=== PATIENT | male | born 1980 | race Caucasian/White ===

== ENCOUNTER 2022-10-29 22:48 | Emergency (ER) | payer MEDICARE, MEDICAID, SELFPAY ==
--- NOTE | ~2022-10-29 | NM_ITS ---
Nuclear Medicine Procedure: Perfusion/Ventilation Lung Scan History: Pulmonary embolus. Interpretation: Ventilation portion exam was not performed due to Covid 19 precautions. 5.5 mCi. of Technetium-labeled microspheres were injected intravenously and multiple images obtained in 8 projections revealed normal perfusion to the lungs without any segmental or subsegmental defects . Impression: Normal perfusion lung scan. This excludes clinically significant pulmonary emboli. ............................................................... The following are reference parameters for VQ scan interpretation: 1. Normal or Near-Normal Lung Scan: This excludes clinically significant pulmonary embolism. Angiography is not necessary. 2. High Probability for Pulmonary Embolism: There is over 90% probability for acute pulmonary embolism. Angiography is not necessary for confirmation. 3. A. Intermediate (low end): Whereas unlikely to be PE based on V/Q scan alone, there is a 10-25% probability for pulmonary embolism (PE) based upon the level of clinical suspicion. B. Intermediate (high end): Depending upon the level of clinical suspicion, there is a 30-60% probability for pulmonary embolism. Reviewed, dictated and finalized at location . INERY RIGGER Impression: Normal perfusion lung scan. This excludes clinically significant pu lmonary emboli. ............................................................... The following are reference parameters for VQ scan interpretation: 1. Normal or Near-Normal Lung Scan: This excludes clinically significant pulmonary embolism. Angiography is not necessary. 2. High Probability for Pulmonary Embolism: There is over 90% probability for acute pulmonary embolism. Angiography is not necessary for confirmation. 3. A. Intermediate (low end): Whereas unlikely to be PE based on V/Q scan alone, there is a 10-25% probability for pulmonary embolism (PE) based upon the level of clinical suspicion. B. Intermediate (high end): Depending upon the level of clinical suspicion, there is a 30-60% probability for pulmonary embolism.
--- NOTE | ~2022-10-29 | XR_ITS ---
Clinical Indication: Chest pain PA and lateral views of the chest: Comparison: 06/12/2016 Findings: Questionable minimal bibasilar groundglass opacity. No pleural effusion or pneumothorax. Ca rdiomediastinal silhouette is within normal limits. Bones and soft tissues are unremarkable. Impression: Questionable minimal bibasilar ground glass opacity. Correlate for mild pulmonary edema or atypical i nfection. Reviewed, dictated and finalized at location M. ENTER MAINTENANCE Impression: Questionable minimal bibasilar ground glass opacity. Correlate for mild pulmona ry edema or atypical infection.
--- NOTE | 2022-10-29 22:49 | ECG_ITS ---
Measurements Intervals [place] Rate: 116 P: 41 MD: 165 QRS: 17 QRSD: 81 T: 97 QT: 341 QTc: 475 Interpretive Statements SINUS TACHYCARDIA LEFT ATRIAL ENLARGEMENT INCOMPLETE RIGHT BUNDLE BRANCH BLOCK BORDERLINE ST-T WAVE ABNORMALITY- DIFFUSE LEADS BASELINE ARTIFACT- I, II, III, AVR, AVL ABNORMAL ECG NO PREVIOUS ECG AVAILABLE FOR COMPARISON Electronically Signed On 10-30-2022 8:02:53 DISTRIBUTOR OPERATOR by Saurabh Torres D.O.
[2022-10-29 23:03] VITALS: BP 175/110; PULSE 119; RESP 28; TEMP 36.6; O2SAT 100
[2022-10-29 23:37] LABS: Basophils Absolute Auto 0.1 K/mm3 (0.0-0.1); Basophils Percent Auto 0.8 % (0.2-1.2); Eosinophils Absolute Auto 0.4 K/mm3 (0-0.3); Eosinophils Percent Auto 2.3 % (0-4.4); Hematocrit 41.6 % (42.0-52.0); Hemoglobin 13.8 g/dL (14.0-18.0); Immature Granulocyte Absolute 0.29 K/mm3 (0.00-0.031); Immature Granulocyte Percent A 1.6 % (0-0.5); Lymphocytes Absolute Auto 2.58 K/mm3 (0.9-3.2); Lymphocytes Percent Auto 14.5 % (18.3-44.2); Mean Corpuscular HGB Conc 33.2 g/dl (32-36); Mean Corpuscular Hemoglobin 29.1 pg (26-34); Mean Corpuscular Volume 87.8 fl (80-100); Mean Platelet Volume 11.2 fl (7.4-10.4); Monocytes Percent Auto 5.8 % (2.6-8.5); Neutrophils Absolute Auto 13.3 K/mm3 (1.3-6.7); Platelet Count Result 432 k/mm3 (150-375); Red Blood Count 4.74 M/mm3 (4.6-6.20); Red Cell Distribution Width 14.4 % (11.5-14.5); White Blood Count 17.8 K/mm3 (4.5-10.0)
[2022-10-29 23:47] LABS: INR 1.1; Prothrombin Time 13.5 Seconds (11.1-14.7)
[2022-10-29 23:48] LABS: Partial Thromboplastin Time 34.7 SECONDS (22.3-36.8)
--- NOTE | 2022-10-29 23:56 | PC.NURSE ---
patient outside to smoke at this time
[2022-10-30 00:06] LABS: Alanine Aminotransferase 40 U/L (6-50); Albumin Level 4.4 g/dL (3.5-5.1); Alkaline Phosphatase 122 U/L (38-126); Anion Gap 7 mmol/L (8-16); Aspartate Amino Transferase 24 U/L (17-59); Bilirubin,Total 0.3 mg/dL (0.2-1.3); Blood Urea Nitrogen 16 mg/dL (9-20); Calcium 9.6 mg/dL (8.4-10.2); Carbon Dioxide 27 mmol/L (22-30); Chloride 102 mmol/L (98-107); Estimated CRCL calculation 82 ml/min; Estimated Glomerular Filt Rate > 60; Glucose 116 mg/dL (65-110); Lipase 429 U/L (23-300); Potassium 4.1 mmol/L (3.4-5.0); Sodium 136 mmol/L (137-145)
[2022-10-30 00:15] LABS: Troponin I 0.018 ng/mL (0.000-0.034)
--- NOTE | 2022-10-30 01:33 | PC.NURSE ---
noted yoselin has walked out to parking lot several times to smoke no sob noted no discomfort noted
[2022-10-30 03:11] VITALS: PULSE 110
[2022-10-30 03:22] LABS: Troponin I 0.021 ng/mL (0.000-0.034)
--- NOTE | 2022-10-30 03:27 | ED.CHESTPAIN ---
HPI - Chest Pain General Chief Complaint: Chest Pain Stated Complaint: chest pain for one week [facility] Time Seen by Provider: 10/30/22 02:44 History of Present Illness HPI narrative: This is a 42-year-old gentleman with reported past medical history of CHF and multiple PEs on Xarelto, who presents to the emergency department complaining of chest pain for the past week. He describes the pain as sharp, in the left chest without radiation, aggravated by cough and physical exertion. He denies nausea/vomiting or diaphoresis. He he also complains of cough productive of thick yellow without blood. He has no other complaints today. Related Data Allergies Allergy/AdvReac Type Severity Reaction Status Date / Time iodine Allergy Unknown Verified 07/06/16 14:14 Contrast Media Allergy Unknown Uncoded 03/31/16 21:54 Review of Systems Review of Systems: CONSTITUTIONAL: Denies fever, chills, or sweats. CARDIOVASCULAR: Left-sided chest pain and palpitation denies edema. RESPIRATORY: Cough productive of yellow sputum without blood denies dyspnea. GASTROINTESTINAL: Denies abdominal pain, nausea, vomiting, or diarrhea. GENITOURINARY: Denies dysuria or hematuria. SKIN: Denies rash or itching. MUSCULOSKELETAL: Denies back pain, joint pain, or myalgia. NEUROLOGIC: Denies headache, numbness, dizziness, or weakness. PSYCHIATRIC: Denies anxiety or depression. PMFSH Past Medical History Medical History (Updated 10/30/22 @ 07:26 by Thai Ward MD) Benign essential hypertension Bipolar 1 disorder, depressed COPD with asthma Personal history of pulmonary embolism PTSD (post-traumatic stress disorder) Family History Family History Other Hypertension Social History Social History (Updated 10/30/22 @ 03:30 by Thai Ward MD) Smoking status: Former smoker Alcohol intake: never Substance use: never Exam Narrative: GENERAL: Well-developed, well-nourished, appears anxious. Mildly diaphoretic HEAD: Normocephalic, atraumatic. EYES: PERRLA and EOMI. ENT: Nares clear, no rhinorrhea or epistaxis. Mucous membranes moist. Oropharynx without tonsillar hypertrophy exudate or other lesions. NECK: Supple. No adenopathy or masses. No carotid bruits or JVD CHEST: Clear to auscultation. No respiratory distress. No wheezes rales or rhonchi HEART: Tachycardic with regular rhythm. No murmur heard. Normal peripheral pulses. ABDOMEN: Soft, nontender, nondistended, normal active bowel sounds. EXTREMITIES: Normal range of motion. No edema. SKIN: Warm, dry, no rash. NEURO: No focal deficits. Alert and oriented x3. PSYCH: Normal mood and affect. Course Course Emergency Course: 03:46 - On my review of chest x-ray, there are changes consistent with pulmonary edema versus patchy infiltration. BNP elevated to 1480 will treat with IV Lasix and a dose of azithromycin. 04:05 - Received notification from tree and shrub technician, the patient has a noted history of allergic reaction to contrast dye. After speaking with the patient, he states he suffered cardiac arrest after receiving contrast will order D-dimer and potential VQ scan. Requested copy of radiology results from the outside hospital. 04:49 - Repeat troponin equivocal and overall negative. VQ scan will not be completed until 06:00. 06:30 -patient underwent chest x-ray at outside hospital with changes concerning for pulmonary edema. It does not appear the patient underwent imaging for PE. 07:00 - Patient signed out to oncoming ED physician, Dr. Fairchild, pending V/Q results. I anticipate admission for new onset CHF. Vital Signs Vital signs: Vital Signs Temperature 97.8 F 10/29/22 23:03 Pulse Rate 119 H 10/29/22 23:03 Respiratory Rate 28 H 10/29/22 23:03 Blood Pressure 175/110 H 10/29/22 23:03 Pulse Oximetry 100 10/29/22 23:03 Oxygen Delivery Room Air 10/29/22 23:03 Temperature 97.8 F 10/29/22 23:03 Pulse
[2022-10-30 03:35] LABS: D Dimer 0.56 ug/mL (<0.48)
[2022-10-30 03:44] LABS: NT Pro B Type Natriuretic Pept 1480 pg/mL (5-100)
[2022-10-30] MEDS: ASPIRIN 81 MG CHEWABLE TABLET 324 MG PO (03:54)
[2022-10-30] MEDS: FUROSEMIDE INJ 40 MG/4 ML VIAL IV PUSH (04:02)
[2022-10-30 04:21] LABS: Influenza A QL RT-PCR Negative (Negative); Influenza B QL RT-PCR Negative (Negative); SARS-CoV-2 RNA PCR Negative
[2022-10-30] MEDS: AZITHROMYCIN 250 MG TABLET 500 MG PO (05:07)
[2022-10-30 07:00] VITALS: BP 163/96; PULSE 106; RESP 24; O2SAT 98
[2022-10-30 07:21] LABS: Influenza A QL RT-PCR Negative (Negative); Influenza B QL RT-PCR Negative (Negative); SARS-CoV-2 RNA PCR Negative
--- NOTE | 2022-10-30 08:18 | ED.CHESTPAIN ---
HPI - Chest Pain General Chief Complaint: Chest Pain Stated Complaint: chest pain for one week [facility] Time Seen by Provider: 10/30/22 02:44 Related Data Allergies Allergy/AdvReac Type Severity Reaction Status Date / Time iodine Allergy Unknown Verified 07/06/16 14:14 Contrast Media Allergy Unknown Uncoded 03/31/16 21:54 [facility] Past Medical History Medical History (Updated 10/30/22 @ 07:26 by Thai Ward MD) Benign essential hypertension Bipolar 1 disorder, depressed COPD with asthma Personal history of pulmonary embolism PTSD (post-traumatic stress disorder) Family History Family History Other Hypertension Social History Social History (Updated 10/30/22 @ 03:30 by Thai Ward MD) Smoking status: Former smoker Alcohol intake: never Substance use: never Course Reevaluation(s) Reevaluation #1: Patient feeling much better, and declined to be hospitalized. I declare that I have personally explained to the patient the risks and consequences involved in leaving this facility at this time. the benefits of continued treatment and/or hospitalization. And the alternatives. If any. to continued treatment and/or hospitalization. if applicable.I have not identified any psychosis, drugs, mental illness, or medical illness that alters decision-making capacity (reasoning abilities ). Date: 10/30/22 Time: 09:14 Consultations Consultation #1: DR TURPIN Date: 10/30/22 Time: 09:12 Vital Signs Vital signs: Vital Signs Temperature 36.6 C 10/29/22 23:03 Pulse Rate 119 H 10/29/22 23:03 Respiratory Rate 28 H 10/29/22 23:03 Blood Pressure 175/110 H 10/29/22 23:03 Pulse Oximetry 100 10/29/22 23:03 Oxygen Delivery Room Air 10/29/22 23:03 Temperature 36.6 C 10/29/22 23:03 Pulse Rate 110 H 10/30/22 03:11 Respiratory Rate 28 H 10/29/22 23:03 Blood Pressure 175/110 H 10/29/22 23:03 Pulse Oximetry 100 10/29/22 23:03 Oxygen Delivery Room Air 10/29/22 23:03 MDM - Chest Pain Lab Data 10/29/22 23:25 10/29/22 23:26 Labs: Lab Results 10/29/22 10/29/22 10/29/22 Range/Units 23:25 23:25 23:25 WBC 17.8 H (4.5-10.0) K/mm3 RBC 4.74 (4.6-6.20) M/mm3 Hgb 13.8 L (14.0-18.0) g/dL Hct 41.6 L (42.0-52.0) % MCV 87.8 (80-100) fl MCH 29.1 (26-34) pg MCHC 33.2 (32-36) g/dl RDW 14.4 (11.5-14.5) % Plt Count 432 H (150-375) k/mm3 MPV 11.2 H (7.4-10.4) fl Immature Gran % (Auto) 1.6 H (0-0.5) % Neut % (Auto) 75.0 H (45.5-73.1) % Lymph % (Auto) 14.5 L (18.3-44.2) % [place] % (Auto) 5.8 (2.6-8.5) % Eos % (Auto) 2.3 (0-4.4) % Baso % (Auto) 0.8 (0.2-1.2) % Lymph # (Auto) 2.58 (0.9-3.2) K/mm3 [place] # (Auto) 1.0 H (0.1-0.6) K/mm3 Eos # (Auto) 0.4 H (0-0.3) K/mm3 Baso # (Auto) 0.1 (0.0-0.1) K/mm3 Abs Immat Gran (auto) 0.29 H (0.00-0.031) K/mm3 Absolute Neuts (auto) 13.3 H (1.3-6.7) K/mm3 Absolute Nucleated RBC 0.0 (0.0-0.012) K/mm3 Nucleated RBC % 0.0 (0.0-0.2) % PT (11.1-14.7) Seconds INR APTT (22.3-36.8) SECONDS D-Dimer 0.56 H (<0.48) ug/mL Sodium (137-145) mmol/L Potassium (3.4-5.0) mmol/L Chloride (98-107) mmol/L Carbon Dioxide (22-30) mmol/L Anion Gap (8-16) mmol/L BUN (9-20) mg/dL Creatinine (0.7-1.3) mg/dL Estim Creat Clear Calc ml/min Estimated GFR (59 - ) Glucose (65-110) mg/dL Calcium (8.4-10.2) mg/dL Total Bilirubin (0.2-1.3) mg/dL AST (17-59) U/L ALT (6-50) U/L Alkaline Phosphatase (38-126) U/L Troponin I (0.000-0.034) ng/mL NT-Pro-B Natriuret Pep 1480 H (5-100) pg/mL Total Protein (6.3-8.2) g/dL Albumin (3.5-5.1) g/dL Lipase (23-300) U/L Influenza A (RT-PCR) (Negative) Influenza B (RT-PCR) (Negative) SARS-CoV-2 RNA (RT-PCR)
--- NOTE | 2022-10-30 08:36 | PC.NURSE ---
heart healthy breakfast tray ordered
== END 2022-10-30 09:25 | disposition left against medical advice (07) ==
PROVIDERS: Preventive Medicine Aerospace Medicine; Emergency Provider Emergency Medicine; PCP Internal Medicine
DX: R07.9 Chest pain, unspecified (principal); R00.0 Tachycardia, unspecified; I50.1 Left ventricular failure, unspecified; Z20.822 Contact with and (suspected) exposure to COVID-19; J44.9 Chronic obstructive pulmonary disease, unspecified; I50.9 Heart failure, unspecified; Z86.711 Personal history of pulmonary embolism; Z79.01 Long term (current) use of anticoagulants; I45.10 Unspecified right bundle-branch block; R94.31 Abnormal electrocardiogram [ECG] [EKG]
CPT/HCPCS: 36415; 71046; 78580; 80053; 83690; 83880; 84484; 85025; 85380; 85610; 85730; 87636; 93005; 96374; 96375; 99284; A9270; A9540; J0131; J1940

== ENCOUNTER 2022-12-05 21:12 | Inpatient (IN) | payer MEDICARE, MEDICAID, SELFPAY ==
--- NOTE | ~2022-12-05 | CT_ITS ---
EXAMINATION: CTA chest PE protocol DATE: 12/07/2022 08:23 INDICATION: Shortness of breath. Chest pain. TECHNIQUE: Computed tomography angiography (CTA) of the chest was performed with 100 mL Omnipaque-350 intravenous contrast timed to evaluate the pulmonary arteries. Coronal maximum intensity projection 3D-reconstructions were created by the technologist. Automated exposure control and iterative reconst ruction technique were employed. The dose-length product was 923.74 mGy-cm. COMPARISON: Chest CT 06/12/2016 FINDINGS: There is mild emphysema. Again seen is a 5 mm nodule in right middle lobe, likely benign. T here is a 3 mm nodule at minor fissure, likely benign. There is mild atelectasis bilaterally. No pleu ral effusion. The heart size is normal. There is no pulmonary embolus. There is mild thoracic spondyl osis. IMPRESSION: 1. No pulmonary embolus. 2. Mild emphysema. Reviewed, dictated and finalized at location A. OFILM EQUIPMENT INSPECTOR
--- NOTE | ~2022-12-05 | XR_ITS ---
XR chest 1V portable DATE: 12/05/2022 22:37 INDICATION: Dyspnea. Asthma. TECHNIQUE: Portable AP chest on December 05, 2022 at 2236 hours COMPARISON: 10/30/2022 pulmonary perfusion scan 10/29/2022 2 view chest FINDINGS: Normal heart size. No hilar or mediastinal enlargement. No pulmonary infiltrate or consolid ation, pleural effusion or pulmonary vascular congestion or pneumothorax. IMPRESSION: No active cardiopulmonary disease Reviewed, dictated and finalized at location A. ATRIC PATHOLOGIST
--- NOTE | ~2022-12-05 | US_ITS ---
EXAMINATION: US venous doppler [facility] DATE: 12/06/2022 13:29 INDICATION: edema . TECHNIQUE: Grayscale images without and with compression and Doppler images of the bilateral lower ex tremity veins were obtained. COMPARISON: None FINDINGS: The right common femoral vein, profunda (deep) femoral vein, femoral vein, popliteal vein, peroneal v ein, posterior tibial veins, gastrocnemius vein, and greater saphenous vein are patent. The left common femoral vein, profunda femoral vein, femoral vein, popliteal vein, peroneal vein, pos terior tibial veins, gastrocnemius vein, and greater saphenous vein are patent. IMPRESSION: 1. Patent bilateral lower extremity veins. No evidence of deep venous thrombosis. Reviewed, dictated and finalized at location K. ATOLOGY TEACHER IMPRESSION: 1. Patent bilateral lower extremity veins. No evidence of deep venous thrombos is.
[2022-12-05 21:12] VITALS: BP 163/114; PULSE 119; RESP 28; TEMP 37.1; O2SAT 98
--- NOTE | 2022-12-05 21:21 | ECG_ITS ---
Measurements Intervals [place] Rate: 115 P: 29 CT: 140 QRS: 56 QRSD: 83 T: 59 QT: 379 QTc: 525 Interpretive Statements SINUS TACHYCARDIA POSSIBLE LEFT ATRIAL ENLARGEMENT [-0.1mV P WAVE IN V1/V2] POSSIBLE RIGHT VENTRICULAR CONDUCTION DELAY [RSR (QR) IN V1/V2] NONSPECIFIC ST & T-WAVE ABNORMALITY ABNORMAL RHYTHM ECG COMPARED TO ECG 10/29/2022 22:56:22 NO SIGNIFICANT CHANGE Electronically Signed On 12-06-2022 8:27:37 DRAGLINE ENGINEER by Yashira Davison M.D.
--- NOTE | 2022-12-05 21:27 | ED.CHESTPAIN ---
HPI - Chest Pain General Chief Complaint: Chest Pain <Tash Olivia PA-C - Last Filed: 12/06/22 00:59> Stated Complaint: chest pain <Tash Olivia PA-C - Last Filed: 12/06/22 00:59> Time Seen by Provider: 12/05/22 21:17 <Tash Olivia PA-C - Last Filed: 12/06/22 00:59> History of Present Illness HPI narrative: 42-year-old male with a history of hypertension, hyperlipidemia, congestive heart failure, COPD, KIM reports for chest pain for 13 hours. Patient states at onset of chest pain he was sitting watching TV reports he took 2 aspirin 12 hours ago. Throughout the day the chest pain is increased with associated shortness of breath. Denies arm pain, jaw pain, shoulder pain, back pain, diaphoresis. Patient does report increased sputum production and cough the past couple days. Denies fever, body aches, chills. States he was diagnosed with CHF about 1 year ago at [place] and has since been back multiple times but leaves AMA because he doesn't want to believe he has CHF. Denies lower extremity edema, abdominal swelling. He reports he is anticoagulated with Xarelto because due to a history of 2 PEs. He is not on home oxygen and is supposed to wear CPAP at night, however has not been because he states that CPAP has been recalled. Patient states he drinks alcohol occasionally. <Tash Olivia PA-C - Last Filed: 12/06/22 00:59> Related Data Home Medications: Home Medications Medication Instructions Recorded Confirmed amlodipine 10 mg tablet 10 mg PO DAILY 12/06/22 12/06/22 atorvastatin 40 mg tablet 40 mg PO DAILY 12/06/22 12/06/22 doxycycline hyclate 100 mg tablet 100 mg PO DAILY 12/06/22 12/06/22 fluticasone furoate 200 1 inh inhalation Q4-5H PRN 12/06/22 12/06/22 mcg-vilanterol 25 mcg/dose Shortness Of Breath inhalation powder (Breo Ellipta) fluticasone propionate 50 1 spray intranasal QAM 12/06/22 12/06/22 mcg/actuation nasal spray,suspension lisinopril 10 mg tablet 10 mg PO DAILY 12/06/22 12/06/22 metformin 1,000 mg tablet 1,000 mg PO DAILY 12/06/22 12/06/22 rivaroxaban 20 mg tablet (Xarelto) 20 mg PO DAILY 12/06/22 12/06/22 <Tash Olivia PA-C - Last Filed: 12/06/22 00:59> Allergies/Adverse Reactions: Allergies Allergy/AdvReac Type Severity Reaction Status Date / Time iodine Allergy Unknown Verified 07/06/16 14:14 Contrast Media Allergy Unknown Uncoded 03/31/16 21:54 <Tash Olivia PA-C - Last Filed: 12/06/22 00:59> Review of Systems Review of Systems: CONSTITUTIONAL: Denies fever, chills EYES: Denies visual changes, redness, or discharge. ENT: Denies rhinorrhea, congestion, sore throat, or otalgia. CARDIOVASCULAR: see HPI RESPIRATORY: See HPI GASTROINTESTINAL: Denies abdominal pain, nausea, vomiting, or diarrhea. GENITOURINARY: Denies dysuria or hematuria. SKIN: Denies rash or itching. MUSCULOSKELETAL: Denies back pain, joint pain, or myalgia. NEUROLOGIC: Denies headache, numbness, dizziness, or weakness. PSYCHIATRIC: Denies anxiety or depression. <Tash Olivia PA-C - Last Filed: 12/06/22 00:59> PMF Past Medical History Medical History: Medical History Benign essential hypertension Bipolar 1 disorder, depressed COPD with asthma Personal history of pulmonary embolism PTSD (post-traumatic stress disorder) <Tash Olivia PA-C - Last Filed: 12/06/22 00:59> Family History Family History: Family History Other Hypertension <Tash Olivia PA-C - Last Filed: 12/06/22 00:59> Social History Social History: Social History Smoking packs per day: 0.10 Smoking cigarettes per day: 2.0 Years smoked: 31 Smoking pack-years: 3.10 Smoking status: Current every day smoker Alcohol intake: current Drinks per week: 1 Substance use:
[2022-12-05 21:32] LABS: Basophils Absolute Auto 0.1 K/mm3 (0.0-0.1); Basophils Percent Auto 0.8 % (0.2-1.2); Eosinophils Absolute Auto 0.5 K/mm3 (0-0.3); Eosinophils Percent Auto 2.9 % (0-4.4); Hematocrit 41.1 % (42.0-52.0); Hemoglobin 13.8 g/dL (14.0-18.0); Immature Granulocyte Absolute 0.15 K/mm3 (0.00-0.031); Lymphocytes Absolute Auto 2.33 K/mm3 (0.9-3.2); Lymphocytes Percent Auto 15.1 % (18.3-44.2); Mean Corpuscular HGB Conc 33.6 g/dl (32-36); Mean Corpuscular Hemoglobin 29.1 pg (26-34); Mean Corpuscular Volume 86.7 fl (80-100); Mean Platelet Volume 11.1 fl (7.4-10.4); Monocytes Percent Auto 6.3 % (2.6-8.5); Neutrophils Absolute Auto 11.4 K/mm3 (1.3-6.7); Neutrophils Percent Auto 73.9 % (45.5-73.1); Platelet Count Result 331 k/mm3 (150-375); Red Blood Count 4.74 M/mm3 (4.6-6.20); Red Cell Distribution Width 14.6 % (11.5-14.5); White Blood Count 15.4 K/mm3 (4.5-10.0)
[2022-12-05 21:38] LABS: Alanine Aminotransferase 42 U/L (6-50); Albumin Level 4.9 g/dL (3.5-5.1); Alkaline Phosphatase 80 U/L (38-126); Anion Gap 10 mmol/L (8-16); Aspartate Amino Transferase 21 U/L (17-59); Bilirubin,Total 0.5 mg/dL (0.2-1.3); Blood Urea Nitrogen 24 mg/dL (9-20); Calcium 9.9 mg/dL (8.4-10.2); Carbon Dioxide 24 mmol/L (22-30); Chloride 105 mmol/L (98-107); Estimated CRCL calculation 93 ml/min; Estimated Glomerular Filt Rate > 60; Glucose 122 mg/dL (65-110); Lipase 891 U/L (23-300); Potassium 3.8 mmol/L (3.4-5.0); Sodium 139 mmol/L (137-145)
[2022-12-05 21:49] LABS: NT Pro B Type Natriuretic Pept 745 pg/mL (19.9-100)
[2022-12-05 21:50] LABS: Troponin I < 0.012 ng/mL (0.000-0.034)
[2022-12-05 22:01] VITALS: BP 163/111; PULSE 111; RESP 23; O2SAT 100
[2022-12-05 22:03] LABS: Prothrombin Time 12.7 Seconds (11.1-14.7)
[2022-12-05 22:04] LABS: Partial Thromboplastin Time 29.9 SECONDS (22.3-36.8)
[2022-12-05] MEDS: SODIUM CHLORIDE 0.9% IV 1,000 ML 999 ML IV CONT (22:15)
[2022-12-05] MEDS: methylPREDNISolone SOD SUCC 125 MG VIAL IV PUSH (22:20)
[2022-12-05] MEDS: MAGNESIUM SULF 2 GM/WATER 50ML 2 GM/50 ML BAG IVPB (22:23)
[2022-12-05] MEDS: IPRATROPIUM BR 0.02% INH SOLN 0.5 MG/2.5 ML VIAL INHALATION (22:32)
[2022-12-05] MEDS: ALBUTEROL SULFATE NEB 2.5 MG/3 ML INH INHALATION (22:33)
[2022-12-05 23:19] VITALS: BP 167/101; PULSE 112; RESP 23; O2SAT 100
[2022-12-06] VITALS (18 sets, daily range): BP systolic 145–173; BP diastolic 70–98; PULSE 95–126; RESP 16–23; TEMP 36.4–37.1; O2SAT 96–99; BMI 43.9
--- NOTE | 2022-12-06 00:11 | PM.IMHP ---
H&P: HPI History of Present Illness Date/Time: 12/06/22 00:11 Chief Complaint: SHORTNESS OF BREATH Narrative: This is a 42-year-old male with past medical history significant for tobacco dependence, COPD/emphysema, obesity, hypertension, posttraumatic stress disorder. Patient presents to the emergency room due to shortness of breath, wheezing, cough, sputum production green to yellow copious thick secretions, denies fevers rigors or chills, no nausea, no vomiting no diarrhea no abdominal pain. Patient has been trying to quit has gone down from 2 packs a day of cigarettes to 1-2 cigarettes. Patient has been admitted for further evaluation management and treatment. Review of Systems Review of Systems: Shortness of breath, wheezing, cough, production of sputum Constitutional: Constitutional: Denies chills, Reports fatigue, Denies fever(s), Reports lethargy, Denies malaise, Denies night sweats, Denies poor appetite and Denies weakness Eyes: Eyes: Denies change in vision ENT: Denies dysphagia, Denies vertigo, Denies dizziness and Denies odynophagia Cardiovascular: Cardiovascular: Denies chest pain, Denies leg edema, Denies lightheadedness, Denies radiating jaw, neck or arm pain and Denies palpitations Respiratory: Respiratory: Reports change in phlegm color, Reports chest congestion, Reports cough, Reports excessive phlegm production, Reports dyspnea, Reports dyspnea on exertion and Reports wheezing Gastrointestinal: Gastrointestinal: Denies abdominal pain, Denies dyspepsia, Denies heartburn, Denies diarrhea, Denies nausea and Denies vomiting Genitourinary: Genitourinary: Denies dysuria Musculoskeletal: Musculoskeletal: Denies back pain, Denies joint swelling and Denies muscle weakness Integumentary/Breasts: Skin/Breast: Denies rash Neurologic: Denies vertigo, Denies dizziness, Denies focal weakness and Denies Sensory deficit (Neuro) Psychiatric: Psychiatric: Reports no additional psychiatric complaints and Reports as per HPI Endocrine: Endocrine: Denies cold intolerance, Denies flushing, Denies heat intolerance, Denies polyphagia, Denies polydipsia and Denies palpitations Hematologic/Lymphatic: Hematologic/Lymphatic: Reports no additional hematologic/lymphatic complaints and Reports as per HPI Allergic/Immunologic: Allergic/Immunologic: Reports no additional allergic/immunologic complaints and Reports as per HPI PMFSH Past Medical History Medical History Benign essential hypertension Bipolar 1 disorder, depressed COPD with asthma Personal history of pulmonary embolism PTSD (post-traumatic stress disorder) Family History Family History Other Hypertension Social History Social History Smoking packs per day: 0.10 Smoking cigarettes per day: 2.0 Years smoked: 31 Smoking pack-years: 3.10 Smoking status: Current every day smoker Alcohol intake: current Drinks per week: 1 Substance use: never Lack of Transportation: No Lack of Food: Never True Current Housing: I Have Housing Concerned About Future Housing: No Difficulty Paying Gas/Electric Bills: No Difficulty Paying for Meds: No Currently Unemployed: No Education: Grade School Difficulty w/ Childcare or Family Care: No Spiritual care concerns: No Meds Home Medications and Allergies Allergies Allergy/AdvReac Type Severity Reaction Status Date / Time iodine Allergy Unknown Verified 07/06/16 14:14 Contrast Media Allergy Unknown Uncoded 03/31/16 21:54 Vital Signs Vital Signs - 24 hr 12/05/22 21:12 12/05/22 22:01 12/05/22 23:19 Temperature 98.7 F Pulse Rate 119 H 111 H 112 H Respiratory Rate 28 H 23 H 23 H Blood Pressure 163/114 H 163/111 H 167/101 H Pulse Oximetry 98 100 100 Oxygen Delivery Room Air 12/06/22 00:06 Temperature Pulse R
[2022-12-06 00:52] LABS: Influenza A QL RT-PCR Negative (Negative); Influenza B QL RT-PCR Negative (Negative); SARS-CoV-2 RNA PCR Negative
[2022-12-06 01:25] LABS: Troponin I < 0.012 ng/mL (0.000-0.034)
[2022-12-06 05:43] LABS: Troponin I < 0.012 ng/mL (0.000-0.034)
[2022-12-06 07:51] LABS: Basophils Percent Auto 0.2 % (0.2-1.2); Eosinophils Percent Auto 0.1 % (0-4.4); Hematocrit 40.2 % (42.0-52.0); Hemoglobin 13.3 g/dL (14.0-18.0); Immature Granulocyte Absolute 0.11 K/mm3 (0.00-0.031); Immature Granulocyte Percent A 0.9 % (0-0.5); Lymphocytes Percent Auto 4.2 % (18.3-44.2); Mean Corpuscular HGB Conc 33.1 g/dl (32-36); Mean Corpuscular Hemoglobin 29.4 pg (26-34); Mean Corpuscular Volume 88.9 fl (80-100); Mean Platelet Volume 11.6 fl (7.4-10.4); Monocytes Absolute Auto 0.1 K/mm3 (0.1-0.6); Monocytes Percent Auto 0.5 % (2.6-8.5); Neutrophils Absolute Auto 11.2 K/mm3 (1.3-6.7); Neutrophils Percent Auto 94.1 % (45.5-73.1); Platelet Count Result 296 k/mm3 (150-375); Red Blood Count 4.52 M/mm3 (4.6-6.20); Red Cell Distribution Width 14.8 % (11.5-14.5); White Blood Count 11.9 K/mm3 (4.5-10.0)
[2022-12-06 08:10] LABS: Glucose Point of Care 199 mg/dl (65-105)
[2022-12-06 08:10] LABS: Hemoglobin A1C 5.5 % (<5.7)
[2022-12-06 08:35] LABS: Alanine Aminotransferase 52 U/L (6-50); Albumin Level 4.7 g/dL (3.5-5.1); Alkaline Phosphatase 85 U/L (38-126); Anion Gap 12 mmol/L (8-16); Aspartate Amino Transferase 33 U/L (17-59); Bilirubin,Total 0.4 mg/dL (0.2-1.3); Blood Urea Nitrogen 22 mg/dL (9-20); Calcium 9.5 mg/dL (8.4-10.2); Carbon Dioxide 20 mmol/L (22-30); Chloride 104 mmol/L (98-107); Estimated CRCL calculation 98 ml/min; Estimated Glomerular Filt Rate > 60; Glucose 265 mg/dL (65-110); Potassium 3.9 mmol/L (3.4-5.0); Sodium 136 mmol/L (137-145)
[2022-12-06] MEDS: amLODIPine BESYLATE 5 MG TABLET 10 MG PO (09:02)
[2022-12-06] MEDS: RIVAROXABAN 20 MG TABLET PO (09:02)
[2022-12-06] MEDS: ATORVASTATIN 40 MG TABLET PO (09:02)
[2022-12-06] MEDS: metFORMIN HCL 500 MG TABLET 1000 MG PO (09:02)
[2022-12-06] MEDS: FLUTICASONE PROPIONATE 0.05% NA SPR 16 GM BTL (*BKC) 1 SPRAY NASAL (09:03)
[2022-12-06] MEDS: lisinopriL 10 MG TABLET PO (09:03)
[2022-12-06] MEDS: methylPREDNISolone SOD SUCC 40 MG VIAL IV PUSH ×3 (09:03→19:53)
[2022-12-06 09:25] LABS: Appearance Urine Clear (Clear); Bilirubin Urine Negative (Negative); Blood Urine Trace-lysed (Negative); Color Urine Yellow (Yellow); Glucose Urine UA 2+ mg/dL (Negative); Ketones Urine Negative (Negative); Leukocyte Esterase Ur Negative LEU/UL (Negative); Nitrate Urine Negative (Negative); Protein Urine 2+ mg/dL (Negative); Specific Grav Ur >= 1.030 (1.001-1.035); Urobilinogen Urine 0.2 mg/dL (<2.0); pH Urine 5.5 (5.0-9.0)
[2022-12-06 09:28] LABS: Mucus Urine Rare /lpf; RBC Urine 0-2 /hpf (0-2); Squamous Epithelial Cell Urine Rare /hpf (Few); WBC Urine 0-3 /hpf
[2022-12-06 09:29] LABS: Add Urine Microscopic? YES
--- NOTE | 2022-12-06 11:45 | PM.IMPN ---
Progress Note: A&P Assessment and Plan (1) Acute exacerbation of chronic obstructive pulmonary disease: Code(s): J44.1 - Chronic obstructive pulmonary disease with (acute) exacerbation Status: Acute Assessment and Plan: Reports shortness of breath, increased cough with sputum changes, and increased wheezes Admits to smoking 2ppd Neb treatments Continue azithromycin and Rocephin Solumedrol 40mg IV Q6H (2) Community acquired pneumonia: Qualifiers: Laterality: unspecified laterality Qualified Code(s): J18.9 - Pneumonia, unspecified organism Code(s): J18.9 - Pneumonia, unspecified organism Status: Acute Assessment and Plan: Chest xray appears to have an opacity/infiltrate Rocephin and Zithromax WBC 15.4 Solumedrol 40mg Q6H Trend labs Sputum culture (3) Tobacco dependence: Code(s): F17.200 - Nicotine dependence, unspecified, uncomplicated Status: Acute Assessment and Plan: 2 packs a day to 1-2 cigarettes a day Nicotine patch and gum as needed Education given (4) Hypertension: Code(s): I10 - Essential (primary) hypertension Status: Acute Assessment and Plan: BP is 157/73 Continue to monitor Continue home amlodipine, lisinopril adjust therapy as indicated (5) Pancreatitis: Code(s): K85.90 - Acute pancreatitis without necrosis or infection, unspecified Status: Acute Assessment and Plan: Lipase is 891 start NS Continue to trend lipase adjust therapy as indicated (6) Diabetes: Code(s): E11.9 - Type 2 diabetes mellitus without complications Status: Acute Assessment and Plan: Glucose is 122 Continue home metformin trend glucose Accu Cheks AC/HS A1c hypoglycemia protocol (7) Tachycardia with hypertension: Code(s): R00.0 - Tachycardia, unspecified; I10 - Essential (primary) hypertension Status: Acute Assessment and Plan: HR 126, BP 157/73 Continue tele monitor Switch albuterol to Xopenex Continue to trend Will check a D Dimer Wonder if this is a PE as the patient does appear to have a history Could also be related to CHF BNP ordered Venous doppler ordered Echo ordered for the am (8) Congestive heart failure: Code(s): I50.9 - Heart failure, unspecified Status: Acute Assessment and Plan: Patient stated that he was recently diagnosed with heart failur BNP is 745 Echo ordered for in the am Most likely chronic diastolic heart failure not in acute exacerbation Trend urine output Trend daily weights Consider one dose of IV lasix Add 25mg PO metoprolol Time Spent With Patient Time: 52 minutes Time with patient: Greater than 35 minutes Subjective Date/time seen: 12/06/22 1145 Interval history: 12/06/22 1145 Patient is doing well in bed. Patient did state that he was having issues with walking to the bathroom stated he got very short of breath. He denied any nausea, vomiting, diarrhea constipation. He is stating that he has a little bit of left chest pain however heart rate is high along with his blood pressure. BNP was 745 lipase is little high at 891. It does appear that the patient does have a history of PEs. Will get D-dimer and consider a CTA of the chest. Blood pressure and heart rate are also high. 12/06/22? 00:11 This is a 42-year-old male with past medical history significant for tobacco dependence, COPD/emphysema, obesity, hypertension, posttraumatic stress disorder.? Patient presents to the emergency room due to shortness of breath, wheezing, cough, sputum production green to yellow copious thick secretions, denies fevers rigors or chills, no nausea, no vomiting no diarrhea no abdominal pain.? Patient has been trying to quit has gone down from 2 packs a day of c
--- NOTE | 2022-12-06 11:45 | P.PNIM_ITS ---
Progress Note: A&P Assessment and Plan (1) Acute exacerbation of chronic obstructive pulmonary disease: Code(s): J44.1 - Chronic obstructive pulmonary disease with (acute) exacerbation Status: Acute Assessment and Plan: * Reports shortness of breath, increased cough with sputum changes, and increased wheezes * Admits to smoking 2ppd * Neb treatments * Continue azithromycin and Rocephin * Solumedrol 40mg IV Q6H (2) Community acquired pneumonia: Qualifiers: Laterality: unspecified laterality Qualified Code(s): J18.9 - Pneumonia, unspecified organism Code(s): J18.9 - Pneumonia, unspecified organism Status: Acute Assessment and Plan: * Chest xray appears to have an opacity/infiltrate * Rocephin and Zithromax * WBC 15.4 * Solumedrol 40mg Q6H * Trend labs * Sputum culture (3) Tobacco dependence: Code(s): F17.200 - Nicotine dependence, unspecified, uncomplicated Status: Acute Assessment and Plan: * 2 packs a day to 1-2 cigarettes a day * Nicotine patch and gum as needed * Education given (4) Hypertension: Code(s): I10 - Essential (primary) hypertension Status: Acute Assessment and Plan: * BP is 157/73 * Continue to monitor * Continue home amlodipine, lisinopril * adjust therapy as indicated (5) Pancreatitis: Code(s): K85.90 - Acute pancreatitis without necrosis or infection, unspecified Status: Acute Assessment and Plan: * Lipase is 891 * start NS * Continue to trend lipase * adjust therapy as indicated (6) Diabetes: Code(s): E11.9 - Type 2 diabetes mellitus without complications Status: Acute Assessment and Plan: * Glucose is 122 * Continue home metformin * trend glucose * Accu Cheks AC/HS * A1c * hypoglycemia protocol (7) Tachycardia with hypertension: Code(s): R00.0 - Tachycardia, unspecified; I10 - Essential (primary) hypertension Status: Acute Assessment and Plan: * HR 126, BP 157/73 * Continue tele monitor * Switch albuterol to Xopenex * Continue to trend * Will check a D Dimer * Wonder if this is a PE as the patient does appear to have a history * Could also be related to CHF * BNP ordered * Venous doppler ordered * Echo ordered for the am (8) Congestive heart failure: Code(s): I50.9 - Heart failure, unspecified Status: Acute Assessment and Plan: * Patient stated that he was recently diagnosed with heart failur * BNP is 745 * Echo ordered for in the am * Most likely chronic diastolic heart failure not in acute exacerbation * Trend urine output * Trend daily weights * Consider one dose of IV lasix * Add 25mg PO metoprolol Time Spent With Patient Time: 52 minutes Time with patient: Greater than 35 minutes Subjective Date/time seen: 12/06/22 1145 Interval history: 12/06/22 1145 Patient is doing well in bed. Patient did state that he was having issues with walking to the bathroom stated he got very short of breath. He denied any nausea, vomiting, diarrhea constipation. He is stating that he has a little bit of left chest pain however heart rate i
[2022-12-06 11:52] LABS: Glucose Point of Care 151 mg/dl (65-105)
[2022-12-06 13:11] LABS: NT Pro B Type Natriuretic Pept 678 pg/mL (19.9-100)
[2022-12-06 13:20] LABS: D Dimer 0.62 ug/mL (<0.48)
[2022-12-06] MEDS: FUROSEMIDE INJ 40 MG/4 ML VIAL IV PUSH (13:39)
[2022-12-06] MEDS: METOPROLOL TARTRATE INJ 5 MG/5 ML VIAL 2.5 MG IV PUSH (13:41)
[2022-12-06] MEDS: METOPROLOL TARTRATE 25 MG TABLET PO ×2 (14:12→19:53)
[2022-12-06 17:27] LABS: Glucose Point of Care 177 mg/dl (65-105)
[2022-12-06 21:11] LABS: Glucose Point of Care 289 mg/dl (65-105)
[2022-12-06] MEDS: ALBUTEROL SULFATE NEB 2.5 MG/3 ML INH INHALATION (23:54)
[2022-12-06] MEDS: IPRATROPIUM BR 0.02% INH SOLN 0.5 MG/2.5 ML VIAL INHALATION (23:54)
[2022-12-07] VITALS (15 sets, daily range): BP systolic 132–146; BP diastolic 76–90; PULSE 79–98; RESP 14–24; TEMP 36.8; O2SAT 94–98
--- NOTE | 2022-12-07 | ECHO_ITS ---
Patient Info Name: Enrike Dhaliwal Age: 42 years : 1980 Gender: Male Ht: 64 in Wt: 255 lbs BSA: 2.35 m2 HR: 90 bpm BP: 132 / 86 mmHg Technical Quality: Poor Exam Date: 12/07/2022 3:53 PM Exam Location: [facility] Pulmonary Exam Room: 245 Patient Status: Inpatient Admit Date: 12/06/2022 Staff Ordering Physician: Enrike Tripp Science And Operations Officer: Marian Winston RDCS Attending Provider: Edyta Mosley MD Referring Physician: Qasim SCHMIDT; Exam Type: CA echo dop bubble study w con Study Info Indications - sob Complete two-dimentional, color flow and Doppler transthoracic echocardiogram is performed with agitated saline and with contrast to opacify the left ventricle and to improve the delineation of the left ventricle endocardial borders. Contrast/Agitated Saline Contrast/Ag. Saline: Definity Amount: 2.00 ml Administered By: Marian Winston [facility] Existing IV Access: Yes IV Access Condition: patent with no signs of infiltration Reason for Poor Study: patient body habitus Summary 1. Left ventricular chamber dimension is normal. 2. Definity contrast administered improved wall motion interpretation. 3. Left ventricular systolic function is normal, estimated at 60-65%. 4. There is mildly increased left ventricular wall thickness. 5. The left ventricular diastolic function is grade I diastolic dysfunction. 6. E/e' 14 is mildly elevated. 7. There is trace mitral valve regurgitation. 8. No pulmonary hypertension, estimated pulmonary arterial systolic pressure is 34 mmHg. Left Ventricle E/e' 14 is mildly elevated. Definity contrast administered improved wall motion interpretation. Left ventricular chamber dimension is normal. Left ventricular systolic function is normal, estimated at 60-65%. There is mildly increased left ventricular wall thickness. The left ventricular diastolic function is grade I diastolic dysfunction. Right Ventricle Right ventricular chamber dimension is normal. Right ventricular systolic function is normal. Left Atria Left atrial chamber dimension is normal. Right Atria Right atrial chamber dimension is normal. Atrial Septum Agitated saline injection with and without valsalva maneuver opacified right side cardiac chambers without obvious shunt to left side cardiac chambers. Intact interatrial septum visualized by 2D and agitated saline imaging. Aortic Valve The aortic valve is not well visualized. Cannot determine number of aortic valve leaflets. There is no aortic valve stenosis. There is no aortic valve regurgitation. Pulmonic Valve There is no pulmonic regurgitation. Mitral Valve There is no mitral valve stenosis. There is trace mitral valve regurgitation. Tricuspid Valve There is no tricuspid valve regurgitation. No pulmonary hypertension, estimated pulmonary arterial systolic pressure is 34 mmHg. Pericardium/Pleural There is no pericardial effusion. Inferior Vena Cava Normal inferior vena cava with >50% collapse upon inspiration consistent with normal right atrial pressure, 5 mmHg. Aorta The aortic root size at the sinus of Valsalva is normal. Left Ventricular Outflow Tract Name Value Normal LVOT 2D
[2022-12-07] MEDS: methylPREDNISolone SOD SUCC 40 MG VIAL IV PUSH ×3 (03:47→15:45)
[2022-12-07] MEDS: IPRATROPIUM BR 0.02% INH SOLN 0.5 MG/2.5 ML VIAL INHALATION ×3 (04:27→10:59)
[2022-12-07] MEDS: ALBUTEROL SULFATE NEB 2.5 MG/3 ML INH INHALATION ×3 (04:27→10:59)
[2022-12-07 05:02] LABS: Basophils Percent Auto 0.1 % (0.2-1.2); Hematocrit 39.2 % (42.0-52.0); Immature Granulocyte Absolute 0.22 K/mm3 (0.00-0.031); Lymphocytes Absolute Auto 1.29 K/mm3 (0.9-3.2); Lymphocytes Percent Auto 5.8 % (18.3-44.2); Mean Corpuscular HGB Conc 33.2 g/dl (32-36); Mean Corpuscular Hemoglobin 29.7 pg (26-34); Mean Corpuscular Volume 89.5 fl (80-100); Mean Platelet Volume 11.3 fl (7.4-10.4); Monocytes Absolute Auto 0.6 K/mm3 (0.1-0.6); Monocytes Percent Auto 2.7 % (2.6-8.5); Neutrophils Absolute Auto 20.3 K/mm3 (1.3-6.7); Neutrophils Percent Auto 90.4 % (45.5-73.1); Platelet Count Result 318 k/mm3 (150-375); Red Blood Count 4.38 M/mm3 (4.6-6.20); White Blood Count 22.4 K/mm3 (4.5-10.0)
[2022-12-07 05:25] LABS: Alanine Aminotransferase 41 U/L (6-50); Albumin Level 4.7 g/dL (3.5-5.1); Alkaline Phosphatase 69 U/L (38-126); Anion Gap 12 mmol/L (8-16); Aspartate Amino Transferase 29 U/L (17-59); Bilirubin,Total 0.6 mg/dL (0.2-1.3); Blood Urea Nitrogen 25 mg/dL (9-20); Carbon Dioxide 22 mmol/L (22-30); Chloride 103 mmol/L (98-107); Estimated CRCL calculation 108 ml/min; Estimated Glomerular Filt Rate > 60; Glucose 140 mg/dL (65-110); Potassium 4.6 mmol/L (3.4-5.0); Sodium 137 mmol/L (137-145)
[2022-12-07] MEDS: WATER FOR IRRIGATION, STERILE 1,000 ML BOTTLE 1000 ML (05:56)
[2022-12-07] MEDS: diphenhydrAMINE HCl CAP 25 MG CAPSULE 50 MG PO (07:17)
[2022-12-07 08:06] LABS: Glucose Point of Care 174 mg/dl (65-105)
[2022-12-07] MEDS: ATORVASTATIN 40 MG TABLET PO (08:56)
[2022-12-07] MEDS: RIVAROXABAN 20 MG TABLET PO (08:56)
[2022-12-07] MEDS: FLUTICASONE PROPIONATE 0.05% NA SPR 16 GM BTL (*BKC) 1 SPRAY NASAL (08:56)
[2022-12-07] MEDS: METOPROLOL TARTRATE 25 MG TABLET PO (08:57)
[2022-12-07] MEDS: lisinopriL 10 MG TABLET PO (08:57)
[2022-12-07] MEDS: amLODIPine BESYLATE 5 MG TABLET 10 MG PO (08:59)
[2022-12-07 09:46] LABS: CRP 0.7 mg/dL (<1.0)
[2022-12-07 10:00] LABS: Procalcitonin 0.1 ng/mL
--- NOTE | 2022-12-07 11:01 | P.DS_ITS ---
DS: Admitting Diagnosis Discharge Date 12/07/22 Admitting Diagnosis COPD exacerbation DS: Discharge Diagnosis Discharge Diagnosis (1) Acute exacerbation of chronic obstructive pulmonary disease: Code(s): J44.1 - Chronic obstructive pulmonary disease with (acute) exacerbation Status: Acute Assessment and Plan: Patient presented to the ED on 12/05/2022 with reports shortness of breath, increased cough with sputum changes, and increased wheezes * Admits to smoking 2ppd * Neb treatments * Patient started on azithromycin and Rocephin and eventually transition to p.o. azithromycin for a total of 7 days. * Solumedrol 40mg IV Q6H transition to oral prednisone for a total of 5 days. * Patient feeling much better and has requested to be discharged very adamant about. * Discussed smoking cessation with the patient. (2) Community acquired pneumonia: Qualifiers: Laterality: unspecified laterality Qualified Code(s): J18.9 - Pneumonia, unspecified organism Code(s): J18.9 - Pneumonia, unspecified organism Status: Acute Assessment and Plan: * Chest xray appears to have an opacity/infiltrate * Rocephin and Zithromax. CTA did not reveal any evidence of pneumonia. Patient continued on azithromycin for a total of 7 days. * WBC decreased after treatment and then increased. Increased likely due to steroids on board. Patient no longer having symptoms. * Solumedrol 40mg Q6H On admission and than transitioned to oral prednisone for total of 5 days * Sputum culture pending. (3) Tobacco dependence: Code(s): F17.200 - Nicotine dependence, unspecified, uncomplicated Status: Acute Assessment and Plan: * 2 packs a day to 1-2 cigarettes a day * Nicotine patch and gum as needed * Education given (4) Hypertension: Code(s): I10 - Essential (primary) hypertension Status: Acute Assessment and Plan: * Continue home amlodipine, lisinopril * adjust therapy as indicated (5) Pancreatitis: Code(s): K85.90 - Acute pancreatitis without necrosis or infection, unspecified Status: Acute Assessment and Plan: * Lipase is 891 * Patient given normal saline. * Patient not having any symptoms of pancreatitis. (6) Diabetes: Code(s): E11.9 - Type 2 diabetes mellitus without complications Status: Acute Assessment and Plan: * Continue home metformin * Accu Cheks AC/HS * A1c 5.5 * hypoglycemia protocol (7) Tachycardia with hypertension: Code(s): R00.0 - Tachycardia, unspecified; I10 - Essential (primary) hypertension Status: Acute Assessment and Plan: * tele monitor * Switch albuterol to Xopenex * D-dimer slightly elevated at 0.62 * Could also be related to CHF. Patient started on metoprolol 25 mg b.i.d.. * BNP 678. * Venous doppler Negative for DVT. * Echo ordered for the am * CTA negative for PE. (8) Congestive heart failure: Code(s): I50.9 - Heart failure, unspecified Status: Acute Assessment and Plan: * Patient stated that he was recently diagnosed with heart failure * BNP is 678 * Echo ordered for in the am * Most likely chronic diastolic heart failure not in acute exacerbation * Trend urine output * Trend d
--- NOTE | 2022-12-07 11:01 | PM.DS ---
DS: Admitting Diagnosis Discharge Date 12/07/22 Admitting Diagnosis COPD exacerbation DS: Discharge Diagnosis Discharge Diagnosis (1) Acute exacerbation of chronic obstructive pulmonary disease: Code(s): J44.1 - Chronic obstructive pulmonary disease with (acute) exacerbation Status: Acute Assessment and Plan: Patient presented to the ED on 12/05/2022 with reports shortness of breath, increased cough with sputum changes, and increased wheezes Admits to smoking 2ppd Neb treatments Patient started on azithromycin and Rocephin and eventually transition to p.o. azithromycin for a total of 7 days. Solumedrol 40mg IV Q6H transition to oral prednisone for a total of 5 days. Patient feeling much better and has requested to be discharged very adamant about. Discussed smoking cessation with the patient. (2) Community acquired pneumonia: Qualifiers: Laterality: unspecified laterality Qualified Code(s): J18.9 - Pneumonia, unspecified organism Code(s): J18.9 - Pneumonia, unspecified organism Status: Acute Assessment and Plan: Chest xray appears to have an opacity/infiltrate Rocephin and Zithromax. CTA did not reveal any evidence of pneumonia. Patient continued on azithromycin for a total of 7 days. WBC decreased after treatment and then increased. Increased likely due to steroids on board. Patient no longer having symptoms. Solumedrol 40mg Q6H On admission and than transitioned to oral prednisone for total of 5 days Sputum culture pending. (3) Tobacco dependence: Code(s): F17.200 - Nicotine dependence, unspecified, uncomplicated Status: Acute Assessment and Plan: 2 packs a day to 1-2 cigarettes a day Nicotine patch and gum as needed Education given (4) Hypertension: Code(s): I10 - Essential (primary) hypertension Status: Acute Assessment and Plan: Continue home amlodipine, lisinopril adjust therapy as indicated (5) Pancreatitis: Code(s): K85.90 - Acute pancreatitis without necrosis or infection, unspecified Status: Acute Assessment and Plan: Lipase is 891 Patient given normal saline. Patient not having any symptoms of pancreatitis. (6) Diabetes: Code(s): E11.9 - Type 2 diabetes mellitus without complications Status: Acute Assessment and Plan: Continue home metformin Accu Cheks AC/HS A1c 5.5 hypoglycemia protocol (7) Tachycardia with hypertension: Code(s): R00.0 - Tachycardia, unspecified; I10 - Essential (primary) hypertension Status: Acute Assessment and Plan: tele monitor Switch albuterol to Xopenex D-dimer slightly elevated at 0.62 Could also be related to CHF. Patient started on metoprolol 25 mg b.i.d.. BNP 678. Venous doppler Negative for DVT. Echo ordered for the am CTA negative for PE. (8) Congestive heart failure: Code(s): I50.9 - Heart failure, unspecified Status: Acute Assessment and Plan: Patient stated that he was recently diagnosed with heart failure BNP is 678 Echo ordered for in the am Most likely chronic diastolic heart failure not in acute exacerbation Trend urine output Trend daily weights Add 25mg PO metoprolol DS: Summary Hospital Course Reason for hospitalization: COPD exacerbation Hospital Course: This is a 42-year-old male the presented to the ED on 12/05/2022 with complaints of chest pain and shortness of breath. Patient has a history of 2 PEs, hypertension, hyperlipidemia, congestive heart failure, COPD, KIM and tobacco dependence. Patient takes Xarelto at home due to history of pulmonary embolisms. Patient wear CPAP at night that was continued in the hospital. On presentation to the hospital patient denied fevers, nausea, vomiting, diarrhea and abdominal pain. P
[2022-12-07 12:14] LABS: Glucose Point of Care 180 mg/dl (65-105)
--- NOTE | 2022-12-07 15:39 | P.PNIM_ITS ---
Progress Note: A&P Assessment and Plan (1) Acute exacerbation of chronic obstructive pulmonary disease: Code(s): J44.1 - Chronic obstructive pulmonary disease with (acute) exacerbation Status: Acute Assessment and Plan: Patient presented to the ED on 12/05/2022 with reports shortness of breath, increased cough with sputum changes, and increased wheezes * Admits to smoking 2ppd * Neb treatments * Patient started on azithromycin and Rocephin and eventually transition to p.o. azithromycin for a total of 7 days. * Solumedrol 40mg IV Q6H transition to oral prednisone for a total of 5 days. * Patient feeling much better and has requested to be discharged very adamant about. * Discussed smoking cessation with the patient. (2) Community acquired pneumonia: Qualifiers: Laterality: unspecified laterality Qualified Code(s): J18.9 - Pneumonia, unspecified organism Code(s): J18.9 - Pneumonia, unspecified organism Status: Acute Assessment and Plan: * Chest xray appears to have an opacity/infiltrate * Rocephin and Zithromax. CTA did not reveal any evidence of pneumonia. Patient continued on azithromycin for a total of 7 days. * WBC decreased after treatment and then increased. Increased likely due to steroids on board. Patient no longer having symptoms. * Solumedrol 40mg Q6H On admission and than transitioned to oral prednisone for total of 5 days * Sputum culture pending. (3) Tobacco dependence: Code(s): F17.200 - Nicotine dependence, unspecified, uncomplicated Status: Acute Assessment and Plan: * 2 packs a day to 1-2 cigarettes a day * Nicotine patch and gum as needed * Education given (4) Hypertension: Code(s): I10 - Essential (primary) hypertension Status: Acute Assessment and Plan: * Continue home amlodipine, lisinopril * adjust therapy as indicated (5) Pancreatitis: Code(s): K85.90 - Acute pancreatitis without necrosis or infection, unspecified Status: Acute Assessment and Plan: * Lipase is 891 * Patient given normal saline. * Patient not having any symptoms of pancreatitis. (6) Diabetes: Code(s): E11.9 - Type 2 diabetes mellitus without complications Status: Acute Assessment and Plan: * Continue home metformin * Accu Cheks AC/HS * A1c 5.5 * hypoglycemia protocol (7) Tachycardia with hypertension: Code(s): R00.0 - Tachycardia, unspecified; I10 - Essential (primary) hypertension Status: Acute Assessment and Plan: * tele monitor * Switch albuterol to Xopenex * D-dimer slightly elevated at 0.62 * Could also be related to CHF. Patient started on metoprolol 25 mg b.i.d.. * BNP 678. * Venous doppler Negative for DVT. * Echo ordered * CTA negative for PE. (8) Congestive heart failure: Code(s): I50.9 - Heart failure, unspecified Status: Acute Assessment and Plan: * Patient stated that he was recently diagnosed with heart failure * BNP is 678 * Echo ordered * Most likely chronic diastolic heart failure not in acute exacerbation * Trend urine output * Trend daily weights * Add 25mg PO metoprolol Time Spent With Patient Time with patient: 25 - 35 mi
--- NOTE | 2022-12-07 15:39 | PM.IMPN ---
Progress Note: A&P Assessment and Plan (1) Acute exacerbation of chronic obstructive pulmonary disease: Code(s): J44.1 - Chronic obstructive pulmonary disease with (acute) exacerbation Status: Acute Assessment and Plan: Patient presented to the ED on 12/05/2022 with reports shortness of breath, increased cough with sputum changes, and increased wheezes Admits to smoking 2ppd Neb treatments Patient started on azithromycin and Rocephin and eventually transition to p.o. azithromycin for a total of 7 days. Solumedrol 40mg IV Q6H transition to oral prednisone for a total of 5 days. Patient feeling much better and has requested to be discharged very adamant about. Discussed smoking cessation with the patient. (2) Community acquired pneumonia: Qualifiers: Laterality: unspecified laterality Qualified Code(s): J18.9 - Pneumonia, unspecified organism Code(s): J18.9 - Pneumonia, unspecified organism Status: Acute Assessment and Plan: Chest xray appears to have an opacity/infiltrate Rocephin and Zithromax. CTA did not reveal any evidence of pneumonia. Patient continued on azithromycin for a total of 7 days. WBC decreased after treatment and then increased. Increased likely due to steroids on board. Patient no longer having symptoms. Solumedrol 40mg Q6H On admission and than transitioned to oral prednisone for total of 5 days Sputum culture pending. (3) Tobacco dependence: Code(s): F17.200 - Nicotine dependence, unspecified, uncomplicated Status: Acute Assessment and Plan: 2 packs a day to 1-2 cigarettes a day Nicotine patch and gum as needed Education given (4) Hypertension: Code(s): I10 - Essential (primary) hypertension Status: Acute Assessment and Plan: Continue home amlodipine, lisinopril adjust therapy as indicated (5) Pancreatitis: Code(s): K85.90 - Acute pancreatitis without necrosis or infection, unspecified Status: Acute Assessment and Plan: Lipase is 891 Patient given normal saline. Patient not having any symptoms of pancreatitis. (6) Diabetes: Code(s): E11.9 - Type 2 diabetes mellitus without complications Status: Acute Assessment and Plan: Continue home metformin Accu Cheks AC/HS A1c 5.5 hypoglycemia protocol (7) Tachycardia with hypertension: Code(s): R00.0 - Tachycardia, unspecified; I10 - Essential (primary) hypertension Status: Acute Assessment and Plan: tele monitor Switch albuterol to Xopenex D-dimer slightly elevated at 0.62 Could also be related to CHF. Patient started on metoprolol 25 mg b.i.d.. BNP 678. Venous doppler Negative for DVT. Echo ordered CTA negative for PE. (8) Congestive heart failure: Code(s): I50.9 - Heart failure, unspecified Status: Acute Assessment and Plan: Patient stated that he was recently diagnosed with heart failure BNP is 678 Echo ordered Most likely chronic diastolic heart failure not in acute exacerbation Trend urine output Trend daily weights Add 25mg PO metoprolol Time Spent With Patient Time with patient: 25 - 35 minutes Subjective Date/time seen: 12/07/22 15:39 Interval history: patient doing well today with no complaints. Patient denies shortness of breath, difficulty breathing, chest pain, fever, nausea, vomiting and lower extremity swelling. Patient very urine adamant that he would like to be discharged. Awaiting echo patient may be discharged. Review of Systems Review of Systems: All systems reviewed & are unremarkable except as noted in HPI and below Exam Narrative: GENERAL: Comfortable, no acute distress HENMT: moist mucous membranes EYES: EOM intact b/l NECK: no lymphadenopathy RESPIRATORY: Distant breath sounds. N
[2022-12-07] MEDS: PERFLUTREN LIPID MICROSPHERES 1.5 ML VIAL DILUTED TO 10 ML TOTAL VOLUME IV PUSH (16:20)
[2022-12-07] MEDS: PERFLUTREN LIPID MICROSPHERES 1.5 ML VIAL DILUTED TO 10 ML TOTAL VOLUME (16:20)
== END 2022-12-07 17:00 | disposition home or self-care (01) | DRG 190 ==
LOC: ANHED 12-06 00:58 → ANH2MED 12-06 01:48
PROVIDERS: Emergency Medicine; Nurse Practitioner; Admitting Provider Internal Medicine; Emergency Provider Physician Assistant; PCP Internal Medicine; Visit Provider Internal Medicine Critical Care Medicine
DX: J43.9 Emphysema, unspecified (principal); J18.9 Pneumonia, unspecified organism; I50.32 Chronic diastolic (congestive) heart failure; Z68.41 Body mass index [BMI] 40.0-44.9, adult; E11.9 Type 2 diabetes mellitus without complications; I11.0 Hypertensive heart disease with heart failure; E78.5 Hyperlipidemia, unspecified; G47.33 Obstructive sleep apnea (adult) (pediatric); E66.9 Obesity, unspecified; Z20.822 Contact with and (suspected) exposure to COVID-19; Z91.041 Radiographic dye allergy status; F43.10 Post-traumatic stress disorder, unspecified; F17.210 Nicotine dependence, cigarettes, uncomplicated; Z79.84 Long term (current) use of oral hypoglycemic drugs; Z79.899 Other long term (current) drug therapy
CPT/HCPCS: 36415; 71045; 71275; 80053; 81001; 82948; 83036; 83690; 83735; 83880; 84145; 84484; 85025; 85380; 85610; 85730; 86140; 87070; 87205; 87636; 93005; 93970; 94640; 96361; 96365; 96367; 96375; 99285; A9270; C8929; G0378; J0456; J0696; J1940; J2920; J2930; J3475; J7030; Q9957; Q9967

== ENCOUNTER 2022-12-23 23:59 | Observation (INO) | payer MEDICARE, MEDICAID, SELFPAY ==
--- NOTE | ~2022-12-23 | XR_ITS ---
Portable chest x-ray Comparison: 12/05/2022 Clinical History: Chest pain Findings: Lungs are clear, without focal consolidation or pleural effusion. Cardiomediastinal silho uette is stable. Bones and soft tissues are unremarkable. Impression: Normal chest. Reviewed, dictated and finalized at [facility]. KISS SETTER Impression: Normal chest.
[2022-12-24] VITALS (62 sets, daily range): BP systolic 143–189; BP diastolic 92–126; PULSE 88–117; RESP 15–247; TEMP 36.6–36.7; O2SAT 96–100
--- NOTE | 2022-12-24 00:07 | ECG_ITS ---
Measurements Intervals [place] Rate: 106 P: -10 NE: 177 QRS: 15 QRSD: 84 T: 179 QT: 328 QTc: 436 Interpretive Statements SINUS TACHYCARDIA BORDERLINE ST-T WAVE ABNORMALITY- DIFFUSE LEADS BASELINE ARTIFACT- I, II, III, AVR, AVF ABNORMAL ECG COMPARED TO ECG 12/05/2022 21:26:45 ST-T WAVE ABNORMALITY CHANGES Electronically Signed On 12-24-2022 6:35:43 MANAGEMENT PROFESSIONAL by Saurabh Torres D.O.
--- NOTE | 2022-12-24 00:16 | ED.CHESTPAIN ---
HPI - Chest Pain General Chief Complaint: Chest Pain Stated Complaint: chest pain Time Seen by Provider: 12/24/22 00:13 Source: RN notes reviewed History of Present Illness HPI narrative: Patient presents emergency department from home via EMS for chest pain. Patient states that pain began approximately 7 PM this evening while he was watching TV the pain is located left side the chest and does not radiate. Described as sharp and stabbing in nature. Associate with mild shortness of breath. Patient states he does have a history of CHF but no history of coronary artery disease. States he did take all of his medications today and did take his blood thinner this evening. He states that he does smoke cigarettes but denies any other drug use. Patient states that he was given nitro by EMS with improvement of his chest pain patient was given nitroglycerin spray as well as aspirin 325 mg by EMS Related Data Home Medications Medication Instructions Recorded Confirmed amlodipine 10 mg tablet 10 mg PO DAILY 12/06/22 12/06/22 atorvastatin 40 mg tablet 40 mg PO DAILY 12/06/22 12/06/22 fluticasone furoate 200 1 inh inhalation Q4-5H PRN 12/06/22 12/06/22 mcg-vilanterol 25 mcg/dose Shortness Of Breath inhalation powder (Breo Ellipta) fluticasone propionate 50 1 spray intranasal QAM 12/06/22 12/06/22 mcg/actuation nasal spray,suspension lisinopril 10 mg tablet 10 mg PO DAILY 12/06/22 12/06/22 metformin 1,000 mg tablet 1,000 mg PO DAILY 12/06/22 12/06/22 rivaroxaban 20 mg tablet (Xarelto) 20 mg PO DAILY 12/06/22 12/06/22 Allergies Allergy/AdvReac Type Severity Reaction Status Date / Time iodine Allergy Unknown Verified 07/06/16 14:14 Contrast Media Allergy Unknown Uncoded 03/31/16 21:54 Review of Systems Review of Systems: Gen.: Denies fevers or chills ENT: Denies congestion Respiratory: Reports shortness of breath CV: Reports chest pain GI: Denies abdominal pain nausea, emesis or diarrhea Musculoskeletal: Denies back pain or muscle pain Neuro: Denies numbness, tingling, weakness or focal weakness Skin: Denies rash Except as documented, all other systems reviewed and negative [facility] Past Medical History Medical History (Updated 12/24/22 @ 02:35 by Romero King DO) Benign essential hypertension Bipolar 1 disorder, depressed COPD with asthma Personal history of pulmonary embolism PTSD (post-traumatic stress disorder) Family History Family History Other Hypertension Social History Social History Smoking packs per day: 0.10 Smoking cigarettes per day: 2.0 Years smoked: 31 Smoking pack-years: 3.10 Smoking status: Current every day smoker Alcohol intake: current Drinks per week: 1 Substance use: never Lack of Transportation: No Lack of Food: Never True Current Housing: I Have Housing Concerned About Future Housing: No Difficulty Paying Gas/Electric Bills: No Difficulty Paying for Meds: No Currently Unemployed: No Education: Grade School Difficulty w/ Childcare or Family Care: No Spiritual care concerns: No Exam Narrative: APPEARANCE: No acute distress, nontoxic, resting in bed EYES: EOMI HEENT: Normocephalic, atraumatic, OMM RESPIRATORY: No respiratory distress Clear to auscultation bilaterally with no rhonchi wheezing or rales. CARDIOVASCULAR: Tachycardic and regular without murmurs rubs or gallops. ABDOMINAL: Soft, nontender, nondistended, no rebound or guarding MUSCULOSKELETAl: Moves all extremities. No clubbing, cyanosis or edema. NEURO: Awake and alert. Following commands, speech normal, no focal deficits SKIN:: Warm, dry. No rashes lesions or abrasions PSYCHIATRIC: Normal affect/mood, Course Course Emergency Course: I reviewed the patient's previous records. The patient had just been here and discharged on metoprolol 25 mg twice a day. I disc
[2022-12-24 00:30] LABS: INR 1.6
[2022-12-24 00:31] LABS: Partial Thromboplastin Time 46.6 SECONDS (22.3-36.8)
[2022-12-24 00:32] LABS: Alanine Aminotransferase 38 U/L (6-50); Albumin Level 4.6 g/dL (3.5-5.1); Alkaline Phosphatase 82 U/L (38-126); Anion Gap 10 mmol/L (8-16); Aspartate Amino Transferase 20 U/L (17-59); Bilirubin,Total 0.5 mg/dL (0.2-1.3); Blood Urea Nitrogen 15 mg/dL (9-20); Calcium 9.5 mg/dL (8.4-10.2); Carbon Dioxide 26 mmol/L (22-30); Chloride 101 mmol/L (98-107); Estimated CRCL calculation 102 ml/min; Estimated Glomerular Filt Rate > 60; Glucose 119 mg/dL (65-110); Lipase 552 U/L (23-300); Potassium 3.2 mmol/L (3.4-5.0); Sodium 137 mmol/L (137-145)
[2022-12-24 00:32] LABS: Basophils Absolute Auto 0.1 K/mm3 (0.0-0.1); Basophils Percent Auto 0.7 % (0.2-1.2); Eosinophils Absolute Auto 0.3 K/mm3 (0-0.3); Hematocrit 40.5 % (42.0-52.0); Hemoglobin 13.5 g/dL (14.0-18.0); Immature Granulocyte Absolute 0.13 K/mm3 (0.00-0.031); Immature Granulocyte Percent A 0.9 % (0-0.5); Lymphocytes Absolute Auto 2.73 K/mm3 (0.9-3.2); Lymphocytes Percent Auto 19.8 % (18.3-44.2); Mean Corpuscular HGB Conc 33.3 g/dl (32-36); Mean Corpuscular Hemoglobin 29.5 pg (26-34); Mean Corpuscular Volume 88.4 fl (80-100); Mean Platelet Volume 10.5 fl (7.4-10.4); Neutrophils Absolute Auto 9.6 K/mm3 (1.3-6.7); Neutrophils Percent Auto 69.6 % (45.5-73.1); Platelet Count Result 276 k/mm3 (150-375); Red Blood Count 4.58 M/mm3 (4.6-6.20); Red Cell Distribution Width 15.4 % (11.5-14.5); White Blood Count 13.8 K/mm3 (4.5-10.0)
[2022-12-24 00:44] LABS: Troponin I < 0.012 ng/mL (0.000-0.034)
[2022-12-24 00:46] LABS: NT Pro B Type Natriuretic Pept 1670 pg/mL (19.9-100)
[2022-12-24] MEDS: METOPROLOL TARTRATE 25 MG TABLET PO ×2 (00:52→09:25)
--- NOTE | 2022-12-24 01:26 | PM.IMHP ---
H&P: HPI History of Present Illness Date/Time: 12/24/22 01:26 Chief Complaint: 42 years old male with past medical history of CHF COPD pulmonary embolism hyperlipidemia hypertension was recently discharged from the hospital words treated for acute pancreatitis community-acquired pneumonia COPD exacerbation CHF exacerbation today patient developed episode of chest pain on the left side sharp no radiation no aggravating or relieving factor associated with mild shortness of breath at the ER patient was found blood pressure BNP was significantly elevated cardiology was consulted patient will be admitted to the hospital for evaluation and treatment of chest pain CHF exacerbation Review of Systems Review of Systems: 12 system review was done was negative [facility] Past Medical History Medical History (Updated 12/24/22 @ 02:35 by Romero King DO) Benign essential hypertension Bipolar 1 disorder, depressed COPD with asthma Personal history of pulmonary embolism PTSD (post-traumatic stress disorder) Family History Family History Other Hypertension Social History Social History Smoking packs per day: 0.10 Smoking cigarettes per day: 2.0 Years smoked: 31 Smoking pack-years: 3.10 Smoking status: Current every day smoker Alcohol intake: current Drinks per week: 1 Substance use: never Lack of Transportation: No Lack of Food: Never True Current Housing: I Have Housing Concerned About Future Housing: No Difficulty Paying Gas/Electric Bills: No Difficulty Paying for Meds: No Currently Unemployed: No Education: Grade School Difficulty w/ Childcare or Family Care: No Spiritual care concerns: No Meds Home Medications and Allergies Home Medications Medication Instructions Recorded Confirmed Type amlodipine 10 mg tablet 10 mg PO DAILY 12/06/22 12/06/22 History atorvastatin 40 mg tablet 40 mg PO DAILY 12/06/22 12/06/22 History fluticasone furoate 200 1 inh inhalation Q4-5H PRN 12/06/22 12/06/22 History mcg-vilanterol 25 mcg/dose Shortness Of Breath inhalation powder (Breo Ellipta) fluticasone propionate 50 1 spray intranasal QAM 12/06/22 12/06/22 History mcg/actuation nasal spray,suspension lisinopril 10 mg tablet 10 mg PO DAILY 12/06/22 12/06/22 History metformin 1,000 mg tablet 1,000 mg PO DAILY 12/06/22 12/06/22 History rivaroxaban 20 mg tablet (Xarelto) 20 mg PO DAILY 12/06/22 12/06/22 History azithromycin 250 mg tablet 250 mg PO DAILY 6 days #6 tabs 12/07/22 Rx metoprolol tartrate 25 mg tablet 25 mg PO Q12HR #3 tabs 12/07/22 Rx prednisone 20 mg tablet 40 mg PO DAILY #8 tabs 12/07/22 Rx Allergies Allergy/AdvReac Type Severity Reaction Status Date / Time iodine Allergy Unknown Verified 07/06/16 14:14 Contrast Media Allergy Unknown Uncoded 03/31/16 21:54 Vital Signs Vital Signs - 24 hr 12/24/22 00:00 12/24/22 00:52 12/24/22 00:06 Temperature 98.1 F Pulse Rate 115 H 109 H 115 H Respiratory Rate 21 H 21 H Blood Pressure 178/121 H Pulse Oximetry 99 Oxygen Delivery Room Air 12/24/22 00:10 12/24/22 00:15 12/24/22 00:16 Temperature Pulse Rate 112 H 117 H 111 H Respiratory Rate 20 17 20 Blood Pressure 178/121 H 188/126 H Pulse Oximetry 99 99 99 Oxygen Delivery 12/24/22 00:30 12/24/22 00:32 12/24/22 00:45 Temperature Pulse Rate 106 H 106 H 104 H Respiratory Rate 19 15 18 Blood Pressure 183/121 H Pulse Oximetry 99 98 98 Oxygen Delivery 12/24/22 00:47 Temperature Pulse Rate 114 H Respiratory Rate 20 Blood Pressure 189/111 H Pulse Oximetry 99 Oxygen Delivery Exam Narrative: GENERAL: Well appearing, well-nourished, non-toxic, in no acute distress. HEAD: Normocephalic, atraumatic. NECK: Supple. No adenopathy, no masses. RESPIRATORY Decreased air entry bilateral bilateral crackles. CARDIOVASCUL
[2022-12-24] MEDS: POTASSIUM CHLORIDE 20 MEQ TABLET PO (01:59)
[2022-12-24 02:37] LABS: Amphetamine Screen Urine Negative (Negative); Barbiturate Screen Urine Negative (Negative); Benzodiazepines Screen Urine Negative (Negative); Cannabinoid Screen Urine Negative (Negative); Cocaine Screen Urine Negative (Negative); Methadone Screen Urine Negative (Negative); Opiate Screen Urine Negative (Negative); Phencyclidine Screen Urine Negative (Negative)
[2022-12-24 04:24] LABS: Troponin I < 0.012 ng/mL (0.000-0.034)
[2022-12-24] MEDS: hydrALAZINE HCL 20 MG/ML VIAL 10 MG IV PUSH ×2 (04:55→06:17)
[2022-12-24] MEDS: ASPIRIN 325 MG ENTERIC TABLET PO (05:13)
[2022-12-24] MEDS: NITROGLYCERIN SL 0.4 MG TABLET SUBLINGUAL (06:17)
[2022-12-24 06:51] LABS: Troponin I 0.014 ng/mL (0.000-0.034)
[2022-12-24 06:53] LABS: Influenza A QL RT-PCR Negative (Negative); Influenza B QL RT-PCR Negative (Negative); SARS-CoV-2 RNA PCR Negative
[2022-12-24 07:24] LABS: Basophils Absolute Auto 0.1 K/mm3 (0.0-0.1); Basophils Percent Auto 0.8 % (0.2-1.2); Eosinophils Absolute Auto 0.3 K/mm3 (0-0.3); Hematocrit 42.1 % (42.0-52.0); Hemoglobin 13.8 g/dL (14.0-18.0); Immature Granulocyte Absolute 0.11 K/mm3 (0.00-0.031); Immature Granulocyte Percent A 0.8 % (0-0.5); Lymphocytes Absolute Auto 2.66 K/mm3 (0.9-3.2); Lymphocytes Percent Auto 18.3 % (18.3-44.2); Mean Corpuscular HGB Conc 32.8 g/dl (32-36); Mean Corpuscular Hemoglobin 29.4 pg (26-34); Mean Corpuscular Volume 89.8 fl (80-100); Mean Platelet Volume 10.9 fl (7.4-10.4); Monocytes Absolute Auto 0.9 K/mm3 (0.1-0.6); Monocytes Percent Auto 5.8 % (2.6-8.5); Neutrophils Absolute Auto 10.5 K/mm3 (1.3-6.7); Neutrophils Percent Auto 72.3 % (45.5-73.1); Platelet Count Result 292 k/mm3 (150-375); Red Blood Count 4.69 M/mm3 (4.6-6.20); Red Cell Distribution Width 15.5 % (11.5-14.5); White Blood Count 14.5 K/mm3 (4.5-10.0)
--- NOTE | 2022-12-24 07:27 | PM.IMPN ---
Progress Note: A&P Assessment and Plan (1) Congestive heart failure: Code(s): I50.9 - Heart failure, unspecified Status: Acute Assessment and Plan: most likely acute and of chronic diastolic CHF exacerbation IV diuresis review CBC CMP chest x-ray patient recently had CT scan of the chest negative for PE or pneumonia (2) Tachycardia with hypertension: Code(s): R00.0 - Tachycardia, unspecified; I10 - Essential (primary) hypertension Status: Acute Assessment and Plan: beta-deanne probably related to CHF exacerbation check urine drug screen unlikely a patient has PE patient on oral anticoagulation Uncontrolled hypertension, resume amlodipine 10 mg daily p.o., start hydralazine IV p.r.n. with parameters (3) Diabetes: Code(s): E11.9 - Type 2 diabetes mellitus without complications Status: Acute Assessment and Plan: insulin sliding scale pending home medication reconciliation (4) COPD with asthma: Code(s): J44.9 - Chronic obstructive pulmonary disease, unspecified Status: Acute Assessment and Plan: COPD exacerbation due to acute bacterial bronchitis patient has been having productive cough and worsening dyspnea and possible days patient has leukocytosis, patient has tobacco dependence start Levaquin IV, nebulizer schedule p.r.n., methylprednisolone IV (5) Acute chest pain: Code(s): R07.9 - Chest pain, unspecified Status: Acute Assessment and Plan: patient has chest pain worse with cough, possible pleural chest pain rule out ACS serial cardiac marker ECG probably pleurisy unlikely PE patient is on oral anticoagulation pain control cardiology consult Subjective Date/time seen: 12/24/22 07:27 patient has been having a productive cough with yellow-greenish sputum in past 3 days, and also has short of breath. Patient states his chest pain is worse with a cough and deep breath Exam Narrative: GENERAL: Well appearing, well-nourished, non-toxic, in no acute distress. HEAD: Normocephalic, atraumatic. NECK: Supple. No adenopathy, no masses. RESPIRATORY Decreased air entry bilateral , coarse breath sound bilaterally, scattered wheezing CARDIOVASCULAR: Regular rate and rhythm without murmurs, rubs, or gallops. Peripheral pulses 2+ and equal bilaterally. ABDOMINAL: Soft, nontender, nondistended, no hepatosplenomegaly. Normoactive BS. MUSCULOSKELETAL: bilateral lower extremity edema. SKIN: Warm, dry, normal color. No rashes. NEURO: A&O X3. Speech clear. Cranial nerves II-XII grossly intact. Steady gait. No ataxic movements. PSYCHIATRIC: Appropriate mood and affect. Normal interaction. Objective Data Vital Signs Vital Signs: Vital Signs - 24 hr 12/24/22 00:00 12/24/22 00:52 12/24/22 00:06 Temperature 98.1 F Pulse Rate 115 H 109 H 115 H Respiratory Rate 21 H 21 H Blood Pressure 178/121 H Pulse Oximetry 99 Oxygen Delivery Room Air 12/24/22 00:10 12/24/22 00:15 12/24/22 00:16 Temperature Pulse Rate 112 H 117 H 111 H Respiratory Rate 20 17 20 Blood Pressure 178/121 H 188/126 H Pulse Oximetry 99 99 99 Oxygen Delivery 12/24/22 00:30 12/24/22 00:32 12/24/22 00:45 Temperature Pulse Rate 106 H 106 H 104 H Respiratory Rate 19 15 18 Blood Pressure 183/121 H Pulse Oximetry 99 98 98 Oxygen Delivery 12/24/22 00:47 12/24/22 00:48 12/24/22 01:00 Temperature Pulse Rate 114 H 112 H 106 H Respiratory Rate 20 30 H 24 H Blood Pressure 189/111 H Pulse Oximetry 99 99 99 Oxygen Delivery 12/24/22 01:02 12/24/22 01:15 12/24/22 01:16 Temperature Pulse Rate 106 H 104 H 104 H Respiratory Rate 26 H 37 H 26 H Blood Pressure 170/114 H 177/107 H Pulse Oximetry 100 Oxygen Delivery 12/24/22 01:30 12/24/22 01:31 12/24/22 01:45 Temperature Pulse Rate 107 H 102 H 102 H Respiratory Rate 30 H 27 H 19 Blood Pressure 178/92 H Pulse Oximetry 100 98 97 Oxygen Delivery
[2022-12-24 07:31] LABS: Alanine Aminotransferase 39 U/L (6-50); Albumin Level 4.6 g/dL (3.5-5.1); Alkaline Phosphatase 90 U/L (38-126); Anion Gap 8 mmol/L (8-16); Aspartate Amino Transferase 21 U/L (17-59); Bilirubin,Total 0.7 mg/dL (0.2-1.3); Blood Urea Nitrogen 15 mg/dL (9-20); Calcium 9.2 mg/dL (8.4-10.2); Carbon Dioxide 28 mmol/L (22-30); Chloride 102 mmol/L (98-107); Estimated CRCL calculation 102 ml/min; Estimated Glomerular Filt Rate > 60; Glucose 103 mg/dL (65-110); Potassium 3.6 mmol/L (3.4-5.0); Sodium 138 mmol/L (137-145)
[2022-12-24 07:42] LABS: Troponin I 0.013 ng/mL (0.000-0.034)
--- NOTE | 2022-12-24 09:23 | PM.DS ---
DS: Admitting Diagnosis Discharge Date 12/24/22 Admitting Diagnosis COPD exacerbation, chest pain, acute but her bronchitis, DS: Discharge Diagnosis Discharge Diagnosis (1) Acute chest pain: Code(s): R07.9 - Chest pain, unspecified Status: Acute (2) COPD with asthma: Code(s): J44.9 - Chronic obstructive pulmonary disease, unspecified Status: Acute (3) Acute exacerbation of chronic obstructive pulmonary disease: Code(s): J44.1 - Chronic obstructive pulmonary disease with (acute) exacerbation Status: Acute DS: Summary Hospital Course Reason for hospitalization: Chest pain, shortness of breath Hospital Course: 42 years old male with past medical history of CHF COPD pulmonary embolism hyperlipidemia hypertension was recently discharged from the hospital words treated for acute pancreatitis community-acquired pneumonia COPD exacerbation CHF exacerbation today patient developed episode of chest pain on the left side sharp no radiation no aggravating or relieving factor associated with mild shortness of breath at the ER patient was found blood pressure BNP was significantly elevated cardiology was consulted patient will be admitted to the hospital for evaluation and treatment of chest pain. During hospitalization, patient was treated for COPD exacerbation and acute bacterial bronchitis. Patient most likely had pleuritic chest pain, possible CHF, patient received furosemide IV. Per nurse report, patient wished to go home AMA. When I arrived , patient left. I provided oral abx. Status at Discharge Cognitive/behavioral status at discharge: stable Time Spent with Patient Time attestation: Total time spent providing and/or coordinating discharge services: DS: Data Data Completed and Pending Labs on day of discharge: Labs from last 24 hours 12/24/22 12/24/22 12/24/22 07:14 07:14 06:16 WBC 14.5 H RBC 4.69 Hgb 13.8 L Hct 42.1 MCV 89.8 MCH 29.4 MCHC 32.8 RDW 15.5 H Plt Count 292 MPV 10.9 H Immature Gran % (Auto) 0.8 H Neut % (Auto) 72.3 Lymph % (Auto) 18.3 [place] % (Auto) 5.8 Eos % (Auto) 2.0 Baso % (Auto) 0.8 Lymph # (Auto) 2.66 [place] # (Auto) 0.9 H Eos # (Auto) 0.3 Baso # (Auto) 0.1 Abs Immat Gran (auto) 0.11 H Absolute Neuts (auto) 10.5 H Absolute Nucleated RBC 0.0 Nucleated RBC % 0.0 PT INR APTT Sodium 138 Potassium 3.6 Chloride 102 Carbon Dioxide 28 Anion Gap 8 BUN 15 Creatinine 0.90 Estim Creat Clear Calc 102 Estimated GFR > 60 Glucose 103 Calcium 9.2 Total Bilirubin 0.7 AST 21 ALT 39 Alkaline Phosphatase 90 Troponin I 0.013 0.014 NT-Pro-B Natriuret Pep Total Protein 7.0 Albumin 4.6 Lipase Urine Opiates Screen Urine Methadone Screen Ur Barbiturates Screen Ur Phencyclidine Scrn Ur Amphetamine Screen U Benzodiazepines Scrn Urine Cocaine Screen U Cannabinoids Screen Influenza A (RT-PCR) Influenza B (RT-PCR) SARS-CoV-2 RNA (RT-PCR) 12/24/22 12/24/22 12/24/22 03:50 02:04 02:03 WBC RBC Hgb Hct MCV MCH MCHC RDW Plt Count MPV Immature Gran % (Auto) Neut % (Auto) Lymph % (Auto) [place] % (Auto) Eos % (Auto) Baso % (Auto) Lymph # (Auto) [place] # (Auto) Eos # (Auto) Baso # (Auto) Abs Immat Gran (auto) Absolute Neuts (auto) Absolute Nucleated RBC Nucleated RBC % PT INR APTT Sodium Potassium Chloride Carbon Dioxide Anion Gap BUN Creatinine Estim Creat Clear Calc Estimated GFR Glucose Calcium Total Bilirubin AST ALT Alkaline Phosphatase Troponin I < 0.012 NT-Pro-B Natriuret Pep Total Protein Albumin Lipase Urine Opiates Screen Negative Urine Methadone Screen Negative Ur Barbiturates Screen Negative Ur Phencyclidine Sc
[2022-12-24] MEDS: PANTOPRAZOLE SODIUM IV 40 MG VIAL IV PUSH (09:24)
[2022-12-24] MEDS: FUROSEMIDE INJ 40 MG/4 ML VIAL IV PUSH (09:24)
[2022-12-24] MEDS: DOXYCYCLINE HYCLATE 100 MG TABLET PO (09:25)
[2022-12-24] MEDS: ATORVASTATIN 40 MG TABLET PO (09:25)
[2022-12-24] MEDS: lisinopriL 10 MG TABLET PO (09:25)
[2022-12-24] MEDS: amLODIPine BESYLATE 5 MG TABLET 10 MG PO (09:25)
[2022-12-24] MEDS: methylPREDNISolone SOD SUCC 125 MG VIAL 60 MG IV PUSH (09:33)
== END 2022-12-24 10:19 | disposition left against medical advice (07) ==
LOC: ANHED 12-24 02:35 → ANHIMU 12-24 08:46
PROVIDERS: Admitting Provider Internal Medicine; Emergency Provider Emergency Medicine; PCP Internal Medicine; Visit Provider Hospitalist
DX: R07.9 Chest pain, unspecified (principal); J44.1 Chronic obstructive pulmonary disease with (acute) exacerbation; I11.9 Hypertensive heart disease without heart failure; R00.0 Tachycardia, unspecified; E11.9 Type 2 diabetes mellitus without complications; J40 Bronchitis, not specified as acute or chronic; F31.9 Bipolar disorder, unspecified; F43.10 Post-traumatic stress disorder, unspecified; E78.5 Hyperlipidemia, unspecified; Z20.822 Contact with and (suspected) exposure to COVID-19; Z86.711 Personal history of pulmonary embolism; R94.31 Abnormal electrocardiogram [ECG] [EKG]; F17.210 Nicotine dependence, cigarettes, uncomplicated; Z79.51 Long term (current) use of inhaled steroids; Z79.84 Long term (current) use of oral hypoglycemic drugs; Z79.01 Long term (current) use of anticoagulants; Z79.52 Long term (current) use of systemic steroids; Z79.899 Other long term (current) drug therapy; Z82.49 Family history of ischemic heart disease and other diseases of the circulatory system
CPT/HCPCS: 36415; 71045; 80053; 80307; 83690; 83880; 84484; 85025; 85610; 85730; 87636; 93005; 96365; 96375; 96376; 99285; A9270; C9113; G0378; G0379; J0360; J1940; J1956; J2930

== ENCOUNTER 2023-01-25 19:56 | Observation (INO) | payer MEDICARE, MEDICAID, SELFPAY ==
--- NOTE | ~2023-01-25 | XR_ITS ---
EXAMINATION: XR chest 2V DATE: 01/25/2023 21:43 INDICATION: Left-sided chest pain TECHNIQUE: PA and lateral views of the chest are obtained. COMPARISON: None available FINDINGS: There are minimal airspace opacities of the lingula and right middle lobe. No pleural effus ion or pneumothorax. The cardiomediastinal silhouette is normal. There is mild thoracic spondylosis. IMPRESSION: 1. Lingular and right middle lobe airspace opacities, consistent with atelectasis versus pneumonia. Reviewed, dictated and finalized at location L. IMPRESSION: 1. Lingular and right middle lobe airspace opacities, consistent with atelectas is versus pneumonia.
--- NOTE | 2023-01-25 19:57 | ECG_ITS ---
Measurements Intervals [place] Rate: 116 P: 15 MD: 161 QRS: -21 QRSD: 86 T: 58 QT: 418 QTc: 581 Interpretive Statements SINUS TACHYCARDIA BORDERLINE LEFT AXIS DEVIATION [QRS AXIS < -20] PATTERN CONSISTENT WITH PULMONARY DISEASE, RVH, OR NORMAL VARIANT POSSIBLE RIGHT VENTRICULAR CONDUCTION DELAY [RSR (QR) IN V1/V2] NONSPECIFIC ST & T-WAVE ABNORMALITY ABNORMAL RHYTHM ECG COMPARED TO ECG 12/24/2022 00:13:43 NO SIGNIFICANT CHANGES Electronically Signed On 01-26-2023 15:55:39 CDT by Vashti Gutierrez M.D.
[2023-01-25 20:36] VITALS: BP 223/151; PULSE 112; RESP 22; TEMP 36.4; O2SAT 98
[2023-01-25 20:40] VITALS: BP 222/135
[2023-01-25 20:47] LABS: Prothrombin Time 12.4 Seconds (11.1-14.7)
[2023-01-25 20:48] LABS: Partial Thromboplastin Time 31.5 SECONDS (22.3-36.8)
[2023-01-25 21:12] LABS: Basophils Absolute Auto 0.1 K/mm3 (0.0-0.1); Basophils Percent Auto 0.8 % (0.2-1.2); Eosinophils Absolute Auto 0.3 K/mm3 (0-0.3); Eosinophils Percent Auto 2.2 % (0-4.4); Hematocrit 44.4 % (42.0-52.0); Hemoglobin 14.8 g/dL (14.0-18.0); Immature Granulocyte Absolute 0.15 K/mm3 (0.00-0.031); Lymphocytes Absolute Auto 2.82 K/mm3 (0.9-3.2); Lymphocytes Percent Auto 19.7 % (18.3-44.2); Mean Corpuscular HGB Conc 33.3 g/dl (32-36); Mean Corpuscular Hemoglobin 29.7 pg (26-34); Mean Corpuscular Volume 89.2 fl (80-100); Monocytes Absolute Auto 0.9 K/mm3 (0.1-0.6); Monocytes Percent Auto 6.6 % (2.6-8.5); Neutrophils Percent Auto 69.7 % (45.5-73.1); Platelet Count Result 394 k/mm3 (150-375); Red Blood Count 4.98 M/mm3 (4.6-6.20); Red Cell Distribution Width 15.7 % (11.5-14.5); White Blood Count 14.3 K/mm3 (4.5-10.0)
[2023-01-25 21:22] LABS: Alanine Aminotransferase 40 U/L (6-50); Albumin Level 4.7 g/dL (3.5-5.1); Alkaline Phosphatase 109 U/L (38-126); Anion Gap 10 mmol/L (8-16); Aspartate Amino Transferase 24 U/L (17-59); Bilirubin,Total 0.4 mg/dL (0.2-1.3); Blood Urea Nitrogen 19 mg/dL (9-20); Calcium 9.9 mg/dL (8.4-10.2); Carbon Dioxide 30 mmol/L (22-30); Chloride 97 mmol/L (98-107); Estimated CRCL calculation 102 ml/min; Estimated Glomerular Filt Rate > 60; Glucose 118 mg/dL (65-110); Lipase 245 U/L (23-300); Potassium 3.1 mmol/L (3.4-5.0); Sodium 137 mmol/L (137-145)
[2023-01-25 21:33] LABS: Troponin I 0.024 ng/mL (0.000-0.034)
[2023-01-25 22:44] VITALS: BP 207/130; PULSE 115; RESP 18; TEMP 36.4; O2SAT 99
[2023-01-25 23:27] LABS: Troponin I 0.024 ng/mL (0.000-0.034)
[2023-01-26] VITALS (75 sets, daily range): BP systolic 140–292; BP diastolic 84–147; PULSE 74–116; RESP 12–36; TEMP 36.6–37.2; O2SAT 94–100; BMI 41.6
--- NOTE | 2023-01-26 00:48 | PC.NURSE ---
patient approached the triage desk reporting increased chest pain, ekg repeated and shown to doctor; patient taken to treatment room
[2023-01-26] MEDS: ASPIRIN 81 MG CHEWABLE TABLET 324 MG PO (00:57)
[2023-01-26] MEDS: NITROGLYCERIN SL 0.4 MG TABLET SUBLINGUAL (01:26)
[2023-01-26] MEDS: MORPHINE SULFATE (*CRX) 4 MG/ML INJ IV PUSH ×2 (01:27→02:51)
[2023-01-26] MEDS: hydrALAZINE HCL 20 MG/ML VIAL 10 MG IV PUSH ×2 (02:39→05:56)
[2023-01-26 03:29] LABS: Troponin I 0.033 ng/mL (0.000-0.034)
--- NOTE | 2023-01-26 03:52 | ED.GENADULT ---
HPI - General Adult General Chief complaint: Chest Pain Stated complaint: Chest pain, HTN Time Seen by Provider: 01/26/23 00:51 History of Present Illness HPI narrative: Patient is a 42-year-old gentleman who presents the emergency department with chief complaint of chest pain. Patient reports for the last couple days he has been having discomfort in his chest he also reports that his blood pressure has been elevated. Patient reports that he was recently changed from metoprolol to a new blood pressure medicine that he he was only able to describe by color of the pill. Patient reports the pain has been pretty well constant and reports that its not improved by anything nor is it worsened by anything. Related Data Home Medications Medication Instructions Recorded Confirmed amlodipine 10 mg tablet 10 mg PO DAILY 12/06/22 12/24/22 atorvastatin 40 mg tablet 40 mg PO DAILY 12/06/22 12/24/22 fluticasone furoate 200 1 inh inhalation DAILY 12/06/22 12/24/22 mcg-vilanterol 25 mcg/dose inhalation powder (Breo Ellipta) lisinopril 10 mg tablet 10 mg PO DAILY 12/06/22 12/24/22 metformin 1,000 mg tablet 1,000 mg PO DAILY 12/06/22 12/24/22 rivaroxaban 20 mg tablet (Xarelto) 20 mg PO HS 12/06/22 12/24/22 albuterol 90 mcg/actuation aerosol See Rx Instructions .Route 12/24/22 inhaler .COMPLEX PRN Shortness Of Breath Or Wheezing Allergies Allergy/AdvReac Type Severity Reaction Status Date / Time iodine Allergy Unknown Verified 07/06/16 14:14 Contrast Media Allergy Unknown Uncoded 03/31/16 21:54 Review of Systems Review of Systems: A 10 system review of systems was completed on the patient and is negative except for what is stated in the HPI. Nursing and ancillary documentation was reviewed. [facility] Past Medical History Medical History Benign essential hypertension Bipolar 1 disorder, depressed COPD with asthma Personal history of pulmonary embolism PTSD (post-traumatic stress disorder) Family History Family History Father Congestive heart failure Hypertension Acute myocardial infarction Diabetes mellitus Sibling Congestive heart failure Hypertension Diabetes mellitus Sibling History of blood clots Diabetes mellitus Sibling History of blood clots Diabetes mellitus Mother Chronic obstructive pulmonary disease Diabetes mellitus Sibling Diabetes mellitus Sibling Diabetes mellitus Sibling Diabetes mellitus Sibling Diabetes mellitus Sibling Diabetes mellitus Social History Social History Smoking packs per day: 0.10 Smoking cigarettes per day: 2.0 Years smoked: 31 Smoking pack-years: 3.10 Smoking status: Current every day smoker Alcohol intake: former Drinks per week: 1 Substance use: never Lack of Transportation: No Lack of Food: Never True Current Housing: I Have Housing Concerned About Future Housing: No Difficulty Paying Gas/Electric Bills: No Difficulty Paying for Meds: No Currently Unemployed: No Education: Grade School Difficulty w/ Childcare or Family Care: No Spiritual care concerns: No Exam Narrative: GENERAL: Well-appearing, well-nourished, and in no acute distress. HEAD: Normocephalic, atraumatic. EYES: PERRLA and EOMI. ENT: Nares clear, no rhinorrhea or epistaxis. Mucous membranes moist. NECK: Supple. CHEST: Clear to auscultation. No respiratory distress. HEART: Regular rate and rhythm. No murmur heard. Normal peripheral pulses. ABDOMEN: Soft, nontender, nondistended, normal active bowel sounds. EXTREMITIES: Normal range of motion. No edema. SKIN: Warm, dry, no rash. NEURO: No focal deficits. Alert and oriented x3. PSYCH: Normal mood and affect. Course Vital Signs Vital signs: Vital Signs Temperature 36.4 C 01/25/23 20:36 Pulse Rate
[2023-01-26] MEDS: METOPROLOL TARTRATE 50 MG TAB 25 MG PO (05:16)
--- NOTE | 2023-01-26 05:47 | ADMIMU ---
This patient, Enrike Dhaliwal, was admitted to IMU status, and placed in Intensive Care Unit-9. Patient/family oriented to hospital policies and general routines including ID bracelet, bed and alarms, visiting hours, pain management, procedures, bathroom and other care routines, personal items, smoking policy, room service/diet, and visiting hours. Valuables list has been completed. Information on how to activate the Rapid Response Team has been discussed. Patient/Family are encouraged to report perceived risks to care and to ask questions if they do not understand what they are told or what they should do.
--- NOTE | 2023-01-26 08:58 | PM.IMHP ---
H&P: HPI History of Present Illness Date/Time: 01/26/23 08:58 Chief Complaint: chest pain Narrative: 42-year-old male with history of COPD, hypertension, bipolar disorder, PE and PTSD is presenting with chest pain. He is also noted that he has had significantly elevated blood pressure over the last few days. Patient does admit that his metoprolol was recently discontinued in favor of a different blood pressure medicine today. He states the pain has been constant, it is not associated with shortness of breath. No nausea, vomiting or diarrhea. No fevers or chills. In the ER, troponin was elevated and increased slightly. Chest x-ray and EKG were nonacute. Blood pressure was found to be 223/151. He was given nitroglycerin, morphine and hydralazine. Repeat blood pressure was down to 178/119. Review of Systems Review of Systems: 12 point review of systems was assessed and was negative except as noted in the HPI [facility] Past Medical History Medical History Benign essential hypertension Bipolar 1 disorder, depressed COPD with asthma Personal history of pulmonary embolism PTSD (post-traumatic stress disorder) Family History Family History Father Congestive heart failure Hypertension Acute myocardial infarction Diabetes mellitus Sibling Congestive heart failure Hypertension Diabetes mellitus Sibling History of blood clots Diabetes mellitus Sibling History of blood clots Diabetes mellitus Mother Chronic obstructive pulmonary disease Diabetes mellitus Sibling Diabetes mellitus Sibling Diabetes mellitus Sibling Diabetes mellitus Sibling Diabetes mellitus Sibling Diabetes mellitus Social History Social History Smoking packs per day: 1 Smoking cigarettes per day: 20.0 Years smoked: 30 Smoking pack-years: 30.00 Smoking status: Current every day smoker Tobacco type: cigarettes Alcohol intake: never Drinks per week: 1 Substance use: never Lack of Transportation: No Lack of Food: Never True Current Housing: I Do Not Have Housing Concerned About Future Housing: No Difficulty Paying Gas/Electric Bills: No Difficulty Paying for Meds: No Currently Unemployed: No Education: High School Diploma/GED Difficulty w/ Childcare or Family Care: No Spiritual care concerns: No Meds Home Medications and Allergies Home Medications Medication Instructions Recorded Confirmed Type amlodipine 10 mg tablet 10 mg PO DAILY 12/06/22 01/26/23 History atorvastatin 40 mg tablet 40 mg PO DAILY 12/06/22 01/26/23 History metformin 1,000 mg tablet 1,000 mg PO DAILY 12/06/22 01/26/23 History rivaroxaban 20 mg tablet (Xarelto) 20 mg PO HS 12/06/22 01/26/23 History metoprolol tartrate 25 mg tablet 25 mg PO Q12HR #3 tabs 12/07/22 01/26/23 Rx albuterol 90 mcg/actuation aerosol See Rx Instructions .Route 12/24/22 01/26/23 History inhaler .COMPLEX PRN Shortness Of Breath Or Wheezing nifedipine 30 mg tablet,extended 30 mg PO DAILY 01/26/23 01/26/23 History release 24 hr Allergies Allergy/AdvReac Type Severity Reaction Status Date / Time iodine Allergy Unknown Verified 07/06/16 14:14 Contrast Media Allergy Unknown Uncoded 03/31/16 21:54 Vital Signs Vital Signs - 24 hr 01/25/23 20:36 01/25/23 20:40 01/25/23 22:44 Temperature 97.6 F 97.5 F L Pulse Rate 112 H 115 H Respiratory Rate 22 H 18 Blood Pressure 223/151 H 222/135 H 207/130 H Pulse Oximetry 98 99 Oxygen Delivery Room Air 01/26/23 00:49 01/26/23 01:36 01/26/23 02:12 Temperature Pulse Rate 112 H 109 H 104 H Respiratory Rate 22 H 18 19 Blood Pressure 230/147 H 178/120 H 207/142 H Pulse Oximetry 98 98 100 Oxygen Delivery 01/26/23 03:33 01/26/23 03:47 01/26/23 05:12 Temperature Pulse Rate 99 102 H 102 H Respiratory
[2023-01-26] MEDS: METOPROLOL TARTRATE 25 MG TABLET PO ×2 (09:18→20:03)
[2023-01-26] MEDS: ASPIRIN 81 MG CHEWABLE TABLET PO (09:18)
[2023-01-26] MEDS: metFORMIN HCL 500 MG TABLET 1000 MG PO (09:18)
[2023-01-26] MEDS: amLODIPine BESYLATE 5 MG TABLET 10 MG PO (09:19)
[2023-01-26] MEDS: ATORVASTATIN 40 MG TABLET PO (09:19)
[2023-01-26] MEDS: NIFEdipine 30 MG TAB.ER.24 PO (09:19)
--- NOTE | 2023-01-26 12:25 | PCWOUND ---
W[facility] Received notification of possible wounds. spoke to day RN. chart error. patient does not have any wounds.
[2023-01-26] MEDS: cloNIDine HCL 0.1 MG TABLET PO ×2 (15:07→20:04)
[2023-01-26] MEDS: RIVAROXABAN 20 MG TABLET PO (20:03)
[2023-01-27] VITALS: BP 133/97; PULSE 85; PULSE 86; RESP 22; TEMP 36.9; O2SAT 96; O2SAT 97
[2023-01-27 04:00] VITALS: BP 137/91; PULSE 80; PULSE 82; RESP 20; RESP 24; TEMP 36.8; O2SAT 98; O2SAT 99
[2023-01-27 07:45] VITALS: BP 169/104; PULSE 79; RESP 16; TEMP 36.6; O2SAT 100
[2023-01-27] MEDS: ASPIRIN 81 MG CHEWABLE TABLET PO (07:53)
[2023-01-27] MEDS: metFORMIN HCL 500 MG TABLET 1000 MG PO (07:53)
[2023-01-27 07:54] VITALS: PULSE 93
[2023-01-27] MEDS: METOPROLOL TARTRATE 25 MG TABLET PO (07:54)
[2023-01-27] MEDS: ATORVASTATIN 40 MG TABLET PO (07:54)
[2023-01-27] MEDS: amLODIPine BESYLATE 5 MG TABLET 10 MG PO (07:54)
[2023-01-27] MEDS: NIFEdipine 30 MG TAB.ER.24 PO (07:54)
[2023-01-27] MEDS: cloNIDine HCL 0.1 MG TABLET PO (07:55)
[2023-01-27 07:57] VITALS: PULSE 92; RESP 20; O2SAT 98
--- NOTE | 2023-01-27 08:15 | PM.IMPN ---
Progress Note: A&P Assessment and Plan (1) Hypertensive urgency: Code(s): I16.0 - Hypertensive urgency Status: Acute Assessment and Plan: Clonidine 0.1 mg q.12 hours started 01/24, anticipate discharge soon, discontinue Norvasc at admission as nifedipine was recently started in place of this, added aldactone 25 mg daily 01/27 Would recommend workup for secondary causes of hypertension as an outpatient (2) Acute chest pain: Code(s): R07.9 - Chest pain, unspecified Status: Acute Assessment and Plan: Resolved, likely secondary to hypertensive urgency (3) COPD with asthma: Code(s): J44.9 - Chronic obstructive pulmonary disease, unspecified Status: Acute Assessment and Plan: Stable, not in an exacerbation (4) Congestive heart failure: Code(s): I50.9 - Heart failure, unspecified Status: Acute Assessment and Plan: Appears euvolemic at this time, echo from November 2022 showed an EF of 60-65%, grade 1 diastolic dysfunction, no significant valvular disease noted and no pulmonary hypertension (5) Diabetes: Code(s): E11.9 - Type 2 diabetes mellitus without complications Status: Acute Assessment and Plan: Accu-Cheks, sliding scale insulin, a1c was 5.5 12/17 Plan DVT prophylaxis with SCDs GI prophylaxis not indicated Code status full code Subjective Date/time seen: 01/27/23 08:15 Interval history: No overnight events noted. No chest pain or shortness of breath. No nausea, vomiting or diarrhea. No fevers or chills. Review of Systems Review of Systems: 12 point review of systems was assessed and was negative except as noted in the HPI Exam Narrative: General: No acute distress, alert and oriented per baseline HEENT: Atraumatic, normocephalic, mucous membranes moist CV: Regular rate and rhythm, S1, S2 Lungs: Clear to auscultation bilaterally, no rales or crackles noted, no wheezes, good air entry Abdomen: Soft, nontender, nondistended Extremities: Normal to inspection Skin: No rashes noted, no lesions or wounds seen Psych: Euthymic, normal affect Objective Data Vital Signs Vital Signs: Vital Signs - 24 hr 01/26/23 09:00 01/26/23 09:18 01/26/23 08:30 Temperature Pulse Rate 103 H 79 Respiratory Rate 32 H Blood Pressure Pulse Oximetry 94 Oxygen Delivery Room Air Fraction of Inspired Oxygen 21 01/26/23 08:31 01/26/23 08:45 01/26/23 09:00 Temperature Pulse Rate 93 83 101 H Respiratory Rate 16 23 H Blood Pressure 165/97 H Pulse Oximetry Oxygen Delivery Fraction of Inspired Oxygen 01/26/23 09:01 01/26/23 09:15 01/26/23 09:30 Temperature Pulse Rate 101 H 86 93 Respiratory Rate 20 Blood Pressure 147/101 H Pulse Oximetry Oxygen Delivery Fraction of Inspired Oxygen 01/26/23 09:45 01/26/23 10:00 01/26/23 10:01 Temperature Pulse Rate 80 90 91 Respiratory Rate 17 22 H 12 Blood Pressure 175/114 H Pulse Oximetry Oxygen Delivery Fraction of Inspired Oxygen 01/26/23 12:00 01/26/23 10:02 01/26/23 10:15 Temperature Pulse Rate 90 81 79 Respiratory Rate 19 23 H Blood Pressure Pulse Oximetry 97 Oxygen Delivery Room Air Fraction of Inspired Oxygen 01/26/23 10:29 01/26/23 10:30 01/26/23 10:45 Temperature Pulse Rate 84 82 79 Respiratory Rate Blood Pressure 165/104 H Pulse Oximetry Oxygen Delivery Fraction of Inspired Oxygen 01/26/23 11:00 01/26/23 11:03 01/26/23 11:15 Temperature Pulse Rate 95 94 92 Respiratory Rate Blood Pressure 169/113 H Pulse Oximetry Oxygen Delivery Fraction of Inspired Oxygen 01/26/23 11:30 01/26/23 11:45 01/26/23 12:00 Temperature Pulse Rate 93 94 91 Respiratory Rate 26 H 24 H 26 H Blood Pressure Pulse Oximetry 99 96 Oxygen Delivery Fraction of Inspired Oxygen 01/26/23 12:01 01/26/23 12:15 0
[2023-01-27 10:00] VITALS: BP 127/97
--- NOTE | 2023-01-27 10:12 | PM.DS ---
DS: Admitting Diagnosis Discharge Date 01/27/23 Admitting Diagnosis chest pain DS: Discharge Diagnosis Discharge Diagnosis (1) Hypertensive urgency: Code(s): I16.0 - Hypertensive urgency Status: Acute Assessment and Plan: Clonidine 0.1 mg q.12 hours started 01/24, anticipate discharge soon, discontinue Norvasc at admission as nifedipine was recently started in place of this, added aldactone 25 mg daily 01/27 Would recommend workup for secondary causes of hypertension as an outpatient (2) Acute chest pain: Code(s): R07.9 - Chest pain, unspecified Status: Acute Assessment and Plan: Resolved, likely secondary to hypertensive urgency (3) COPD with asthma: Code(s): J44.9 - Chronic obstructive pulmonary disease, unspecified Status: Acute Assessment and Plan: Stable, not in an exacerbation (4) Congestive heart failure: Code(s): I50.9 - Heart failure, unspecified Status: Acute Assessment and Plan: Appears euvolemic at this time, echo from November 2022 showed an EF of 60-65%, grade 1 diastolic dysfunction, no significant valvular disease noted and no pulmonary hypertension (5) Diabetes: Code(s): E11.9 - Type 2 diabetes mellitus without complications Status: Acute Assessment and Plan: Accu-Cheks, sliding scale insulin, a1c was 5.5 12/17 Plan DVT prophylaxis with SCDs GI prophylaxis not indicated Code status full code DS: Summary Hospital Course Hospital Course: 42-year-old male with history of COPD, hypertension, bipolar disorder, PE and PTSD is presenting with chest pain.? He is also noted that he has had significantly elevated blood pressure over the last few days.? Patient does admit that his metoprolol was recently discontinued in favor of a different blood pressure medicine today.? He states the pain has been constant, it is not associated with shortness of breath.? No nausea, vomiting or diarrhea.? No fevers or chills. Clonidine 0.1 mg q.12 hours started 01/24, anticipate discharge soon, discontinue Norvasc at admission as nifedipine was recently started in place of this, added aldactone 25 mg daily 01/27 Would recommend workup for secondary causes of hypertension as an outpatient Time Spent with Patient Time attestation: Total time spent providing and/or coordinating discharge services: Exam Narrative: General: No acute distress, alert and oriented per baseline HEENT: Atraumatic, normocephalic, mucous membranes moist CV: Regular rate and rhythm, S1, S2 Lungs: Clear to auscultation bilaterally, no rales or crackles noted, no wheezes, good air entry Abdomen: Soft, nontender, nondistended Extremities: Normal to inspection Skin: No rashes noted, no lesions or wounds seen Psych: Euthymic, normal affect DS: Data Data Completed and Pending Labs on day of discharge: Labs from last 24 hours 01/26/23 10:59 Troponin I 0.020 D Discharge Plan Discharge Attending physician on discharge: Rhina Cifuentes Discharging Clinician: Rhina Cifuentes Patient Disposition: Home, Self-Care Activity: as tolerated Diet: as tolerated Patient Instructions: Antibiotic Form, How to Stop Smoking (DC) Stand Alone Forms: General Discharge Information Follow-up/Referrals: Rula,MD Bina [Primary Care Provider] - Discharge Medications: New clonidine HCl 0.1 mg Tablet 0.1 mg PO Q12HR 30 Days Qty: 60 0RF spironolactone 25 mg Tablet 25 mg PO QAM 30 Days Qty: 30 0RF aspirin [Children's Aspirin] 81 mg Tablet,Chewable 81 mg PO DAILY@0800 30 Days Qty: 30 0RF Continued atorvastatin 40 mg tablet 40 mg PO DAILY metformin 1,000 mg tablet 1,000 mg PO DAILY Xarelto 20 mg tablet 20 mg PO HS metoprolol tartrate 25 mg Tablet 25 mg PO Q12HR Qty: 3 0RF albuterol 90 mcg/actuation Aerosol See Rx Instructions .ROUTE .COMPLE
[2023-01-27] MEDS: SPIRONOLACTONE 25 MG TABLET PO (10:13)
== END 2023-01-27 13:27 | disposition home or self-care (01) ==
LOC: ANHED 01-26 04:54 → ANHICU 01-26 05:47
PROVIDERS: Admitting Provider Student in an Organized Health Care Education/Training Program; Emergency Provider Emergency Medicine; PCP Internal Medicine; Visit Provider Student in an Organized Health Care Education/Training Program
DX: I16.0 Hypertensive urgency (principal); I11.0 Hypertensive heart disease with heart failure; I50.9 Heart failure, unspecified; E11.9 Type 2 diabetes mellitus without complications; F31.9 Bipolar disorder, unspecified; J44.9 Chronic obstructive pulmonary disease, unspecified; R94.31 Abnormal electrocardiogram [ECG] [EKG]; R77.8 Other specified abnormalities of plasma proteins; F43.10 Post-traumatic stress disorder, unspecified; F17.210 Nicotine dependence, cigarettes, uncomplicated; Z86.711 Personal history of pulmonary embolism; Z79.84 Long term (current) use of oral hypoglycemic drugs; Z79.01 Long term (current) use of anticoagulants; Z79.899 Other long term (current) drug therapy; Z82.49 Family history of ischemic heart disease and other diseases of the circulatory system
CPT/HCPCS: 36415; 71046; 80053; 83690; 84484; 85025; 85610; 85730; 93005; 96374; 96375; 96376; 99285; A9270; G0378; J0360; J2270

== ENCOUNTER 2023-02-18 22:13 | Observation (INO) | payer MEDICARE, MEDICAID, SELFPAY ==
--- NOTE | ~2023-02-18 | XR_ITS ---
EXAMINATION: XR chest 1V portable DATE: 02/18/2023 22:37 INDICATION: Shortness of breath. TECHNIQUE: A single frontal view of the chest was obtained. COMPARISON: Chest 2 views 01/25/2023, CT chest 12/07/2022 FINDINGS: There are lucencies in the lungs, consistent with emphysema. No pleural effusion or pneumot horax. The heart size is normal. IMPRESSION: 1. Emphysema. Reviewed, dictated and finalized at location E. IMPRESSION: 1. Emphysema.
[2023-02-18 22:12] VITALS: BP 231/105; PULSE 122; RESP 25; TEMP 36.7; O2SAT 99
--- NOTE | 2023-02-18 22:14 | ECG_ITS ---
Measurements Intervals [place] Rate: 118 P: 31 NV: 140 QRS: 6 QRSD: 86 T: 73 QT: 340 QTc: 477 Interpretive Statements SINUS TACHYCARDIA LEFT ATRIAL ENLARGEMENT [-0.15mV P WAVE IN V1/V2] POSSIBLE RIGHT VENTRICULAR CONDUCTION DELAY [RSR (QR) IN V1/V2] NONSPECIFIC T-WAVE ABNORMALITY COMPARED TO ECG 01/25/2023 20:00:42 NO SIGNIFICANT CHANGES Electronically Signed On 02-19-2023 11:00:41 CDT by Vashti Gutierrez M.D.
[2023-02-18 22:19] VITALS: PULSE 118
[2023-02-18 22:45] LABS: Basophils Absolute Auto 0.1 K/mm3 (0.0-0.1); Eosinophils Absolute Auto 0.5 K/mm3 (0-0.3); Eosinophils Percent Auto 3.4 % (0-4.4); Hematocrit 41.3 % (42.0-52.0); Hemoglobin 13.9 g/dL (14.0-18.0); Immature Granulocyte Absolute 0.12 K/mm3 (0.00-0.031); Immature Granulocyte Percent A 0.9 % (0-0.5); Lymphocytes Absolute Auto 2.42 K/mm3 (0.9-3.2); Lymphocytes Percent Auto 17.8 % (18.3-44.2); Mean Corpuscular HGB Conc 33.7 g/dl (32-36); Mean Corpuscular Hemoglobin 29.4 pg (26-34); Mean Corpuscular Volume 87.3 fl (80-100); Mean Platelet Volume 12.1 fl (7.4-10.4); Monocytes Absolute Auto 1.2 K/mm3 (0.1-0.6); Monocytes Percent Auto 8.7 % (2.6-8.5); Neutrophils Absolute Auto 9.3 K/mm3 (1.3-6.7); Neutrophils Percent Auto 68.2 % (45.5-73.1); Platelet Count Result 351 k/mm3 (150-375); Red Blood Count 4.73 M/mm3 (4.6-6.20); Red Cell Distribution Width 14.2 % (11.5-14.5); White Blood Count 13.6 K/mm3 (4.5-10.0)
[2023-02-18 22:57] LABS: INR 0.9; Prothrombin Time 12.8 Seconds (11.1-14.7)
[2023-02-18 22:58] LABS: Partial Thromboplastin Time 33.2 SECONDS (22.3-36.8)
[2023-02-18 23:08] LABS: Alanine Aminotransferase 74 U/L (6-50); Albumin Level 4.6 g/dL (3.5-5.1); Alkaline Phosphatase 153 U/L (38-126); Anion Gap 9 mmol/L (8-16); Aspartate Amino Transferase 43 U/L (17-59); Bilirubin,Total 0.5 mg/dL (0.2-1.3); Blood Urea Nitrogen 22 mg/dL (9-20); Calcium 9.7 mg/dL (8.4-10.2); Carbon Dioxide 27 mmol/L (22-30); Chloride 102 mmol/L (98-107); Estimated CRCL calculation 92 ml/min; Estimated Glomerular Filt Rate > 60; Glucose 136 mg/dL (65-110); Sodium 138 mmol/L (137-145)
[2023-02-18 23:18] LABS: NT Pro B Type Natriuretic Pept 10700 pg/mL (19.9-100); Troponin I 0.032 ng/mL (0.000-0.034)
[2023-02-18 23:30] VITALS: O2SAT 97
[2023-02-18 23:33] VITALS: BP 232/147; PULSE 111; RESP 29; TEMP 37.1; O2SAT 100
[2023-02-18] MEDS: LABETALOL HCL INJ 100 MG/20 ML VIAL 20 MG IV PUSH (23:35)
[2023-02-18] MEDS: cloNIDine HCL 0.1 MG TABLET PO (23:35)
[2023-02-18] MEDS: MORPHINE SULFATE (*CRX) 4 MG/ML INJ IV PUSH (23:38)
--- NOTE | 2023-02-18 23:47 | ED.CHESTPAIN ---
HPI - Chest Pain General Chief Complaint: Chest Pain Stated Complaint: CP Time Seen by Provider: 02/18/23 22:54 History of Present Illness HPI narrative: This is a 42-year-old male with past history of hypertension and CHF, who returns to the emergency department complaining of chest pain and high blood pressure. He states his pain began this morning and became worse approximately 12 hours prior to arrival. Pain is described as sharp, substernal without radiation and rated 6/10. He states he has taken his blood pressure medications as prescribed. Related Data Home Medications Medication Instructions Recorded Confirmed atorvastatin 40 mg tablet 40 mg PO DAILY 12/06/22 02/19/23 metformin 1,000 mg tablet 1,000 mg PO DAILY 12/06/22 02/19/23 rivaroxaban 20 mg tablet (Xarelto) 20 mg PO HS 12/06/22 02/19/23 albuterol 90 mcg/actuation aerosol See Rx Instructions .Route 12/24/22 02/19/23 inhaler .COMPLEX PRN Shortness Of Breath Or Wheezing nifedipine 30 mg tablet,extended 30 mg PO DAILY 01/26/23 02/19/23 release 24 hr Allergies Allergy/AdvReac Type Severity Reaction Status Date / Time iodine Allergy Unknown Unknown Verified 02/18/23 22:20 Contrast Media Allergy Unknown Unknown Uncoded 02/18/23 22:20 Review of Systems Review of Systems: CONSTITUTIONAL: Denies fever, chills, or sweats. CARDIOVASCULAR: Chest pain, palpitations denies edema. RESPIRATORY: Denies cough or dyspnea. GASTROINTESTINAL: Denies abdominal pain, nausea, vomiting, or diarrhea. GENITOURINARY: Denies dysuria or hematuria. SKIN: Denies rash or itching. MUSCULOSKELETAL: Denies back pain, joint pain, or myalgia. NEUROLOGIC: Denies headache, numbness, dizziness, or weakness. PSYCHIATRIC: Denies anxiety or depression. [facility] Past Medical History Medical History Benign essential hypertension Bipolar 1 disorder, depressed COPD with asthma Personal history of pulmonary embolism PTSD (post-traumatic stress disorder) Family History Family History Father Congestive heart failure Hypertension Acute myocardial infarction Diabetes mellitus Sibling Congestive heart failure Hypertension Diabetes mellitus Sibling History of blood clots Diabetes mellitus Sibling History of blood clots Diabetes mellitus Mother Chronic obstructive pulmonary disease Diabetes mellitus Sibling Diabetes mellitus Sibling Diabetes mellitus Sibling Diabetes mellitus Sibling Diabetes mellitus Sibling Diabetes mellitus Social History Social History Years smoked: 30 Smoking status: Current every day smoker Tobacco type: cigarettes Second hand tobacco smoke exposure: No Additional smoking assessment comments: in the past year states he has cut back from smoking 2 packs/day Alcohol intake: never Drinks per week: 1 Substance use: never Lack of Transportation: No Lack of Food: Never True Current Housing: I Do Not Have Housing Concerned About Future Housing: No Difficulty Paying Gas/Electric Bills: No Difficulty Paying for Meds: No Currently Unemployed: No Education: High School Diploma/GED Difficulty w/ Childcare or Family Care: No Occupation/Education: unemployed Gender identity (if verbalized by the patient): Male Spiritual care concerns: No Exam Narrative: GENERAL: Well-developed, well-nourished, appears uncomfortable HEAD: Normocephalic, atraumatic. EYES: PERRLA and EOMI. ENT: Nares clear, no rhinorrhea or epistaxis. Mucous membranes moist. Oropharynx without tonsillar hypertrophy exudate or other lesions. NECK: Supple. No adenopathy or masses. No carotid bruits or JVD CHEST: Clear to auscultation. No respiratory distress. No wheezes rales or rhonchi HEART: Tachycardic with regular rhythm. No murmur heard. Normal peripheral pulse
[2023-02-19] VITALS (24 sets, daily range): BP systolic 126–187; BP diastolic 71–131; PULSE 78–102; RESP 14–36; TEMP 36.3–36.8; O2SAT 91–100; BMI 40.3
[2023-02-19] MEDS: NITROGLYCERIN SL 0.4 MG TABLET SUBLINGUAL (00:11)
[2023-02-19] MEDS: NITROGLYCERIN/D5W 200 MCG/ML 50 MG/250 ML BTL IV CONT (00:17)
[2023-02-19] MEDS: FUROSEMIDE INJ 40 MG/4 ML VIAL IV PUSH (00:29)
[2023-02-19] MEDS: POTASSIUM CHLORIDE INJ 40 MEQ in SODIUM CHLORIDE 0.9% IV 500 ML 130 MEQ IVPB (01:30)
[2023-02-19] MEDS: POTASSIUM CHLORIDE 20 MEQ TABLET 40 MEQ PO (01:46)
[2023-02-19 02:36] LABS: Troponin I 0.042 ng/mL (0.000-0.034)
[2023-02-19] MEDS: MORPHINE SULFATE (*CRX) 4 MG/ML INJ IV PUSH ×2 (02:39→04:39)
--- NOTE | 2023-02-19 04:43 | ADMGEN ---
This patient, Enrike Dhaliwal, was admitted to Intensive Care Unit-1. Patient/family oriented to hospital policies and general routines including ID bracelet, bed and alarms, visiting hours, pain management, procedures, bathroom and other care routines, personal items, smoking policy, room service/diet, and visiting hours. Information on how to activate the Rapid Response Team has been discussed. Patient/Family are encouraged to report perceived risks to care and to ask questions if they do not understand what they are told or what they should do.
--- NOTE | 2023-02-19 05:29 | PM.IMHP ---
H&P: HPI History of Present Illness Date/Time: 02/19/23 02:00 Chief Complaint: Chest pain Narrative: 42-year-old male with a past of pulmonary embolisms x2, diastolic heart failure, hyperlipidemia, hypertension, intellectual disability and diabetes who presented to the ER with chest pain and was found to be in hypertensive urgency. The patient had recently been admitted to the hospital 01/26/2023 due to hypertensive urgency. The patient reports that he has been compliant with all of his home antihypertensive since discharge. However he does still drink a significant amount of soda and uses salt heavily on his food. He reports that he felt fine until today at around a.m. when he started having left substernal chest pain that was sharp and stabbing in nature. It was severe in intensity. It occurred while he was at rest. It is been accompanied by increased dyspnea on exertion. He denies any lower extremity swelling. He has not had any significant change in his chronic smoker's cough. He occasionally will cough up some yellow sputum but that is not abnormal for him. However he does report that he has been having sleep in a recliner for a couple of months due to his orthopnea. He reports that his oxygen saturations were dropping below 90% any time he would try to sleep in bed. His girlfriend periodically checks his pulse ox when he is sleeping in the recliner and for the most part is oxygen saturations are staying closer to 90%. He does have obstructive sleep apnea but is not able to tolerate his full face mask on his CPAP. His daytime fatigue has improved with him sleeping in the recliner. He denies any eliciting or relieving factors for his pain. His pain is been constant in unchanged since 08:00. Is also been accompanied by developing a severe headache. He also reported blurred vision. When he arrived to the ER his blood pressures or to 31/105. He received a dose of IV labetalol and p.o. clonidine 0.1 mg as well as 4 mg of morphine x2. Despite these measures the patient's blood pressures remained in the 230s systolic. He was placed on a nitro drip in the ER and had immediate improvement in his blood pressure. In fact his blood pressures did dip recently into the 90s systolic. However his nitro drip was titrated and his blood pressures at the time of my evaluation were in the 170 systolic. He denies any lower extremity swelling, calf pain or tenderness. He was mildly tachycardic in the ER. The patient reports he has been compliant with his home Xarelto. He tells me that he after receiving IV contrast for CT scan when he was a child. The patient is only a fair historian due to his history of intellectual disability. The patient was noted to be markedly disheveled and had body odor. The patient states that they do not have a hot water heater at home and he has not been able to take a shower in at least 10 days. He states that they have not had a water heater since they moved into their mobile home 3 months ago. He reports multiple dental caries. He denies any dental pain and there is no noted swelling on exam. He denies any urinary or bowel symptoms. He does not weigh himself. He reports pins and needle sensation in his feet when he wakes up in the morning. He is unaware of a diagnosis of peripheral neuropathy. Review of Systems Review of Systems: 12 systems were reviewed with pertinent positives and negatives per HPI. Except as documented in the HPI, all other systems were reviewed and are negative. 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
[2023-02-19 07:01] LABS: Influenza A QL RT-PCR Negative (Negative); Influenza B QL RT-PCR Negative (Negative); RSV RNA, RT-PCR Negative (Negative); SARS-CoV-2 RNA PCR Negative (Negative)
[2023-02-19 07:41] LABS: Troponin I 0.037 ng/mL (0.000-0.034)
[2023-02-19] MEDS: NIFEdipine 30 MG TAB.ER.24 PO ×2 (07:52→09:18)
[2023-02-19] MEDS: ATORVASTATIN 40 MG TABLET PO (07:52)
[2023-02-19] MEDS: cloNIDine HCL 0.1 MG TABLET PO ×2 (07:52→22:47)
[2023-02-19] MEDS: metFORMIN HCL 500 MG TABLET 1000 MG PO (07:52)
[2023-02-19] MEDS: SPIRONOLACTONE 25 MG TABLET PO (07:52)
[2023-02-19 08:35] LABS: Glucose Point of Care 136 mg/dl (65-105)
[2023-02-19 09:08] LABS: Anion Gap 8 mmol/L (8-16); Blood Urea Nitrogen 21 mg/dL (9-20); Calcium 8.8 mg/dL (8.4-10.2); Carbon Dioxide 28 mmol/L (22-30); Chloride 102 mmol/L (98-107); Estimated CRCL calculation 85 ml/min; Estimated Glomerular Filt Rate > 60; Glucose 134 mg/dL (65-110); Potassium 3.1 mmol/L (3.4-5.0); Sodium 138 mmol/L (137-145)
--- NOTE | 2023-02-19 09:15 | WPDCNINT ---
Assessment and Plan Assessment and plan (1) Hypertensive emergency: Code(s): I16.1 - Hypertensive emergency Status: Acute Assessment and Plan: Patient presented with elevated blood pressure despite claiming complaints with his home medication of clonidine and nifedipine He was started on nitroglycerin infusion but is currently at a very low rate of 5 mcg Will try to keep blood pressure below 180 for next 24 hours Increase nifedipine to 60 mg Continue clonidine at 0.1 mg q.12 hours Add lisinopril 20 mg p.o. q.day P.r.n. labetalol Weaned off nitroglycerin infusion (2) Type 2 diabetes mellitus: Qualifiers: Diabetes mellitus complication detail: with polyneuropathy Diabetes mellitus complication status: with neurologic complications Diabetes mellitus alf insulin use: without alf use Qualified Code(s): E11.42 - Type 2 diabetes mellitus with diabetic polyneuropathy Code(s): E11.9 - Type 2 diabetes mellitus without complications Status: Acute Assessment and Plan: Continue sliding scale insulin Continue metformin (3) Chest pain: Qualifiers: Chest pain type: unspecified Qualified Code(s): R07.9 - Chest pain, unspecified Code(s): R07.9 - Chest pain, unspecified Status: Acute Assessment and Plan: Patient's chest pain from history is noncardiac nature P.r.n. Tylenol [place] and morphine depending on the severity of the pain His EKG did not show any ST elevation Troponin level is slightly elevated but flat which could be secondary to hypertensive emergency. Patient does have risk factors of coronary disease Discussed with Cardiology and Dr. Gutierrez recommends outpatient stress test (4) COPD with asthma: Code(s): J44.9 - Chronic obstructive pulmonary disease, unspecified Status: Acute Assessment and Plan: Not in exacerbation Currently on room air Continue bronchodilators (5) Smoking: Code(s): F17.200 - Nicotine dependence, unspecified, uncomplicated Status: Acute Assessment and Plan: Patient was counseled and encouraged to quit smoking (6) Hypokalemia: Code(s): E87.6 - Hypokalemia Status: Acute Assessment and Plan: Patient was given replacement Recheck BMP now (7) Congestive heart failure: Code(s): I50.9 - Heart failure, unspecified Status: Acute Assessment and Plan: Patient received Lasix in ED Chest x-ray shows emphysema Patient on room air No significant edema on the legs Monitor for now place potassium hold further Lasix Plan DVT prophylaxis -Xarelto Nutrition -diabetic diet Code Status - Full Code Total Critical Care Time - 32 minutes Due to a high probability of clinically significant, life threatening deterioration, the patient required my highest level of preparedness to intervene emergently and I personally spent this critical care time directly and personally managing the patient. This critical care time included obtaining a history; examining the patient; pulse oximetry; ordering and review of studies; arranging urgent treatment with development of a management plan; evaluation of patient's response to treatment; frequent reassessment; and discussions with other providers. It was exclusive of separately billable procedures and treating other patients and teaching time. Please see Assessment and Plan section and the rest of the note for further information on patient assessment and treatment [employer] Consult Note Consult date: 02/19/23 Reason for consult: Hypertensive urgency and chest pain HPI: Enrike Dhaliwal is a 42 year old male with past medical history oft of pulmonary embolisms x2, diastolic heart failure, hyperlipidemia, hypertension, intellectual disability and diabetes who presented to the ER with chest pain last night and was found to be in hypertensive urgency.? The patient had recently been admitted to the hospital 01/26/2023 due to hy
[2023-02-19] MEDS: lisinopriL 20 MG TABLET PO (09:18)
[2023-02-19] MEDS: HYDROcodone/acetaminophen (*CRX) 5-325 MG TABLET 1 TAB PO (09:18)
--- NOTE | 2023-02-19 09:18 | PM.CNCAR ---
Assessment and Plan Assessment and plan (1) Hypertensive emergency: Code(s): I16.1 - Hypertensive emergency Status: Acute Assessment and Plan: His home medications of Clonidine, Nifedipine, and Spironolactone were resumed. Nitroglycerin being weaned off. Wean off tolerated. Agree with adding Lisinopril and increasing dose of Nifedipine. Recent echocardiogram from 11/2022 shows LVEF 60-65%, mildly increased LV wall thickness, no significant valvular disease. (2) Chest pain: Qualifiers: Chest pain type: unspecified Qualified Code(s): R07.9 - Chest pain, unspecified Code(s): R07.9 - Chest pain, unspecified Status: Acute Assessment and Plan: Atypical. Sharp, worsens with deep breathing. Troponins are mildly elevated in the setting of hypertensive emergency but flat. EKG without ischemic changes. Does not appear to be acute coronary syndrome. (3) Elevated troponin: Code(s): R77.8 - Other specified abnormalities of plasma proteins Status: Acute Assessment and Plan: Troponins are mildly elevated in the setting of hypertensive emergency but flat. EKG without ischemic changes. Does not appear to be acute coronary syndrome. History of Present Illness History of Present Illness Consult date/time: 02/19/23 09:18 Requesting physician: Thai Ward MD Consult reason: hypertension Reason For Visit: hypertensive emergency,chf exacerbation Narrative: We are consulted for hypertensive emergency. This is a 42 year old male with past history of pulmonary embolism on Xarelto, hypertension, diastolic heart failure, hyperlipidemia, diabetes, intellectual disability who presented to the ER with chest pain and found to be in hypertensive emergency. Patient reports yesterday morning around 8AM, he developed anterior chest pain that was sharp and constant. Worsens with breathing. Upon presentation to the ER, patient's SBP noted to be in the 230s. Patient reports taking his home blood pressure medications, but has not been able to check his blood pressure at home as the battery on his blood pressure machine and he unfortunately does not have the money to replace it. Patient given IV Labetalol and dose of PO Clonidine, however, remained hypertensive. Therefore, started on Nitroglycerin drip with improvement. His troponins were noted to be mildly elevated 0.032 --> 0.042 --> 0.037. EKG sinus rhythm without ischemic changes. BNP 10,700. CXR with emphysema but without acute findings. 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 Type 2 diabetes mellitus Surgical History Surgical History H/O right inguinal hernia repair Status post open reduction with internal fixation of fracture Right ankle Family History Family History Father Congestive heart failure Hypertension Acute myocardial infarction Diabetes mellitus Sibling Congestive heart failure Hypertension Diabetes mellitus Sibling History of blood clots Diabetes mellitus Sibling History of blood clots Diabetes mellitus Mother Chronic obstructive pulmonary disease Diabetes mellitus Sibling Diabetes mellitus Sibling Diabetes mellitus Sibling Diabetes mellitus Sibling Diabetes mellitus Sibling Diabetes mellitus Social History Social History (Reviewed 02/19/23 @ 09:2
[2023-02-19] MEDS: LABETALOL HCL INJ 100 MG/20 ML VIAL 20 MG IV PUSH (09:46)
[2023-02-19 12:03] LABS: Glucose Point of Care 137 mg/dl (65-105)
[2023-02-19 16:25] LABS: Glucose Point of Care 102 mg/dl (65-105)
[2023-02-19] MEDS: RIVAROXABAN 20 MG TABLET PO (20:42)
[2023-02-20] VITALS (15 sets, daily range): BP systolic 118–175; BP diastolic 64–107; PULSE 78–110; RESP 20–25; TEMP 36.3–36.6; O2SAT 90–99
[2023-02-20 03:59] LABS: Alanine Aminotransferase 59 U/L (6-50); Albumin Level 3.8 g/dL (3.5-5.1); Alkaline Phosphatase 133 U/L (38-126); Anion Gap 8 mmol/L (8-16); Aspartate Amino Transferase 27 U/L (17-59); Bilirubin,Total 0.5 mg/dL (0.2-1.3); Blood Urea Nitrogen 17 mg/dL (9-20); Calcium 8.6 mg/dL (8.4-10.2); Carbon Dioxide 26 mmol/L (22-30); Chloride 101 mmol/L (98-107); Estimated CRCL calculation 115 ml/min; Estimated Glomerular Filt Rate > 60; Glucose 82 mg/dL (65-110); Sodium 135 mmol/L (137-145)
[2023-02-20 04:48] LABS: Hematocrit 37.1 % (42.0-52.0); Hemoglobin 12.2 g/dL (14.0-18.0); Mean Corpuscular HGB Conc 32.9 g/dl (32-36); Mean Corpuscular Hemoglobin 29.4 pg (26-34); Mean Corpuscular Volume 89.4 fl (80-100); Mean Platelet Volume 12.1 fl (7.4-10.4); Platelet Count Result 293 k/mm3 (150-375); Red Blood Count 4.15 M/mm3 (4.6-6.20); Red Cell Distribution Width 14.6 % (11.5-14.5); White Blood Count 11.7 K/mm3 (4.5-10.0)
[2023-02-20 07:37] LABS: Glucose Point of Care 98 mg/dl (65-105)
[2023-02-20] MEDS: cloNIDine HCL 0.1 MG TABLET PO ×2 (07:59→20:49)
[2023-02-20] MEDS: NIFEdipine 30 MG TAB.ER.24 60 MG PO (08:00)
[2023-02-20] MEDS: lisinopriL 20 MG TABLET PO (08:00)
[2023-02-20] MEDS: metFORMIN HCL 500 MG TABLET 1000 MG PO (08:00)
[2023-02-20] MEDS: ATORVASTATIN 40 MG TABLET PO (08:00)
[2023-02-20] MEDS: SPIRONOLACTONE 25 MG TABLET PO (08:00)
[2023-02-20] MEDS: UMECLIDINIUM BROMIDE 62.5 MCG ELLIPTA 1 PUFF INHALATION (08:57)
[2023-02-20] MEDS: POTASSIUM CHLORIDE INJ 40 MEQ in SODIUM CHLORIDE 0.9% IV 500 ML 130 MEQ IVPB (10:11)
[2023-02-20] MEDS: POTASSIUM CHLORIDE 20 MEQ TABLET 40 MEQ PO (10:16)
[2023-02-20 11:36] LABS: Glucose Point of Care 100 mg/dl (65-105)
--- NOTE | 2023-02-20 15:50 | PM.IMPN ---
Progress Note: A&P Assessment and Plan (1) Hypertensive emergency: Code(s): I16.1 - Hypertensive emergency Status: Acute (2) Chest pain: Qualifiers: Chest pain type: unspecified Qualified Code(s): R07.9 - Chest pain, unspecified Code(s): R07.9 - Chest pain, unspecified Status: Acute (3) Acute exacerbation of CHF (congestive heart failure): Qualifiers: Heart failure type: diastolic Qualified Code(s): I50.33 - Acute on chronic diastolic (congestive) heart failure Code(s): I50.9 - Heart failure, unspecified Status: Acute (4) Tachycardia with hypertension: Code(s): R00.0 - Tachycardia, unspecified; I10 - Essential (primary) hypertension Status: Acute (5) Obstructive sleep apnea: Code(s): G47.33 - Obstructive sleep apnea (adult) (pediatric) Status: Acute (6) Type 2 diabetes mellitus: Qualifiers: Diabetes mellitus manager intermediate insulin use: without manager intermediate use Diabetes mellitus complication status: with neurologic complications Diabetes mellitus complication detail: with polyneuropathy Qualified Code(s): E11.42 - Type 2 diabetes mellitus with diabetic polyneuropathy Code(s): E11.9 - Type 2 diabetes mellitus without complications Status: Acute (7) Tobacco dependence: Code(s): F17.200 - Nicotine dependence, unspecified, uncomplicated Status: Acute Plan The patient presents with hypertensive emergency with chest pain and hitting due to uncontrolled hypertension. Will resume the patient's home nifedipine and clonidine. The patient would benefit from some beta blockade affect. Will defer change in antihypertensives to the marketing communications manager. The patient has been admitted to the ICU. The heat treating operator was consulted from the ER. Patient remains on a nitro drip currently. His headache and vision changes have resolved but he continues to have chest pain. However his chest pain is atypical in nature. His troponin did increase slightly but again this is likely due to demand ischemia from his hypertensive emergency. The patient's chest pain could be due to pulmonary embolism but this is less likely given the patient is on chronic Xarelto. He is adamant that he takes his home Xarelto. He is not having any leg swelling or calf pain that would suggest DVT in the S chances of pulmonary embolism is less likely. Will continue to monitor and consider premedication for CTA of the chest if symptoms persist. The patient would definitely need premedication as he states his allergic reaction was that he when he was a child when he received IV contrast. Patient likely did have anaphylaxis any had IV contrast but it sounds like he does not know if the contrast was for CT or for an MRI. He states that he always gets premedication for IV contrast. The patient's x-ray is suspicious for some pulmonary edema on my review. The patient's BMP is significantly elevated from last month. He describes orthopnea and paroxysmal nocturnal dyspnea suggesting CHF exacerbation. Will continue patient on diuretic therapy. Will monitor strict I&O's and daily weights. I had a long discussion with the patient about the importance of a low-salt diet and a somewhat fluid restricted diet. The patient verbalized understanding but will likely have more difficulty with compliance due to his intellectual disability. The patient has untreated obstructive sleep apnea. I encouraged the patient to try to wear his CPAP while he is watching TV and in his recliner. The importance of CPAP was discussed with the patient in fact told him that this would help him with his symptoms of both chest pain and shortness of breath from his heart failure. Patient does have type 2 diabetes mellitus and drinks regular soda quite lucie with only and then large amounts. The importance of limiting soda in taking specially she sodas containing sugar was discussed with the patient. Will abbey
[2023-02-20 16:41] LABS: Anion Gap 6 mmol/L (8-16); Blood Urea Nitrogen 16 mg/dL (9-20); Carbon Dioxide 25 mmol/L (22-30); Chloride 105 mmol/L (98-107); Estimated CRCL calculation 103 ml/min; Estimated Glomerular Filt Rate > 60; Glucose 93 mg/dL (65-110); Magnesium 1.9 mg/dL (1.6-2.3); Potassium 3.7 mmol/L (3.4-5.0); Sodium 136 mmol/L (137-145)
[2023-02-20 17:17] LABS: Glucose Point of Care 107 mg/dl (65-105)
[2023-02-20] MEDS: RIVAROXABAN 20 MG TABLET PO (20:48)
[2023-02-20 21:01] LABS: Glucose Point of Care 95 mg/dl (65-105)
[2023-02-21] VITALS (8 sets, daily range): BP systolic 154–182; BP diastolic 98–119; PULSE 87–104; RESP 18–20; TEMP 36.1–36.6; O2SAT 98–99
[2023-02-21 05:14] LABS: Hematocrit 35.8 % (42.0-52.0); Hemoglobin 11.5 g/dL (14.0-18.0); Mean Corpuscular HGB Conc 32.1 g/dl (32-36); Mean Corpuscular Hemoglobin 28.3 pg (26-34); Mean Corpuscular Volume 88.2 fl (80-100); Mean Platelet Volume 11.7 fl (7.4-10.4); Platelet Count Result 299 k/mm3 (150-375); Red Blood Count 4.06 M/mm3 (4.6-6.20); Red Cell Distribution Width 14.2 % (11.5-14.5)
[2023-02-21 05:24] LABS: Alanine Aminotransferase 52 U/L (6-50); Albumin Level 3.8 g/dL (3.5-5.1); Alkaline Phosphatase 124 U/L (38-126); Anion Gap 7 mmol/L (8-16); Aspartate Amino Transferase 22 U/L (17-59); Bilirubin,Total 0.5 mg/dL (0.2-1.3); Blood Urea Nitrogen 16 mg/dL (9-20); Carbon Dioxide 26 mmol/L (22-30); Chloride 105 mmol/L (98-107); Estimated CRCL calculation 104 ml/min; Estimated Glomerular Filt Rate > 60; Glucose 85 mg/dL (65-110); Magnesium 1.9 mg/dL (1.6-2.3); Potassium 3.4 mmol/L (3.4-5.0); Sodium 138 mmol/L (137-145)
[2023-02-21 07:54] LABS: Glucose Point of Care 90 mg/dl (65-105)
[2023-02-21] MEDS: LABETALOL HCL INJ 100 MG/20 ML VIAL 20 MG IV PUSH (08:20)
[2023-02-21] MEDS: ATORVASTATIN 40 MG TABLET PO (08:24)
[2023-02-21] MEDS: metFORMIN HCL 500 MG TABLET 1000 MG PO (08:24)
[2023-02-21] MEDS: lisinopriL 20 MG TABLET PO (08:24)
[2023-02-21] MEDS: SPIRONOLACTONE 25 MG TABLET PO (08:25)
[2023-02-21] MEDS: NIFEdipine 30 MG TAB.ER.24 60 MG PO (08:25)
[2023-02-21] MEDS: cloNIDine HCL 0.1 MG TABLET PO (08:31)
[2023-02-21] MEDS: POTASSIUM CHLORIDE 20 MEQ TABLET 40 MEQ PO (09:51)
--- NOTE | 2023-02-21 10:55 | PM.DS ---
DS: Admitting Diagnosis Discharge Date 02/21/2023 Admitting Diagnosis Chest pain DS: Discharge Diagnosis Discharge Diagnosis (1) Hypertensive emergency: Code(s): I16.1 - Hypertensive emergency Status: Acute (2) Chest pain: Qualifiers: Chest pain type: unspecified Qualified Code(s): R07.9 - Chest pain, unspecified Code(s): R07.9 - Chest pain, unspecified Status: Acute (3) Acute exacerbation of CHF (congestive heart failure): Qualifiers: Heart failure type: diastolic Qualified Code(s): I50.33 - Acute on chronic diastolic (congestive) heart failure Code(s): I50.9 - Heart failure, unspecified Status: Acute (4) Tachycardia with hypertension: Code(s): R00.0 - Tachycardia, unspecified; I10 - Essential (primary) hypertension Status: Acute (5) Obstructive sleep apnea: Code(s): G47.33 - Obstructive sleep apnea (adult) (pediatric) Status: Acute (6) Type 2 diabetes mellitus: Qualifiers: Diabetes mellitus oysterman insulin use: without oysterman use Diabetes mellitus complication status: with neurologic complications Diabetes mellitus complication detail: with polyneuropathy Qualified Code(s): E11.42 - Type 2 diabetes mellitus with diabetic polyneuropathy Code(s): E11.9 - Type 2 diabetes mellitus without complications Status: Acute (7) Tobacco dependence: Code(s): F17.200 - Nicotine dependence, unspecified, uncomplicated Status: Acute Plan The patient presents with hypertensive emergency with chest pain and hitting due to uncontrolled hypertension. Will resume the patient's home nifedipine and clonidine. The patient would benefit from some beta blockade affect. Will defer change in antihypertensives to the oracle database manager. The patient has been admitted to the ICU. The traffic signal supervisor maintenance was consulted from the ER. Patient remains on a nitro drip currently. His headache and vision changes have resolved but he continues to have chest pain. However his chest pain is atypical in nature. His troponin did increase slightly but again this is likely due to demand ischemia from his hypertensive emergency. The patient's chest pain could be due to pulmonary embolism but this is less likely given the patient is on chronic Xarelto. He is adamant that he takes his home Xarelto. He is not having any leg swelling or calf pain that would suggest DVT in the S chances of pulmonary embolism is less likely. Will continue to monitor and consider premedication for CTA of the chest if symptoms persist. The patient would definitely need premedication as he states his allergic reaction was that he when he was a child when he received IV contrast. Patient likely did have anaphylaxis any had IV contrast but it sounds like he does not know if the contrast was for CT or for an MRI. He states that he always gets premedication for IV contrast. The patient's x-ray is suspicious for some pulmonary edema on my review. The patient's BMP is significantly elevated from last month. He describes orthopnea and paroxysmal nocturnal dyspnea suggesting CHF exacerbation. Will continue patient on diuretic therapy. Will monitor strict I&O's and daily weights. I had a long discussion with the patient about the importance of a low-salt diet and a somewhat fluid restricted diet. The patient verbalized understanding but will likely have more difficulty with compliance due to his intellectual disability. The patient has untreated obstructive sleep apnea. I encouraged the patient to try to wear his CPAP while he is watching TV and in his recliner. The importance of CPAP was discussed with the patient in fact told him that this would help him with his symptoms of both chest pain and shortness of breath from his heart failure. Patient does have type 2 diabetes mellitus and drinks regular soda quite lucie with only and then large amounts. The importance of limiting
== END 2023-02-21 11:30 | disposition home or self-care (01) ==
LOC: ANHED 22:54 → ANHICU 02-19 03:47 → ANHIMU 02-21 10:55 → ANHICU 02-22 13:05 → ANHIMU 02-22 13:05
PROVIDERS: Internal Medicine; Admitting Provider Internal Medicine; Emergency Provider Preventive Medicine Aerospace Medicine; PCP Internal Medicine; Visit Provider Family Medicine
DX: I16.1 Hypertensive emergency (principal); R07.9 Chest pain, unspecified; I11.0 Hypertensive heart disease with heart failure; I50.30 Unspecified diastolic (congestive) heart failure; R00.0 Tachycardia, unspecified; R77.8 Other specified abnormalities of plasma proteins; E11.42 Type 2 diabetes mellitus with diabetic polyneuropathy; F31.9 Bipolar disorder, unspecified; R06.02 Shortness of breath; F79 Unspecified intellectual disabilities; J44.9 Chronic obstructive pulmonary disease, unspecified; G47.33 Obstructive sleep apnea (adult) (pediatric); E87.6 Hypokalemia; F43.10 Post-traumatic stress disorder, unspecified; F10.20 Alcohol dependence, uncomplicated; F17.210 Nicotine dependence, cigarettes, uncomplicated; F12.90 Cannabis use, unspecified, uncomplicated; Z20.822 Contact with and (suspected) exposure to COVID-19; Z79.84 Long term (current) use of oral hypoglycemic drugs; Z79.01 Long term (current) use of anticoagulants; Z79.51 Long term (current) use of inhaled steroids; Z79.899 Other long term (current) drug therapy; Z86.711 Personal history of pulmonary embolism; Z82.49 Family history of ischemic heart disease and other diseases of the circulatory system
CPT/HCPCS: 36415; 71045; 80048; 80053; 82948; 83735; 83880; 84484; 85025; 85027; 85610; 85730; 87637; 93005; 94640; 96365; 96366; 96375; 96376; 99285; A9270; G0378; J1940; J2270; J3480; J7040

== ENCOUNTER 2023-02-26 03:20 | Emergency (ER) | payer MEDICARE, MEDICAID, SELFPAY ==
[2023-02-26] VITALS (7 sets, daily range): BP systolic 158–173; BP diastolic 103–120; PULSE 95–110; RESP 19–25; TEMP 36.7; O2SAT 97–99
--- NOTE | ~2023-02-26 | XR_ITS ---
Portable chest x-ray Comparison: 02/18/2023 Clinical History: Chest pain Findings: Lungs are clear, without focal consolidation or pleural effusion. Cardiomediastinal silho uette is stable. Bones and soft tissues are unremarkable. Impression: Clear lungs. Reviewed, dictated and finalized at location . Impression: Clear lungs.
--- NOTE | 2023-02-26 03:37 | ECG_ITS ---
Measurements Intervals [place] Rate: 109 P: 33 VT: 136 QRS: 57 QRSD: 88 T: 42 QT: 342 QTc: 462 Interpretive Statements SINUS TACHYCARDIA LEFT ATRIAL ENLARGEMENT INCOMPLETE RIGHT BUNDLE BRANCH BLOCK DELAYED PRECORDIAL R/S TRANSITION NONSPECIFIC T-WAVE ABNORMALITY- DIFFUSE LEADS BASELINE ARTIFACT- I, III, AVL ABNORMAL ECG COMPARED TO ECG 02/18/2023 22:18:08 NO SIGNIFICANT CHANGES Electronically Signed On 02-26-2023 6:50:17 CDT by Saurabh Torres D.O.
--- NOTE | 2023-02-26 03:42 | ED.CHESTPAIN ---
HPI - Chest Pain General Chief Complaint: Chest Pain Stated Complaint: chest pain Time Seen by Provider: 02/26/23 03:28 History of Present Illness HPI narrative: Patient is a 42-year-old male with a history of CHF, COPD, diabetes, hypertension, hyperlipidemia, PE on Xarelto presenting with chest pain. Patient states that he has had substernal chest pain for the last 21 hours. States that he was sitting in his recliner when it started. States that he was hoping it would go away but it persisted so he decided to come in. States that he was recently admitted for high blood pressure. States that he has been taking all of his medications as prescribed including his Xarelto. He denies headache, vision changes, numbness or weakness, fevers, abdominal pain, nausea or vomiting, diarrhea, leg swelling, dysuria. Related Data Home Medications Medication Instructions Recorded Confirmed albuterol 90 mcg/actuation aerosol See Rx Instructions .Route 12/24/22 02/28/23 inhaler .COMPLEX PRN Shortness Of Breath Or Wheezing Allergies Allergy/AdvReac Type Severity Reaction Status Date / Time iodine Allergy Unknown Unknown Verified 02/27/23 20:52 Contrast Media Allergy Unknown Unknown Uncoded 02/27/23 20:52 Review of Systems Review of Systems: All systems reviewed & are unremarkable except as noted in HPI and below PMFSH Past Medical History Medical History (Updated 02/28/23 @ 02:16 by Edyta Mosley MD) Alcoholism in recovery Benign essential hypertension Bipolar 1 disorder, depressed COPD with asthma Hypertensive emergency Malignant tumor, spindle cell type Mixed hyperlipidemia Nicotine abuse Obstructive sleep apnea Personal history of pulmonary embolism PTSD (post-traumatic stress disorder) 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 Type 2 diabetes mellitus Surgical History Surgical History H/O right inguinal hernia repair Status post open reduction with internal fixation of fracture Right ankle Family History Family History Father Congestive heart failure Hypertension Acute myocardial infarction Diabetes mellitus Sibling Congestive heart failure Hypertension Diabetes mellitus Sibling History of blood clots Diabetes mellitus Sibling History of blood clots Diabetes mellitus Mother Chronic obstructive pulmonary disease Diabetes mellitus Sibling Diabetes mellitus Sibling Diabetes mellitus Sibling Diabetes mellitus Sibling Diabetes mellitus Sibling Diabetes mellitus Social History Social History Social History: He lives in a mobile home that does not have an hot water heater. He lives with his matti and her 13-year-old nephew. He he is on disability due to his intellectual disability. He has smoked as much as 2 packs cigarettes per day but has cut back to 1-2 cigarettes per day since October 2022. He used to be an alcoholic in drink a case of beer a day but stopped drinking alcohol in 2019. He used to smoke marijuana but has not done so since he was diagnosed with heart failure. He denies any other illicit substance use. He used to also cut and has associated scars on his forearms. They have 3 dogs and 3 cats. Code status: Full code Surrogate decision maker: Fred Marshall (significant other) Smoking packs per day: 0.1 Smoking cigarettes per day: 2.0 Years smoked: 30 Smoking pack-years: 3.00 Smoking status: Light tobacco smoker Tobacco type: cigarettes Second hand tobacco smoke exposure: Yes Additional smoking assessment comments: cut down from 2 packs 3 months ago Alcohol intake: former Drinks per week: 0 Substance use: former Substance use type: marijuana Lack of Transportation: No Lack of Food: Never True Current
[2023-02-26 03:51] LABS: Basophils Absolute Auto 0.2 K/mm3 (0.0-0.1); Eosinophils Absolute Auto 0.4 K/mm3 (0-0.3); Eosinophils Percent Auto 2.9 % (0-4.4); Hematocrit 40.2 % (42.0-52.0); Immature Granulocyte Absolute 0.17 K/mm3 (0.00-0.031); Immature Granulocyte Percent A 1.1 % (0-0.5); Lymphocytes Absolute Auto 2.88 K/mm3 (0.9-3.2); Lymphocytes Percent Auto 19.3 % (18.3-44.2); Mean Corpuscular HGB Conc 32.3 g/dl (32-36); Mean Corpuscular Volume 89.5 fl (80-100); Mean Platelet Volume 11.3 fl (7.4-10.4); Monocytes Absolute Auto 1.1 K/mm3 (0.1-0.6); Monocytes Percent Auto 7.4 % (2.6-8.5); Neutrophils Absolute Auto 10.2 K/mm3 (1.3-6.7); Neutrophils Percent Auto 68.3 % (45.5-73.1); Platelet Count Result 418 k/mm3 (150-375); Red Blood Count 4.49 M/mm3 (4.6-6.20); Red Cell Distribution Width 14.3 % (11.5-14.5); White Blood Count 14.9 K/mm3 (4.5-10.0)
[2023-02-26] MEDS: ACETAMINOPHEN 500 MG TABLET 1000 MG PO (03:51)
[2023-02-26] MEDS: NITROGLYCERIN SL 0.4 MG TABLET SUBLINGUAL (03:52)
[2023-02-26 04:01] LABS: INR 1.6; Prothrombin Time 19.8 Seconds (11.1-14.7)
[2023-02-26 04:03] LABS: Partial Thromboplastin Time 50.2 SECONDS (22.3-36.8)
[2023-02-26 04:04] LABS: Alanine Aminotransferase 63 U/L (6-50); Albumin Level 4.4 g/dL (3.5-5.1); Alkaline Phosphatase 126 U/L (38-126); Anion Gap 11 mmol/L (8-16); Aspartate Amino Transferase 28 U/L (17-59); Bilirubin,Total 0.4 mg/dL (0.2-1.3); Blood Urea Nitrogen 25 mg/dL (9-20); Calcium 9.6 mg/dL (8.4-10.2); Carbon Dioxide 30 mmol/L (22-30); Chloride 100 mmol/L (98-107); Estimated CRCL calculation 59 ml/min; Estimated Glomerular Filt Rate 47; Glucose 99 mg/dL (65-110); Potassium 3.7 mmol/L (3.4-5.0); Sodium 141 mmol/L (137-145)
[2023-02-26 04:14] LABS: NT Pro B Type Natriuretic Pept 5070 pg/mL (19.9-100)
[2023-02-26 04:20] LABS: Troponin I 0.024 ng/mL (0.000-0.034)
[2023-02-26] MEDS: SODIUM CHLORIDE 0.9% IV 1,000 ML 999 ML IV CONT (04:33)
[2023-02-26 04:44] LABS: Lipase 658 U/L (23-300)
[2023-02-26] MEDS: BELLADONNA ALK/PHENOB ELIX 10 ML, MAG HYDROX/ALUMINUM HYD/SIMETH 30 ML, LIDOCAINE HCL 2... PO (06:12)
[2023-02-26 07:07] LABS: Troponin I 0.026 ng/mL (0.000-0.034)
== END 2023-02-26 07:25 | disposition home or self-care (01) ==
PROVIDERS: Emergency Provider Emergency Medicine; PCP Internal Medicine
DX: R07.2 Precordial pain (principal); I11.0 Hypertensive heart disease with heart failure; I50.9 Heart failure, unspecified; J44.9 Chronic obstructive pulmonary disease, unspecified; E11.9 Type 2 diabetes mellitus without complications; E78.2 Mixed hyperlipidemia; F79 Unspecified intellectual disabilities; G47.33 Obstructive sleep apnea (adult) (pediatric); F17.210 Nicotine dependence, cigarettes, uncomplicated; Z86.711 Personal history of pulmonary embolism; Z79.01 Long term (current) use of anticoagulants; Z79.84 Long term (current) use of oral hypoglycemic drugs; R00.0 Tachycardia, unspecified; I45.10 Unspecified right bundle-branch block; R94.31 Abnormal electrocardiogram [ECG] [EKG]
CPT/HCPCS: 36415; 71045; 80053; 83690; 83880; 84484; 85025; 85610; 85730; 93005; 96360; 99284; A9270; J7030

== ENCOUNTER 2023-02-27 20:38 | Observation (INO) | payer MEDICARE, MEDICAID, SELFPAY ==
--- NOTE | ~2023-02-27 | XR_ITS ---
EXAMINATION: XR chest 2V DATE: 02/27/2023 21:04 INDICATION: Chest pain. TECHNIQUE: Frontal and lateral views of the chest were obtained. COMPARISON: Chest single view 02/26/2023, chest CT 12/07/2022 FINDINGS: There is a diffuse interstitial pattern, consistent mild pulmonary edema. No pleural effusi on or pneumothorax. The heart size is normal. IMPRESSION: 1. Mild pulmonary edema. Reviewed, dictated and finalized at location A. IMPRESSION: 1. Mild pulmonary edema.
[2023-02-27 20:41] VITALS: BP 172/130; PULSE 97; RESP 17; TEMP 36.8; O2SAT 100
--- NOTE | 2023-02-27 20:44 | ECG_ITS ---
Measurements Intervals [place] Rate: 110 P: 18 WV: 144 QRS: -3 QRSD: 82 T: 126 QT: 352 QTc: 477 Interpretive Statements SINUS TACHYCARDIA POSSIBLE LEFT ATRIAL ENLARGEMENT INCOMPLETE RIGHT BUNDLE BRANCH BLOCK ST-T WAVE ABNORMALITY IN HIGH LATERAL LEADS- CONSIDER ISCHEMIA ABNORMAL ECG COMPARED TO ECG 02/26/2023 03:25:10 ST-T WAVE ABNORMALITY NOW PRESENT Electronically Signed On 02-28-2023 7:56:39 CDT by Saurabh Torres D.O.
[2023-02-27 21:02] LABS: Basophils Absolute Auto 0.1 K/mm3 (0.0-0.1); Eosinophils Absolute Auto 0.4 K/mm3 (0-0.3); Eosinophils Percent Auto 3.4 % (0-4.4); Hematocrit 38.1 % (42.0-52.0); Hemoglobin 12.3 g/dL (14.0-18.0); Immature Granulocyte Absolute 0.06 K/mm3 (0.00-0.031); Immature Granulocyte Percent A 0.6 % (0-0.5); Lymphocytes Absolute Auto 2.44 K/mm3 (0.9-3.2); Lymphocytes Percent Auto 23.2 % (18.3-44.2); Mean Corpuscular HGB Conc 32.3 g/dl (32-36); Mean Corpuscular Volume 89.9 fl (80-100); Mean Platelet Volume 11.3 fl (7.4-10.4); Monocytes Absolute Auto 0.6 K/mm3 (0.1-0.6); Monocytes Percent Auto 5.7 % (2.6-8.5); Neutrophils Absolute Auto 6.9 K/mm3 (1.3-6.7); Neutrophils Percent Auto 66.1 % (45.5-73.1); Platelet Count Result 368 k/mm3 (150-375); Red Blood Count 4.24 M/mm3 (4.6-6.20); Red Cell Distribution Width 14.5 % (11.5-14.5); White Blood Count 10.5 K/mm3 (4.5-10.0)
[2023-02-27 21:08] VITALS: BP 199/133; O2SAT 99
[2023-02-27 21:12] LABS: INR 0.9; Prothrombin Time 12.7 Seconds (11.1-14.7)
[2023-02-27] MEDS: hydrALAZINE HCL 20 MG/ML VIAL 10 MG IV PUSH (21:13)
[2023-02-27] MEDS: NITROGLYCERIN SL 0.4 MG TABLET SUBLINGUAL (21:13)
[2023-02-27 21:14] LABS: Alanine Aminotransferase 41 U/L (6-50); Albumin Level 4.4 g/dL (3.5-5.1); Alkaline Phosphatase 108 U/L (38-126); Anion Gap 9 mmol/L (8-16); Aspartate Amino Transferase 24 U/L (17-59); Bilirubin,Total 0.5 mg/dL (0.2-1.3); Blood Urea Nitrogen 19 mg/dL (9-20); Calcium 9.1 mg/dL (8.4-10.2); Carbon Dioxide 22 mmol/L (22-30); Chloride 109 mmol/L (98-107); Estimated CRCL calculation 85 ml/min; Estimated Glomerular Filt Rate > 60; Glucose 101 mg/dL (65-110); Lipase 290 U/L (23-300); Partial Thromboplastin Time 32.2 SECONDS (22.3-36.8); Potassium 3.8 mmol/L (3.4-5.0); Sodium 140 mmol/L (137-145)
[2023-02-27 21:19] VITALS: BP 191/112; PULSE 106; RESP 29; O2SAT 97
[2023-02-27 21:26] LABS: Troponin I 0.032 ng/mL (0.000-0.034)
--- NOTE | 2023-02-27 21:30 | ED.GENADULT ---
HPI - General Adult General Chief complaint: Chest Pain Stated complaint: chest pain Time Seen by Provider: 02/27/23 20:59 History of Present Illness HPI narrative: Patient 42-year-old gentleman who presents the emergency department with chief complaint of shortness of breath and chest discomfort. Patient reports that he has history of congestive heart failure also history of extremely poorly controlled hypertension. Patient reports that he was admitted to the hospital and then was seen in the emergency department a couple of days ago the patient states that he has continued to have chest pain and reports that his blood pressure has been significantly elevated and reports that symptoms or not improved by anything. Related Data Home Medications Medication Instructions Recorded Confirmed atorvastatin 40 mg tablet 40 mg PO DAILY 12/06/22 02/19/23 rivaroxaban 20 mg tablet (Xarelto) 20 mg PO HS 12/06/22 02/19/23 albuterol 90 mcg/actuation aerosol See Rx Instructions .Route 12/24/22 02/19/23 inhaler .COMPLEX PRN Shortness Of Breath Or Wheezing Allergies Allergy/AdvReac Type Severity Reaction Status Date / Time iodine Allergy Unknown Unknown Verified 02/27/23 20:52 Contrast Media Allergy Unknown Unknown Uncoded 02/27/23 20:52 Review of Systems Review of Systems: A 10 system review of systems was completed on the patient and is negative except for what is stated in the HPI. Nursing and ancillary documentation was reviewed. 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 Type 2 diabetes mellitus Surgical History Surgical History H/O right inguinal hernia repair Status post open reduction with internal fixation of fracture Right ankle Family History Family History Father Congestive heart failure Hypertension Acute myocardial infarction Diabetes mellitus Sibling Congestive heart failure Hypertension Diabetes mellitus Sibling History of blood clots Diabetes mellitus Sibling History of blood clots Diabetes mellitus Mother Chronic obstructive pulmonary disease Diabetes mellitus Sibling Diabetes mellitus Sibling Diabetes mellitus Sibling Diabetes mellitus Sibling Diabetes mellitus Sibling Diabetes mellitus Social History Social History Social History: He lives in a mobile home that does not have an hot water heater. He lives with his fiancee and her 13-year-old nephew. He he is on disability due to his intellectual disability. He has smoked as much as 2 packs cigarettes per day but has cut back to 1-2 cigarettes per day since October 2022. He used to be an alcoholic in drink a case of beer a day but stopped drinking alcohol in 2019. He used to smoke marijuana but has not done so since he was diagnosed with heart failure. He denies any other illicit substance use. He used to also cut and has associated scars on his forearms. They have 3 dogs and 3 cats. Code status: Full code Surrogate decision maker: Fred Marshall (significant other) Smoking packs per day: 2 Smoking cigarettes per day: 40.0 Years smoked: 30 Smoking pack-years: 60.00 Smoking status: Current every day smoker Tobacco type: cigarettes Second hand tobacco smoke exposure: No Additional smoking assessment comments: in the past year states he has cut back from smoking 2 packs/day Alcohol intake: for
[2023-02-27 21:34] LABS: NT Pro B Type Natriuretic Pept 7020 pg/mL (19.9-100)
--- NOTE | 2023-02-27 21:45 | PC.NURSE ---
2nd nitro SL given
--- NOTE | 2023-02-27 21:53 | PC.NURSE ---
3rd dose of nitro given
[2023-02-27 22:16] VITALS: BP 184/98; PULSE 96
--- NOTE | 2023-02-27 22:19 | PM.IMHP ---
H&P: HPI History of Present Illness Date/Time: 02/27/23 22:19 Chief Complaint: Chest pain Narrative: This is a 42-year-old male with past medical history significant for tobacco dependence patient used to smoke 2 packs of cigarettes daily now is down to 2 cigarettes daily, congestive heart failure, grade 1 diastolic heart failure, COPD/emphysema, hypertension. Patient presents to the emergency room due to chest pain localized to the retrosternal area nonradiating in emergency room patient was found to have a systolic blood pressure in the 200s and diastolic in the 100's. Patient denies any PND, orthopnea, leg swelling, ankle swelling, pedal swelling, nausea, vomiting, lightheadedness, dizziness has had a blurry vision this has been ongoing now for few days. Noted shortness of breath with minimal exertion walking in the house from his room to the bathroom, patient had been to the emergency room the day prior to today where he was treated and sent home to return today. Preliminary workup was significant for brain natriuretic peptide upwards 7000 a chest x-ray was reported as: EXAMINATION: XR chest 2V DATE: 02/27/2023 21:04 INDICATION: Chest pain. TECHNIQUE: Frontal and lateral views of the chest were obtained. COMPARISON: Chest single view 02/26/2023, chest CT 12/07/2022 FINDINGS: There is a diffuse interstitial pattern, consistent mild pulmonary edema. No pleural effusion or pneumothorax. The heart size is normal. IMPRESSION: 1. Mild pulmonary edema. EKG SINUS TACHYCARDIA POSSIBLE LEFT ATRIAL ENLARGEMENT [-0.1mV P WAVE IN V1/V2] POSSIBLE RIGHT VENTRICULAR CONDUCTION DELAY [RSR (QR) IN V1/V2] NONSPECIFIC ST & T-WAVE ABNORMALITY COMPARED TO ECG 02/26/2023 03:25:10 T-WAVE ABNORMALITY NOW PRESENT Review of Systems Review of Systems: Shortness of breath, chest pain, uncontrolled blood pressure, blurry vision. Constitutional: Constitutional: Denies chills, Denies fever(s), Denies malaise, Denies night sweats, Denies poor appetite and Denies weakness Eyes: Eyes: Reports blurry vision ENT: Denies dysphagia, Denies vertigo, Denies dizziness and Denies odynophagia Cardiovascular: Cardiovascular: Reports chest pain, Denies syncope, Denies rapid heart rate, Denies pedal edema, Denies irregular heart rhythm, Denies leg edema, Denies lightheadedness, Denies palpitations and Reports dyspnea on exertion Respiratory: Respiratory: Denies chest congestion, Denies cough, Reports dyspnea and Reports dyspnea on exertion Gastrointestinal: Gastrointestinal: Denies abdominal pain, Denies dyspepsia, Denies heartburn, Denies diarrhea, Denies nausea and Denies vomiting Genitourinary: Genitourinary: Reports no additional male genitourinary complaints and Reports as per HPI Musculoskeletal: Musculoskeletal: Denies back pain, Denies myalgias, Denies joint swelling and Denies muscle weakness Integumentary/Breasts: Skin/Breast: Denies rash Neurologic: Denies abnormal gait, Denies vertigo, Denies dizziness, Denies focal weakness and Denies Sensory deficit (Neuro) Psychiatric: Psychiatric: Reports no additional psychiatric complaints and Reports as per HPI Endocrine: Endocrine: Denies cold intolerance, Denies flushing, Denies heat intolerance, Denies polyphagia, Denies polydipsia and Denies palpitations Hematologic/Lymphatic: Hematologic/Lymphatic: Reports no additional hematologic/lymphatic complaints and Reports as per HPI Allergic/Immunologic: Allergic/Immunologic: Reports no additional allergic/immunologic complaints and Reports as per HPI PMFSH Past Medical History Medical History (Updated 02/28/23 @ 02:16 by Edyta Mosley MD) Alcoholism in recovery Benign essential hypertension Bipolar 1 disorder, depressed COPD with asthma Hypertensive emergency Malignant tumor, spindle cell type Mixed hyperlipidemia Nicotine abuse Obstructive sleep apnea Personal history of pulmonary embolism PTSD (post-traumatic stress disorder) Spindle cell carc
[2023-02-27 22:31] VITALS: BP 180/116; PULSE 102
[2023-02-27] MEDS: MORPHINE SULFATE (*CRX) 4 MG/ML INJ IV PUSH (22:35)
[2023-02-27 23:30] VITALS: BP 178/106; PULSE 96; RESP 18; O2SAT 97
--- NOTE | 2023-02-27 23:58 | PC.NURSE ---
This patient, Enrike Dhaliwal, was admitted to IMU Room 206-02. Patient/family oriented to hospital policies and general routines including ID bracelet, bed and alarms, visiting hours, pain management, procedures, bathroom and other care routines, personal items, smoking policy, room service/diet, and visiting hours. Information on how to activate the Rapid Response Team has been discussed. Patient/Family are encouraged to report perceived risks to care and to ask questions if they do not understand what they are told or what they should do.
[2023-02-28] VITALS (15 sets, daily range): BP systolic 127–206; BP diastolic 60–123; PULSE 74–104; RESP 18–22; TEMP 36–37; O2SAT 93–100; BMI 41.8
[2023-02-28] MEDS: NIFEdipine 30 MG TAB.ER.24 PO (00:58)
[2023-02-28] MEDS: cloNIDine HCL 0.1 MG TABLET PO ×3 (00:58→20:40)
[2023-02-28] MEDS: FUROSEMIDE INJ 40 MG/4 ML VIAL IV PUSH ×3 (00:59→20:39)
[2023-02-28 02:09] LABS: Troponin I 0.036 ng/mL (0.000-0.034)
[2023-02-28 04:02] LABS: Troponin I 0.035 ng/mL (0.000-0.034)
[2023-02-28] MEDS: hydrALAZINE HCL 20 MG/ML VIAL 10 MG IV PUSH (06:13)
[2023-02-28] MEDS: UMECLIDINIUM BROMIDE 62.5 MCG ELLIPTA 1 PUFF INHALATION (08:13)
[2023-02-28] MEDS: NIFEdipine 30 MG TAB.ER.24 60 MG PO (08:49)
[2023-02-28] MEDS: lisinopriL 20 MG TABLET 40 MG PO (08:49)
[2023-02-28] MEDS: SPIRONOLACTONE 25 MG TABLET PO (08:50)
[2023-02-28] MEDS: ACETAMINOPHEN 325 MG TABLET 650 MG PO (08:51)
[2023-02-28] MEDS: ATORVASTATIN 40 MG TABLET PO (08:51)
[2023-02-28 10:56] LABS: Glucose Point of Care 118 mg/dl (65-105)
--- NOTE | 2023-02-28 11:08 | PM.IMPN ---
Progress Note: A&P Assessment and Plan (1) Hypertensive emergency: Code(s): I16.1 - Hypertensive emergency Status: Acute Assessment and Plan: Admit to IMU Restart home meds Permissive hypertension Continue to monitor Supportive care (2) Chest pain: Qualifiers: Chest pain type: unspecified Qualified Code(s): R07.9 - Chest pain, unspecified Code(s): R07.9 - Chest pain, unspecified Status: Acute Assessment and Plan: Likely secondary to uncontrolled hypertension Supportive care Troponins in progress EKG reviewed (3) Acute exacerbation of CHF (congestive heart failure): Qualifiers: Heart failure type: diastolic Qualified Code(s): I50.33 - Acute on chronic diastolic (congestive) heart failure Code(s): I50.9 - Heart failure, unspecified Status: Acute Assessment and Plan: Diurese as needed Daily intake and output Free water restricted to 1800 cc daily Heart healthy diet sodium restricted Echocardiogram 12/07/22 1. Left ventricular chamber dimension is normal. ? 2. Definity contrast administered improved wall motion interpretation. ? 3. Left ventricular systolic function is normal, estimated at 60-65%. ? 4. There is mildly increased left ventricular wall thickness. ? 5. The left ventricular diastolic function is grade I diastolic dysfunction. ? 6. E/e' 14 is mildly elevated. ? 7. There is trace mitral valve regurgitation. ? 8. No pulmonary hypertension, estimated pulmonary arterial systolic pressure is 34 mmHg. (4) COPD with asthma: Code(s): J44.9 - Chronic obstructive pulmonary disease, unspecified Status: Acute Assessment and Plan: Breathing treatments q.6 (5) Tobacco dependence: Code(s): F17.200 - Nicotine dependence, unspecified, uncomplicated Status: Acute Assessment and Plan: Nicotine patch as needed (6) Type 2 diabetes mellitus: Qualifiers: Diabetes mellitus half-way insulin use: without director long term care use Diabetes mellitus complication status: with neurologic complications Diabetes mellitus complication detail: with polyneuropathy Qualified Code(s): E11.42 - Type 2 diabetes mellitus with diabetic polyneuropathy Code(s): E11.9 - Type 2 diabetes mellitus without complications Status: Acute Assessment and Plan: Holding metformin Accu-Cheks AC and HS Insulin sliding scale as needed (7) Alcoholism in recovery: Code(s): F10.21 - Alcohol dependence, in remission Status: Acute Assessment and Plan: Follow-up in the outpatient setting Subjective Date/time seen: 02/28/23 11:08 Interval history: Doing okay, blood pressure is elevated still. Exam Narrative: Patient is sitting in a stretcher Const: General: well developed, alert, awake, in distress mild, uncomfortable, average body habitus and obese Nutritional Appearance: average body habitus and obese Orientation/consciousness: patient oriented x3 HENMT: Head: normal to inspection, normocephalic and atraumatic Ears: hearing grossly normal bilaterally Face/Nose/Sinus: normal facial exam Face and sinus: normal facial exam Eyes: General: appearance normal, both eyes and all related structures Pupils: Equal, round and reactive pupils present EOM: EOMs intact bilaterally Neck: Neck: full ROM, no lymphadenopathy and no JVD Thyroid: thyroid normal Lymphatic: no lymphadenopathy noted Resp: Effort & Inspection: normal respiratory effort, able to speak in complete sentences, no cough and tachypneic Auscultation: clear to auscultation bilaterally Cardio: Jugular venous distension: no JVD Rate: regular rate Rhythm: regular rhythm Heart sounds: S1 normal heart sound present and S2 normal heart sound present GI: Inspection: Pannus present and obesity : General: Yes deferred Skin: Rashes: no rashes Wounds: no wounds Neuro: General: patient oriented x3, CN's II-XI intact bilaterally
[2023-02-28 12:13] LABS: Glucose Point of Care 126 mg/dl (65-105)
[2023-02-28] MEDS: INSULIN ASPART (*BKC) 100 UNITS/ML 6 UNITS SUB-Q (16:47)
[2023-02-28] MEDS: RIVAROXABAN 20 MG TABLET PO (16:47)
[2023-02-28 16:58] LABS: Glucose Point of Care 110 mg/dl (65-105)
[2023-02-28 20:25] LABS: Glucose Point of Care 93 mg/dl (65-105)
[2023-03-01] VITALS (7 sets, daily range): BP systolic 147–151; BP diastolic 81–99; PULSE 74–104; RESP 18–20; TEMP 36.6; O2SAT 98–99
[2023-03-01 08:16] LABS: Glucose Point of Care 106 mg/dl (65-105)
[2023-03-01] MEDS: lisinopriL 20 MG TABLET 40 MG PO (08:40)
[2023-03-01] MEDS: ATORVASTATIN 40 MG TABLET PO (08:40)
[2023-03-01] MEDS: cloNIDine HCL 0.1 MG TABLET PO (08:40)
[2023-03-01] MEDS: SPIRONOLACTONE 25 MG TABLET PO (08:40)
[2023-03-01] MEDS: INSULIN ASPART (*BKC) 100 UNITS/ML 6 UNITS SUB-Q (08:41)
[2023-03-01] MEDS: NIFEdipine 30 MG TAB.ER.24 60 MG PO (08:41)
[2023-03-01] MEDS: FUROSEMIDE INJ 40 MG/4 ML VIAL IV PUSH (08:49)
[2023-03-01] MEDS: UMECLIDINIUM BROMIDE 62.5 MCG ELLIPTA 1 PUFF INHALATION (09:29)
--- NOTE | 2023-03-01 10:29 | PM.DS ---
DS: Admitting Diagnosis Discharge Date March 01, 2023 Admitting Diagnosis Hypertension DS: Discharge Diagnosis Discharge Diagnosis (1) Hypertensive emergency: Code(s): I16.1 - Hypertensive emergency Status: Acute Assessment and Plan: Admit to IMU Restart home meds Permissive hypertension Continue to monitor Supportive care (2) Chest pain: Qualifiers: Chest pain type: unspecified Qualified Code(s): R07.9 - Chest pain, unspecified Code(s): R07.9 - Chest pain, unspecified Status: Acute Assessment and Plan: Likely secondary to uncontrolled hypertension Supportive care Troponins in progress EKG reviewed (3) Acute exacerbation of CHF (congestive heart failure): Qualifiers: Heart failure type: diastolic Qualified Code(s): I50.33 - Acute on chronic diastolic (congestive) heart failure Code(s): I50.9 - Heart failure, unspecified Status: Acute Assessment and Plan: Diurese as needed Daily intake and output Free water restricted to 1800 cc daily Heart healthy diet sodium restricted Echocardiogram 12/07/22 1. Left ventricular chamber dimension is normal. ? 2. Definity contrast administered improved wall motion interpretation. ? 3. Left ventricular systolic function is normal, estimated at 60-65%. ? 4. There is mildly increased left ventricular wall thickness. ? 5. The left ventricular diastolic function is grade I diastolic dysfunction. ? 6. E/e' 14 is mildly elevated. ? 7. There is trace mitral valve regurgitation. ? 8. No pulmonary hypertension, estimated pulmonary arterial systolic pressure is 34 mmHg. (4) COPD with asthma: Code(s): J44.9 - Chronic obstructive pulmonary disease, unspecified Status: Acute Assessment and Plan: Breathing treatments q.6 (5) Tobacco dependence: Code(s): F17.200 - Nicotine dependence, unspecified, uncomplicated Status: Acute Assessment and Plan: Nicotine patch as needed (6) Type 2 diabetes mellitus: Qualifiers: Diabetes mellitus terminal computer operator insulin use: without terminal computer operator use Diabetes mellitus complication status: with neurologic complications Diabetes mellitus complication detail: with polyneuropathy Qualified Code(s): E11.42 - Type 2 diabetes mellitus with diabetic polyneuropathy Code(s): E11.9 - Type 2 diabetes mellitus without complications Status: Acute Assessment and Plan: Holding metformin Accu-Cheks AC and HS Insulin sliding scale as needed (7) Alcoholism in recovery: Code(s): F10.21 - Alcohol dependence, in remission Status: Acute Assessment and Plan: Follow-up in the outpatient setting DS: Summary Hospital Course Hospital Course: Admitted for hypertensive urgency. Secondary noncompliance. Recent medications and blood pressures improved. Encourage compliance. Patient can be discharged Time Spent with Patient Time attestation: Total time spent providing and/or coordinating discharge services: Exam Narrative: Patient is sitting in a stretcher Const: General: well developed, alert, awake, in distress mild, uncomfortable, average body habitus and obese Nutritional Appearance: average body habitus and obese Orientation/consciousness: patient oriented x3 HENMT: Head: normal to inspection, normocephalic and atraumatic Ears: hearing grossly normal bilaterally Face/Nose/Sinus: normal facial exam Face and sinus: normal facial exam Eyes: General: appearance normal, both eyes and all related structures Pupils: Equal, round and reactive pupils present EOM: EOMs intact bilaterally Neck: Neck: full ROM, no lymphadenopathy and no JVD Thyroid: thyroid normal Lymphatic: no lymphadenopathy noted Resp: Effort & Inspection: normal respiratory effort, able to speak in complete sentences, no cough and tachypneic Auscultation: clear to auscultation bilaterally Cardio: Jugular venous distension: no JVD Rate:
== END 2023-03-01 11:52 | disposition home or self-care (01) ==
LOC: ANHED 22:27 → ANHIMU 23:33
PROVIDERS: Admitting Provider Internal Medicine; Emergency Provider Emergency Medicine; PCP Internal Medicine; Visit Provider Chiropractor
DX: I16.1 Hypertensive emergency (principal); R07.89 Other chest pain; R06.02 Shortness of breath; I11.0 Hypertensive heart disease with heart failure; I50.33 Acute on chronic diastolic (congestive) heart failure; J44.9 Chronic obstructive pulmonary disease, unspecified; E11.42 Type 2 diabetes mellitus with diabetic polyneuropathy; F31.9 Bipolar disorder, unspecified; E78.5 Hyperlipidemia, unspecified; F43.10 Post-traumatic stress disorder, unspecified; R00.0 Tachycardia, unspecified; F79 Unspecified intellectual disabilities; F10.21 Alcohol dependence, in remission; J81.1 Chronic pulmonary edema; F17.210 Nicotine dependence, cigarettes, uncomplicated; Z85.828 Personal history of other malignant neoplasm of skin; Z86.711 Personal history of pulmonary embolism; Z79.01 Long term (current) use of anticoagulants; Z79.84 Long term (current) use of oral hypoglycemic drugs; Z79.51 Long term (current) use of inhaled steroids; Z82.49 Family history of ischemic heart disease and other diseases of the circulatory system; Z83.6 Family history of other diseases of the respiratory system
CPT/HCPCS: 36415; 71046; 80053; 82948; 83690; 83880; 84484; 85025; 85610; 85730; 93005; 94640; 96374; 96375; 96376; 99285; A9270; G0378; J0360; J1815; J1940; J2270

== ENCOUNTER 2023-03-13 20:18 | Observation (INO) | payer MEDICARE, MEDICAID, SELFPAY ==
[2023-03-13] VITALS (18 sets, daily range): BP systolic 183–190; BP diastolic 117–132; PULSE 90–113; RESP 11–25; TEMP 36.6; O2SAT 98–100
--- NOTE | ~2023-03-13 | XR_ITS ---
EXAMINATION: XR chest 2V Exam Date/Time: 03/13/2023 20:32 CDT HISTORY: chest pain Comparison: 02/27/2023. RESULT: Lines, tubes, and devices: None. Lungs and pleura: Mild diffuse reticular opacities with indistinct vessels. Streaky bibasilar opacit ies, without focal consolidation. Cardiomediastinal silhouette: Stable. Other: No acute osseous or upper abdominal finding. IMPRESSION: Mild interstitial edema. Bibasilar scar/atelectasis. Reviewed, dictated and finalized at location K.
--- NOTE | 2023-03-13 20:18 | ECG_ITS ---
Measurements Intervals [place] Rate: 107 P: 41 [place]: 136 QRS: 12 QRSD: 92 T: 73 QT: 345 QTc: 462 Interpretive Statements SINUS TACHYCARDIA POSSIBLE LEFT ATRIAL ENLARGEMENT INCOMPLETE RIGHT BUNDLE BRANCH BLOCK NONSPECIFIC ST & T-WAVE ABNORMALITY- HIGH LATERAL LEADS BASELINE ARTIFACT- I, II, III, AVR, AVL, AVF, V1 ABNORMAL ECG COMPARED TO ECG 02/27/2023 20:49:47 NO SIGNIFICANT CHANGES Electronically Signed On 03-13-2023 21:45:51 CDT by Saurabh Torres D.O.
[2023-03-13 20:47] LABS: Basophils Absolute Auto 0.1 K/mm3 (0.0-0.1); Basophils Percent Auto 0.9 % (0.2-1.2); Eosinophils Absolute Auto 0.4 K/mm3 (0-0.3); Eosinophils Percent Auto 3.2 % (0-4.4); Hematocrit 39.6 % (42.0-52.0); Hemoglobin 13.3 g/dL (14.0-18.0); Immature Granulocyte Absolute 0.06 K/mm3 (0.00-0.031); Immature Granulocyte Percent A 0.5 % (0-0.5); Lymphocytes Absolute Auto 2.01 K/mm3 (0.9-3.2); Lymphocytes Percent Auto 18.3 % (18.3-44.2); Mean Corpuscular HGB Conc 33.6 g/dl (32-36); Mean Corpuscular Hemoglobin 29.2 pg (26-34); Mean Corpuscular Volume 86.8 fl (80-100); Mean Platelet Volume 11.8 fl (7.4-10.4); Monocytes Absolute Auto 0.7 K/mm3 (0.1-0.6); Monocytes Percent Auto 6.4 % (2.6-8.5); Neutrophils Absolute Auto 7.7 K/mm3 (1.3-6.7); Neutrophils Percent Auto 70.7 % (45.5-73.1); Platelet Count Result 276 k/mm3 (150-375); Red Blood Count 4.56 M/mm3 (4.6-6.20); Red Cell Distribution Width 14.5 % (11.5-14.5)
[2023-03-13 20:57] LABS: Alanine Aminotransferase 98 U/L (6-50); Albumin Level 4.8 g/dL (3.5-5.1); Alkaline Phosphatase 118 U/L (38-126); Anion Gap 11 mmol/L (8-16); Aspartate Amino Transferase 40 U/L (17-59); Bilirubin,Total 0.7 mg/dL (0.2-1.3); Blood Urea Nitrogen 15 mg/dL (9-20); Calcium 9.4 mg/dL (8.4-10.2); Carbon Dioxide 25 mmol/L (22-30); Chloride 104 mmol/L (98-107); Estimated CRCL calculation 78 ml/min; Estimated Glomerular Filt Rate > 60; Glucose 108 mg/dL (65-110); Lipase 178 U/L (23-300); Potassium 3.3 mmol/L (3.4-5.0); Prothrombin Time 13.2 Seconds (11.1-14.7); Sodium 140 mmol/L (137-145)
[2023-03-13 20:58] LABS: Partial Thromboplastin Time 32.9 SECONDS (22.3-36.8)
[2023-03-13 21:09] LABS: Troponin I 0.014 ng/mL (0.000-0.034)
[2023-03-13 21:53] LABS: NT Pro B Type Natriuretic Pept 14900 pg/mL (19.9-100)
[2023-03-13] MEDS: FUROSEMIDE INJ 40 MG/4 ML VIAL IV PUSH (22:26)
--- NOTE | 2023-03-13 22:53 | PM.IMHP ---
H&P: HPI History of Present Illness Date/Time: 03/13/23 22:53 Chief Complaint: chest pain Narrative: A 42-year-old male with past medical history significant for tobacco dependence, hypertension, obesity, diastolic heart failure. patient presents to the emergency room due to chest pain the working up from his sleep localized to the retrosternal nonradiating, shortness of breath, cough which is nonproductive patient has been sleeping in his recliner patient denies any syncope, near syncope, leg swelling, he decided to quit cold turkey his tobacco use the day before. Emergency room patient was found to have a systolic blood pressure in the 190's with diastolic in the 100s. at the time of my visit patient denied any chest pain. Preliminary workup was significant for a brain natriuretic peptide of 14,900. A chest x-ray was reported as: EXAMINATION:? XR chest 2V Exam Date/Time:? 03/13/2023 20:32 CDT HISTORY: chest pain ? Comparison:? 02/27/2023. RESULT: Lines, tubes, and devices:? None. Lungs and pleura:? Mild diffuse reticular opacities with indistinct vessels. Streaky bibasilar opacities, without focal consolidation. Cardiomediastinal silhouette:? Stable. Other:? No acute osseous or upper abdominal finding. ? IMPRESSION: Mild interstitial edema. Bibasilar scar/atelectasis. patient is been placed in observation for further evaluation management and treatment. Review of Systems Review of Systems: , shortness of breath, chest pain, dry cough. Constitutional: Constitutional: Denies chills, Denies fatigue, Denies fever(s), Denies frequent falls, Denies headache(s), Denies malaise, Denies night sweats, Denies poor appetite and Denies weakness Eyes: Eyes: Denies change in vision ENT: Denies dysphagia and Denies odynophagia Cardiovascular: Cardiovascular: Reports chest pain, Denies leg edema, Denies lightheadedness, Denies radiating jaw, neck or arm pain, Denies palpitations, Reports dyspnea, Reports orthopnea and Reports paroxysmal nocturnal dyspnea Respiratory: Respiratory: Denies chest congestion and Reports cough Gastrointestinal: Gastrointestinal: Denies abdominal pain, Denies dyspepsia, Denies heartburn, Denies diarrhea, Denies nausea and Denies vomiting Genitourinary: Genitourinary: Reports no additional male genitourinary complaints and Reports as per HPI Musculoskeletal: Musculoskeletal: Reports back pain, Denies myalgias, Denies arthralgias and Denies limited range of motion Integumentary/Breasts: Skin/Breast: Denies rash Neurologic: Denies focal weakness and Denies Sensory deficit (Neuro) Psychiatric: Psychiatric: Reports no additional psychiatric complaints and Reports as per HPI Endocrine: Endocrine: Reports no additional endocrine complaints and Reports as per HPI Hematologic/Lymphatic: Hematologic/Lymphatic: Reports no additional hematologic/lymphatic complaints and Reports as per HPI Allergic/Immunologic: Allergic/Immunologic: Reports no additional allergic/immunologic complaints and Reports as per HPI PMFSH Past Medical History Medical History (Updated 03/13/23 @ 23:03 by Ben Austin MD) Alcoholism in recovery Benign essential hypertension Bipolar 1 disorder, depressed COPD with asthma Hypertensive emergency Malignant tumor, spindle cell type Mixed hyperlipidemia Nicotine abuse Obstructive sleep apnea Personal history of pulmonary embolism PTSD (post-traumatic stress disorder) 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
--- NOTE | 2023-03-13 22:56 | ED.GENADULT ---
HPI - General Adult General Chief complaint: Chest Pain Stated complaint: cp Time Seen by Provider: 03/13/23 20:48 History of Present Illness HPI narrative: Patient is a 42-year-old female that presents the emergency department with chief complaint of chest pain and shortness of breath. Patient reports that he has history of congestive heart failure reports that he has been in the hospital recently for heart failure exacerbation the patient states that he has been having to sleep in a recliner and reports that his been getting more short of breath. Patient states that he had a tightness feeling in his chest and noticed his blood pressure is also elevated. The patient reports this feels exactly like when he had CHF exacerbations. Related Data Home Medications Medication Instructions Recorded Confirmed albuterol 90 mcg/actuation aerosol See Rx Instructions .Route 12/24/22 02/28/23 inhaler .COMPLEX PRN Shortness Of Breath Or Wheezing Allergies Allergy/AdvReac Type Severity Reaction Status Date / Time iodine Allergy Unknown Unknown Verified 03/13/23 20:23 Contrast Media Allergy Unknown Unknown Uncoded 03/13/23 20:23 Review of Systems Review of Systems: A 10 system review of systems was completed on the patient and is negative except for what is stated in the HPI. Nursing and ancillary documentation was reviewed. 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 Type 2 diabetes mellitus Surgical History Surgical History H/O right inguinal hernia repair Status post open reduction with internal fixation of fracture Right ankle Family History Family History Father Congestive heart failure Hypertension Acute myocardial infarction Diabetes mellitus Sibling Congestive heart failure Hypertension Diabetes mellitus Sibling History of blood clots Diabetes mellitus Sibling History of blood clots Diabetes mellitus Mother Chronic obstructive pulmonary disease Diabetes mellitus Sibling Diabetes mellitus Sibling Diabetes mellitus Sibling Diabetes mellitus Sibling Diabetes mellitus Sibling Diabetes mellitus Social History Social History Social History: He lives in a mobile home that does not have an hot water heater. He lives with his fileodane and her 13-year-old nephew. He he is on disability due to his intellectual disability. He has smoked as much as 2 packs cigarettes per day but has cut back to 1-2 cigarettes per day since October 2022. He used to be an alcoholic in drink a case of beer a day but stopped drinking alcohol in 2019. He used to smoke marijuana but has not done so since he was diagnosed with heart failure. He denies any other illicit substance use. He used to also cut and has associated scars on his forearms. They have 3 dogs and 3 cats. Code status: Full code Surrogate decision maker: Fred Marshall (significant other) Smoking packs per day: 0.1 Smoking cigarettes per day: 2.0 Years smoked: 30 Smoking pack-years: 3.00 Smoking status: Light tobacco smoker Tobacco type: cigarettes Second hand tobacco smoke exposure: Yes Additional smoking assessment comments: cut down from 2 packs 3 months ago Alcohol intake: former Drinks per week: 0 Substance use: former Substance use type: marijuana Lack of Transportation: No Lack
[2023-03-13] MEDS: hydrALAZINE HCL 20 MG/ML VIAL 10 MG IV PUSH (23:00)
--- NOTE | 2023-03-13 23:41 | PC.NURSE ---
Addendum entered by Sridevi Gasca RN 03/14/23 01:36: Pt arrived to IMU at 0021 03/14/23 Original Note: This patient, Enrike Dhaliwal, was admitted to IMU Room 201-01. Patient/family oriented to hospital policies and general routines including ID bracelet, bed and alarms, visiting hours, pain management, procedures, bathroom and other care routines, personal items, smoking policy, room service/diet, and visiting hours. Information on how to activate the Rapid Response Team has been discussed. Patient/Family are encouraged to report perceived risks to care and to ask questions if they do not understand what they are told or what they should do.
[2023-03-13 23:56] LABS: Troponin I 0.018 ng/mL (0.000-0.034)
[2023-03-14] VITALS (21 sets, daily range): BP systolic 118–198; BP diastolic 70–125; PULSE 84–110; RESP 16–20; TEMP 36.2–36.9; O2SAT 96–100; BMI 38.4
[2023-03-14] MEDS: cloNIDine HCL 0.1 MG TABLET PO ×3 (01:28→20:14)
[2023-03-14 03:24] LABS: Troponin I 0.018 ng/mL (0.000-0.034)
[2023-03-14] MEDS: NIFEdipine 30 MG TAB.ER.24 60 MG PO (05:45)
[2023-03-14] MEDS: lisinopriL 20 MG TABLET 40 MG PO (05:45)
[2023-03-14 07:48] LABS: Glucose Point of Care 97 mg/dl (65-105)
[2023-03-14] MEDS: ASPIRIN 81 MG CHEWABLE TABLET PO (08:58)
[2023-03-14] MEDS: ATORVASTATIN 40 MG TABLET PO (08:58)
[2023-03-14] MEDS: FUROSEMIDE INJ 40 MG/4 ML VIAL IV PUSH ×2 (08:58→16:53)
[2023-03-14] MEDS: NICOTINE (*PBKC) 21 MG PATCH 1 PATCH TRANSDERM (08:58)
[2023-03-14] MEDS: SPIRONOLACTONE 50 MG TABLET PO (10:51)
[2023-03-14] MEDS: NIFEdipine 30 MG TAB.ER.24 90 MG PO (10:51)
--- NOTE | 2023-03-14 11:26 | PM.IMPN ---
Progress Note: A&P Assessment and Plan (1) Chest pain: Qualifiers: Chest pain type: unspecified Qualified Code(s): R07.9 - Chest pain, unspecified Code(s): R07.9 - Chest pain, unspecified Status: Acute Assessment and Plan: admit to IMU continuous telemetry continuous pulse ox cautious normalization of blood pressure restart home meds troponins x2 negative ECG SINUS TACHYCARDIA POSSIBLE LEFT ATRIAL ENLARGEMENT INCOMPLETE RIGHT BUNDLE BRANCH BLOCK NONSPECIFIC ST & T-WAVE ABNORMALITY- HIGH LATERAL LEADS BASELINE ARTIFACT- I, II, III, AVR, AVL, AVF, V1 ABNORMAL ECG COMPARED TO ECG 02/27/2023 20:49:47 NO SIGNIFICANT CHANGES Electronically Signed On (2) Acute exacerbation of CHF (congestive heart failure): Qualifiers: Heart failure type: diastolic Qualified Code(s): I50.33 - Acute on chronic diastolic (congestive) heart failure Code(s): I50.9 - Heart failure, unspecified Status: Acute Assessment and Plan: aggressive diuresis daily Strict input and output daily weights 2 g sodium restricted diet 1500 free fluid restricted diet Summary ? 1. Left ventricular chamber dimension is normal. ? 2. Definity contrast administered improved wall motion interpretation. ? 3. Left ventricular systolic function is normal, estimated at 60-65%. ? 4. There is mildly increased left ventricular wall thickness. ? 5. The left ventricular diastolic function is grade I diastolic dysfunction. ? 6. E/e' 14 is mildly elevated. ? 7. There is trace mitral valve regurgitation. ? 8. No pulmonary hypertension, estimated pulmonary arterial systolic pressure is 34 mmHg. Left Ventricle ? E/e' 14 is mildly elevated. ? Definity contrast administered improved wall motion interpretation. ? Left ventricular chamber dimension is normal. ? Left ventricular systolic function is normal, estimated at 60-65%. ? There is mildly increased left ventricular wall thickness. ? The left ventricular diastolic function is grade I diastolic dysfunction. (3) Alcoholism in recovery: Code(s): F10.21 - Alcohol dependence, in remission Status: Acute Assessment and Plan: patient has remained abstinent (4) Hypertensive emergency: Code(s): I16.1 - Hypertensive emergency Status: Acute Assessment and Plan: restart home meds continue to monitor cautious normalization of blood pressure (5) Obstructive sleep apnea: Code(s): G47.33 - Obstructive sleep apnea (adult) (pediatric) Status: Acute Assessment and Plan: CPAP at nighttime (6) Type 2 diabetes mellitus: Qualifiers: Diabetes mellitus usp insulin use: without heliotherapist use Diabetes mellitus complication status: with neurologic complications Diabetes mellitus complication detail: with polyneuropathy Qualified Code(s): E11.42 - Type 2 diabetes mellitus with diabetic polyneuropathy Code(s): E11.9 - Type 2 diabetes mellitus without complications Status: Acute Assessment and Plan: holding metformin insulin sliding scale as no (7) COPD with asthma: Code(s): J44.9 - Chronic obstructive pulmonary disease, unspecified Status: Acute Assessment and Plan: not actively wheezing continue Ellipta albuterol nebs as needed p.r.n. (8) Tobacco dependence: Code(s): F17.200 - Nicotine dependence, unspecified, uncomplicated Status: Acute Assessment and Plan: patient quit cold turkey the day before nicotine patch as needed Subjective Date/time seen: 03/14/23 11:26 Interval history: no complaints Exam Narrative: patient is sitting semiupright position stretcher Const: General: cooperative, comfortable, no acute distress, well developed, alert, awake, average body habitus and overweight Nutritional Appearance: average body habitus and overweight Orientation/consciousness: patient oriented x3 H
[2023-03-14] MEDS: UMECLIDINIUM BROMIDE 62.5 MCG ELLIPTA 1 PUFF INHALATION (11:58)
[2023-03-14 12:02] LABS: Glucose Point of Care 111 mg/dl (65-105)
[2023-03-14 16:02] LABS: Glucose Point of Care 113 mg/dl (65-105)
[2023-03-14] MEDS: RIVAROXABAN 20 MG TABLET PO (16:53)
[2023-03-14 20:46] LABS: Glucose Point of Care 114 mg/dl (65-105)
[2023-03-15] VITALS (10 sets, daily range): BP systolic 132–137; BP diastolic 81–84; PULSE 76–92; RESP 20; TEMP 36.3–36.4; O2SAT 96–100
[2023-03-15 05:57] LABS: Anion Gap 10 mmol/L (8-16); Blood Urea Nitrogen 21 mg/dL (9-20); Calcium 9.5 mg/dL (8.4-10.2); Carbon Dioxide 29 mmol/L (22-30); Chloride 99 mmol/L (98-107); Estimated CRCL calculation 70 ml/min; Estimated Glomerular Filt Rate 60; Glucose 92 mg/dL (65-110); Potassium 3.4 mmol/L (3.4-5.0); Sodium 138 mmol/L (137-145)
[2023-03-15 08:01] LABS: Glucose Point of Care 99 mg/dl (65-105)
[2023-03-15] MEDS: FUROSEMIDE INJ 40 MG/4 ML VIAL IV PUSH (08:47)
[2023-03-15] MEDS: lisinopriL 20 MG TABLET 40 MG PO (08:47)
[2023-03-15] MEDS: SPIRONOLACTONE 50 MG TABLET PO (08:47)
[2023-03-15] MEDS: NICOTINE (*PBKC) 21 MG PATCH 1 PATCH TRANSDERM (08:47)
[2023-03-15] MEDS: ATORVASTATIN 40 MG TABLET PO (08:47)
[2023-03-15] MEDS: ASPIRIN 81 MG CHEWABLE TABLET PO (08:47)
[2023-03-15] MEDS: NIFEdipine 30 MG TAB.ER.24 90 MG PO (08:47)
[2023-03-15] MEDS: cloNIDine HCL 0.1 MG TABLET PO (08:47)
[2023-03-15] MEDS: INSULIN ASPART (*BKC) 100 UNITS/ML SUB-Q (08:48)
[2023-03-15] MEDS: UMECLIDINIUM BROMIDE 62.5 MCG ELLIPTA 1 PUFF INHALATION (10:15)
--- NOTE | 2023-03-15 11:07 | PM.DS ---
DS: Admitting Diagnosis Discharge Date March 15, 2023 Admitting Diagnosis hypertension DS: Discharge Diagnosis Discharge Diagnosis (1) Chest pain: Qualifiers: Chest pain type: unspecified Qualified Code(s): R07.9 - Chest pain, unspecified Code(s): R07.9 - Chest pain, unspecified Status: Acute Assessment and Plan: admit to IMU continuous telemetry continuous pulse ox cautious normalization of blood pressure restart home meds troponins x2 negative ECG SINUS TACHYCARDIA POSSIBLE LEFT ATRIAL ENLARGEMENT INCOMPLETE RIGHT BUNDLE BRANCH BLOCK NONSPECIFIC ST & T-WAVE ABNORMALITY- HIGH LATERAL LEADS BASELINE ARTIFACT- I, II, III, AVR, AVL, AVF, V1 ABNORMAL ECG COMPARED TO ECG 02/27/2023 20:49:47 NO SIGNIFICANT CHANGES Electronically Signed On (2) Acute exacerbation of CHF (congestive heart failure): Qualifiers: Heart failure type: diastolic Qualified Code(s): I50.33 - Acute on chronic diastolic (congestive) heart failure Code(s): I50.9 - Heart failure, unspecified Status: Acute Assessment and Plan: aggressive diuresis daily Strict input and output daily weights 2 g sodium restricted diet 1500 free fluid restricted diet Summary ? 1. Left ventricular chamber dimension is normal. ? 2. Definity contrast administered improved wall motion interpretation. ? 3. Left ventricular systolic function is normal, estimated at 60-65%. ? 4. There is mildly increased left ventricular wall thickness. ? 5. The left ventricular diastolic function is grade I diastolic dysfunction. ? 6. E/e' 14 is mildly elevated. ? 7. There is trace mitral valve regurgitation. ? 8. No pulmonary hypertension, estimated pulmonary arterial systolic pressure is 34 mmHg. Left Ventricle ? E/e' 14 is mildly elevated. ? Definity contrast administered improved wall motion interpretation. ? Left ventricular chamber dimension is normal. ? Left ventricular systolic function is normal, estimated at 60-65%. ? There is mildly increased left ventricular wall thickness. ? The left ventricular diastolic function is grade I diastolic dysfunction. (3) Alcoholism in recovery: Code(s): F10.21 - Alcohol dependence, in remission Status: Acute Assessment and Plan: patient has remained abstinent (4) Hypertensive emergency: Code(s): I16.1 - Hypertensive emergency Status: Acute Assessment and Plan: restart home meds continue to monitor cautious normalization of blood pressure (5) Obstructive sleep apnea: Code(s): G47.33 - Obstructive sleep apnea (adult) (pediatric) Status: Acute Assessment and Plan: CPAP at nighttime (6) Type 2 diabetes mellitus: Qualifiers: Diabetes mellitus custodial insulin use: without custodial use Diabetes mellitus complication status: with neurologic complications Diabetes mellitus complication detail: with polyneuropathy Qualified Code(s): E11.42 - Type 2 diabetes mellitus with diabetic polyneuropathy Code(s): E11.9 - Type 2 diabetes mellitus without complications Status: Acute Assessment and Plan: holding metformin insulin sliding scale as no (7) COPD with asthma: Code(s): J44.9 - Chronic obstructive pulmonary disease, unspecified Status: Acute Assessment and Plan: not actively wheezing continue Ellipta albuterol nebs as needed p.r.n. (8) Tobacco dependence: Code(s): F17.200 - Nicotine dependence, unspecified, uncomplicated Status: Acute Assessment and Plan: patient quit cold turkey the day before nicotine patch as needed DS: Summary Hospital Course Hospital Course: admitted for uncontrolled hypertension. Medications have been adjusted. most recent blood pressures are much improved. Patient is asymptomatic no chest pain able to ambulate to his normal activities. Patient can be discharged to new prescriptions
--- NOTE | 2023-03-15 15:09 | PCCCNOTE ---
On 03/15/23, the student, [Angeli Mccauley], provided care and completed [facility] documentation on this patient. I have reviewed the student's documentation and agree with the findings.
== END 2023-03-15 12:37 | disposition home or self-care (01) ==
LOC: ANHED 23:03 → ANHIMU 03-14 00:14
PROVIDERS: Admitting Provider Internal Medicine; Emergency Provider Emergency Medicine; PCP Internal Medicine; Visit Provider Chiropractor
DX: R07.9 Chest pain, unspecified (principal); I50.30 Unspecified diastolic (congestive) heart failure; I16.1 Hypertensive emergency; E78.2 Mixed hyperlipidemia; F79 Unspecified intellectual disabilities; J44.9 Chronic obstructive pulmonary disease, unspecified; G47.33 Obstructive sleep apnea (adult) (pediatric); E11.9 Type 2 diabetes mellitus without complications; J84.9 Interstitial pulmonary disease, unspecified; J98.11 Atelectasis; R94.31 Abnormal electrocardiogram [ECG] [EKG]; E66.9 Obesity, unspecified; F31.30 Bipolar disorder, current episode depressed, mild or moderate severity, unspecified; F43.10 Post-traumatic stress disorder, unspecified; F10.21 Alcohol dependence, in remission; Z86.711 Personal history of pulmonary embolism; Z79.02 Long term (current) use of antithrombotics/antiplatelets; Z79.51 Long term (current) use of inhaled steroids; Z79.84 Long term (current) use of oral hypoglycemic drugs; Z79.899 Other long term (current) drug therapy; Z82.49 Family history of ischemic heart disease and other diseases of the circulatory system; Z83.3 Family history of diabetes mellitus; Z83.6 Family history of other diseases of the respiratory system
CPT/HCPCS: 36415; 71046; 80048; 80053; 82948; 83690; 83735; 83880; 84132; 84484; 85025; 85610; 85730; 93005; 94640; 96374; 96375; 96376; 99285; A9270; G0378; J0360; J1815; J1940

== ENCOUNTER 2023-04-08 20:55 | Observation (INO) | payer MEDICARE, MEDICAID, SELFPAY ==
[2023-04-08] VITALS (9 sets, daily range): BP systolic 193–218; BP diastolic 115–128; PULSE 95–109; RESP 16–40; TEMP 36.5; O2SAT 95–99
--- NOTE | ~2023-04-08 | CT_ITS ---
EXAMINATION: CT abdomen pelvis wo con DATE: 04/09/2023 00:20 INDICATION: Chest pain. Elevated lipase. TECHNIQUE: Computed tomography (CT) of the abdomen and pelvis was performed without intravenous contr ast. Automated exposure control and iterative reconstruction technique were employed. The dose-length product was 1329.00 mGy-cm. COMPARISON: Chest CT 12/07/2022, 06/12/2016 FINDINGS: The visualized portions of the lung bases demonstrate mild emphysema. There are chronic yoselin undglass opacities in the inferior lungs. Again seen is a 5 mm nodule in right middle lobe, likely be nign. No pleural effusion. The heart size is normal. No pericardial effusion. The liver, gallbladder, spleen, pancreas, adrenal glands, and kidneys are normal. The prostate is moderately enlarged. There is a left inguinal hernia containing fat. There is diverticulosis of the colon without evidence of d iverticulitis. The appendix is normal. There are no pathologically enlarged lymph nodes. There is no free intraperitoneal fluid. There is mild thoracic and lumbar spondylosis. IMPRESSION: 1. Normal pancreas. 2. Mild emphysema. Reviewed, dictated and finalized at location A.
--- NOTE | ~2023-04-08 | US_ITS ---
EXAMINATION: US abdomen limited DATE: 04/09/2023 08:55 INDICATION: Epigastric abdominal pain. Elevated lipase. TECHNIQUE: Multiple grayscale and Doppler ultrasound images of the abdomen were obtained. COMPARISON: CT abdomen and pelvis 04/09/2023 FINDINGS: The visualized portions of the head and body of the pancreas are normal. The liver is charissa l without focal lesion. No liver surface nodularity. There is normal flow in main portal vein. The ga llbladder is normal in size. No gallstones or gallbladder wall thickening. There is no sonographic Mu rphy sign. The common duct is normal and measures 4 mm. IMPRESSION: 1. Normal right upper quadrant ultrasound. Reviewed, dictated and finalized at location A.
--- NOTE | ~2023-04-08 | XR_ITS ---
EXAMINATION: XR chest 2V Exam Date/Time: 04/08/2023 21:44 CDT HISTORY: chest pain WITH UNCONTROLLED HTN Comparison: 03/13/2023. RESULT: Lines, tubes, and devices: None. Lungs and pleura: Slightly low volumes with crowding. Mild diffuse reticular opacities with indistin ct vessels Streaky bibasilar atelectasis/scar. No focal consolidation. Cardiomediastinal silhouette: Stable. Other: No acute osseous or upper abdominal finding. IMPRESSION: Mild interstitial edema. Bibasilar scar/atelectasis. Reviewed, dictated and finalized at location K.
--- NOTE | 2023-04-08 20:57 | ECG_ITS ---
Measurements Intervals [place] Rate: 106 P: 28 MN: 144 QRS: 44 QRSD: 84 T: 64 QT: 342 QTc: 455 Interpretive Statements SINUS TACHYCARDIA POSSIBLE LEFT ATRIAL ENLARGEMENT [-0.1mV P WAVE IN V1/V2] NONSPECIFIC ST & T-WAVE ABNORMALITY ABNORMAL RHYTHM ECG COMPARED TO ECG 03/13/2023 20:27:09 NO SIGNIFICANT CHANGE Electronically Signed On 04-09-2023 13:21:17 CDT by Yasmani Olmedo M.D.
[2023-04-08 21:22] LABS: Basophils Absolute Auto 0.1 K/mm3 (0.0-0.1); Basophils Percent Auto 0.9 % (0.2-1.2); Eosinophils Absolute Auto 0.5 K/mm3 (0-0.3); Eosinophils Percent Auto 3.2 % (0-4.4); Hematocrit 40.8 % (42.0-52.0); Hemoglobin 13.5 g/dL (14.0-18.0); Immature Granulocyte Absolute 0.12 K/mm3 (0.00-0.031); Immature Granulocyte Percent A 0.8 % (0-0.5); Mean Corpuscular HGB Conc 33.1 g/dl (32-36); Mean Corpuscular Hemoglobin 28.7 pg (26-34); Mean Corpuscular Volume 86.6 fl (80-100); Mean Platelet Volume 11.1 fl (7.4-10.4); Monocytes Absolute Auto 0.8 K/mm3 (0.1-0.6); Monocytes Percent Auto 5.4 % (2.6-8.5); Neutrophils Absolute Auto 10.3 K/mm3 (1.3-6.7); Neutrophils Percent Auto 72.7 % (45.5-73.1); Platelet Count Result 295 k/mm3 (150-375); Red Blood Count 4.71 M/mm3 (4.6-6.20); Red Cell Distribution Width 14.7 % (11.5-14.5); White Blood Count 14.1 K/mm3 (4.5-10.0)
[2023-04-08 21:32] LABS: INR 0.9
[2023-04-08 21:33] LABS: Partial Thromboplastin Time 30.2 SECONDS (22.3-36.8)
[2023-04-08 21:44] LABS: Troponin I < 0.012 ng/mL (0.000-0.034)
[2023-04-08 21:45] LABS: Troponin I < 0.012 ng/mL (0.000-0.034)
[2023-04-08 21:50] LABS: Alanine Aminotransferase 53 U/L (6-50); Albumin Level 4.7 g/dL (3.5-5.1); Alkaline Phosphatase 118 U/L (38-126); Anion Gap 10 mmol/L (8-16); Aspartate Amino Transferase 29 U/L (17-59); Bilirubin,Total 0.2 mg/dL (0.2-1.3); Blood Urea Nitrogen 22 mg/dL (9-20); Calcium 9.5 mg/dL (8.4-10.2); Carbon Dioxide 24 mmol/L (22-30); Chloride 106 mmol/L (98-107); Estimated CRCL calculation 72 ml/min; Estimated Glomerular Filt Rate 60; Glucose 157 mg/dL (65-110); Potassium 3.8 mmol/L (3.4-5.0); Sodium 140 mmol/L (137-145)
[2023-04-08 22:50] LABS: Lipase 2893 U/L (23-300)
[2023-04-08 23:22] LABS: NT Pro B Type Natriuretic Pept 3750 pg/mL (19.9-100)
[2023-04-09] VITALS (16 sets, daily range): BP systolic 130–208; BP diastolic 68–122; PULSE 92–118; RESP 17–33; TEMP 36.4–36.7; O2SAT 94–99; BMI 40.9
[2023-04-09] MEDS: MORPHINE SULFATE (*CRX) 4 MG/ML INJ IV PUSH (00:01)
--- NOTE | 2023-04-09 02:37 | ED.GENADULT ---
HPI - General Adult General Chief complaint: Chest Pain Stated complaint: chest pain Time Seen by Provider: 04/08/23 22:53 History of Present Illness HPI narrative: Patient 42-year-old gentleman who presents the emergency department with chief complaint of hypertension and chest discomfort. Patient has a long running history of hypertension that is poorly controlled and history of congestive heart failure. Patient reports that today noticed his blood pressure was running high and had a little bit of discomfort in his chest. Patient reports that he talked to a family member who recommended that he come to the emergency department. Patient reports that he has been more compliant with his medications Related Data Home Medications Medication Instructions Recorded Confirmed albuterol 90 mcg/actuation aerosol See Rx Instructions .Route 12/24/22 03/13/23 inhaler .COMPLEX PRN Shortness Of Breath Or Wheezing lisinopril 40 mg tablet 40 mg PO DAILY 03/14/23 03/14/23 Allergies Allergy/AdvReac Type Severity Reaction Status Date / Time iodine Allergy Unknown Unknown Verified 03/14/23 00:37 Contrast Media Allergy Unknown Unknown Uncoded 03/13/23 20:23 Review of Systems Review of Systems: A 10 system review of systems was completed on the patient and is negative except for what is stated in the HPI. Nursing and ancillary documentation was reviewed. 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 Type 2 diabetes mellitus Surgical History Surgical History H/O right inguinal hernia repair Status post open reduction with internal fixation of fracture Right ankle Family History Family History Father Diabetes mellitus Acute myocardial infarction Congestive heart failure Hypertension Colon cancer Sibling Diabetes mellitus Congestive heart failure Hypertension Sibling History of blood clots Diabetes mellitus Sibling History of blood clots Diabetes mellitus Mother Diabetes mellitus Chronic obstructive pulmonary disease Sibling Diabetes mellitus Sibling Diabetes mellitus Sibling Diabetes mellitus Sibling Diabetes mellitus Sibling Diabetes mellitus Social History Social History Social History: He lives in a mobile home that does not have an hot water heater. He lives with his fiancee and her 13-year-old nephew. He he is on disability due to his intellectual disability. He has smoked as much as 2 packs cigarettes per day but has cut back to 1-2 cigarettes per day since October 2022. He used to be an alcoholic in drink a case of beer a day but stopped drinking alcohol in 2019. He used to smoke marijuana but has not done so since he was diagnosed with heart failure. He denies any other illicit substance use. He used to also cut and has associated scars on his forearms. They have 3 dogs and 3 cats. Code status: Full code Surrogate decision maker: Fred Marshall (significant other) Smoking packs per day: 0.1 Smoking cigarettes per day: 2.0 Years smoked: 30 Smoking pack-years: 3.00 Smoking status: Former smoker Tobacco type: cigarettes Second hand tobacco smoke exposure: Yes Additional smoking assessment comments: 2 packs/day previously, cut down to 1-2 cigarettes/day and has quit 03/13/23 Alcohol intake: former Drinks per week: 0 Substance use:
--- NOTE | 2023-04-09 03:51 | ADMGEN ---
This patient, Enrike Dhaliwal, was admitted to IMU Room 205-01. Patient/family oriented to hospital policies and general routines including ID bracelet, bed and alarms, visiting hours, pain management, procedures, bathroom and other care routines, personal items, smoking policy, room service/diet, and visiting hours. Information on how to activate the Rapid Response Team has been discussed. Patient/Family are encouraged to report perceived risks to care and to ask questions if they do not understand what they are told or what they should do.
[2023-04-09 04:01] LABS: Glucose Point of Care 113 mg/dl (65-105)
[2023-04-09] MEDS: hydrALAZINE HCL 20 MG/ML VIAL 10 MG IV PUSH ×2 (04:42→09:55)
[2023-04-09 05:10] LABS: Troponin I 0.021 ng/mL (0.000-0.034)
[2023-04-09] MEDS: UMECLIDINIUM BROMIDE 62.5 MCG ELLIPTA 1 PUFF INHALATION (06:54)
[2023-04-09] MEDS: NIFEdipine 30 MG TAB.ER.24 90 MG PO (08:03)
[2023-04-09] MEDS: lisinopriL 20 MG TABLET 40 MG PO (08:03)
[2023-04-09] MEDS: ATORVASTATIN 40 MG TABLET PO (08:04)
[2023-04-09] MEDS: SPIRONOLACTONE 50 MG TABLET PO (08:04)
[2023-04-09] MEDS: METOPROLOL SUCCINATE EXT REL 100 MG TABCR PO (08:04)
[2023-04-09] MEDS: PANTOPRAZOLE SODIUM IV 40 MG VIAL IV PUSH (08:04)
[2023-04-09] MEDS: cloNIDine HCL 0.1 MG TABLET PO (08:04)
[2023-04-09 08:34] LABS: Glucose Point of Care 112 mg/dl (65-105)
--- NOTE | 2023-04-09 09:09 | PM.IMHP ---
H&P: HPI History of Present Illness Date/Time: 04/09/23 09:09 Chief Complaint: HYPERTENSION Narrative: Patient 42-year-old gentleman who presents the emergency department with chief complaint of hypertension and chest discomfort.? Patient has a long running history of hypertension that is poorly controlled and history of congestive heart failure.? Patient reports that today noticed his blood pressure was running high and had a little bit of discomfort in his chest.? Patient reports that he talked to a family member who recommended that he come to the emergency department.? Patient reports that he has been more compliant with his medications. HE STATES HOWEVER THAT HE HOLD SOME MONEY TO THE PHARMACY AND WAS UNABLE TO FILL HIS CLONIDINE WHICH HE RAN OUT A WEEK AGO. HE HAS BEEN TAKING HIS OTHER MEDICATIONS REGULARLY Review of Systems Review of Systems: - CONSTITUTIONAL: DENIES WEIGHT LOSS, FEVER AND CHILLS. - HEENT: DENIES CHANGES IN VISION AND HEARING - RESPIRATORY: DENIES SOB AND COUGH. - CV: DENIES PALPITATIONS AND REPORTS CP DESCRIBED IN HPI - GI: DENIES ABDOMINAL PAIN, NAUSEA, VOMITING AND DIARRHEA. - : DENIES DYSURIA AND URINARY FREQUENCY. - MSK: DENIES MYALGIA AND JOINT PAIN. - SKIN: DENIES RASH AND PRURITUS. - NEUROLOGICAL: DENIES HEADACHE AND SYNCOPE. - PSYCHIATRIC: DENIES RECENT CHANGES IN MOOD. DENIES ANXIETY AND DEPRESSION. 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 Type 2 diabetes mellitus Surgical History Surgical History H/O right inguinal hernia repair Status post open reduction with internal fixation of fracture Right ankle Family History Family History Father Diabetes mellitus Acute myocardial infarction Congestive heart failure Hypertension Colon cancer Sibling Diabetes mellitus Congestive heart failure Hypertension Sibling History of blood clots Diabetes mellitus Sibling History of blood clots Diabetes mellitus Mother Diabetes mellitus Chronic obstructive pulmonary disease Sibling Diabetes mellitus Sibling Diabetes mellitus Sibling Diabetes mellitus Sibling Diabetes mellitus Sibling Diabetes mellitus Social History Social History Social History: He lives in a mobile home that does not have an hot water heater. He lives with his fiancee and her 13-year-old nephew. He he is on disability due to his intellectual disability. He has smoked as much as 2 packs cigarettes per day but has cut back to 1-2 cigarettes per day since October 2022. He used to be an alcoholic in drink a case of beer a day but stopped drinking alcohol in 2019. He used to smoke marijuana but has not done so since he was diagnosed with heart failure. He denies any other illicit substance use. He used to also cut and has associated scars on his forearms. They have 3 dogs and 3 cats. Code status: Full code Surrogate decision maker: Fred Marshall (significant other) Smoking packs per day: 0.5 Smoking cigarettes per day: 10.0 Years smoked: 31 Smoking pack-years: 15.50 Smoking status: Current every day smoker Tobacco type: cigarettes Second hand tobacco smoke exposure: Yes Additional smoking assessment comments: 2 packs/day previously, cut down to 1-2 cigarettes/day and has quit 03/13/23 Alcohol intake: former Drinks per week: 0 Sub
[2023-04-09 09:31] LABS: Basophils Absolute Auto 0.2 K/mm3 (0.0-0.1); Basophils Percent Auto 1.2 % (0.2-1.2); Eosinophils Absolute Auto 0.4 K/mm3 (0-0.3); Eosinophils Percent Auto 3.3 % (0-4.4); Hematocrit 37.9 % (42.0-52.0); Hemoglobin 12.4 g/dL (14.0-18.0); Immature Granulocyte Absolute 0.15 K/mm3 (0.00-0.031); Immature Granulocyte Percent A 1.2 % (0-0.5); Lymphocytes Percent Auto 22.7 % (18.3-44.2); Mean Corpuscular HGB Conc 32.7 g/dl (32-36); Mean Corpuscular Volume 88.8 fl (80-100); Mean Platelet Volume 11.7 fl (7.4-10.4); Monocytes Absolute Auto 0.9 K/mm3 (0.1-0.6); Monocytes Percent Auto 7.1 % (2.6-8.5); Neutrophils Absolute Auto 8.2 K/mm3 (1.3-6.7); Neutrophils Percent Auto 64.5 % (45.5-73.1); Platelet Count Result 259 k/mm3 (150-375); Red Blood Count 4.27 M/mm3 (4.6-6.20); Red Cell Distribution Width 15.1 % (11.5-14.5); White Blood Count 12.8 K/mm3 (4.5-10.0)
[2023-04-09 09:57] LABS: Alanine Aminotransferase 45 U/L (6-50); Albumin Level 4.2 g/dL (3.5-5.1); Alkaline Phosphatase 102 U/L (38-126); Anion Gap 10 mmol/L (8-16); Aspartate Amino Transferase 25 U/L (17-59); Bilirubin,Total 0.2 mg/dL (0.2-1.3); Blood Urea Nitrogen 22 mg/dL (9-20); Carbon Dioxide 23 mmol/L (22-30); Chloride 106 mmol/L (98-107); Estimated CRCL calculation 79 ml/min; Estimated Glomerular Filt Rate > 60; Glucose 97 mg/dL (65-110); Lipase 1809 U/L (23-300); Potassium 3.8 mmol/L (3.4-5.0); Sodium 139 mmol/L (137-145)
[2023-04-09] MEDS: FUROSEMIDE INJ 40 MG/4 ML VIAL IV PUSH (10:45)
[2023-04-09 11:55] LABS: Glucose Point of Care 123 mg/dl (65-105)
--- NOTE | 2023-04-09 20:10 | PM.DS ---
DS: Admitting Diagnosis Discharge Date 04/09/23 Admitting Diagnosis hypertension DS: Discharge Diagnosis Discharge Diagnosis (1) Elevated lipase: Code(s): R74.8 - Abnormal levels of other serum enzymes Status: Acute (2) Alcoholism in recovery: Code(s): F10.21 - Alcohol dependence, in remission Status: Acute (3) Hypertensive emergency: Code(s): I16.1 - Hypertensive emergency Status: Acute (4) Elevated troponin: Code(s): R77.8 - Other specified abnormalities of plasma proteins Status: Acute (5) Hypokalemia: Code(s): E87.6 - Hypokalemia Status: Acute (6) Type 2 diabetes mellitus: Qualifiers: Diabetes mellitus senior living insulin use: without supervisor intermediates use Diabetes mellitus complication status: with neurologic complications Diabetes mellitus complication detail: with polyneuropathy Qualified Code(s): E11.42 - Type 2 diabetes mellitus with diabetic polyneuropathy Code(s): E11.9 - Type 2 diabetes mellitus without complications Status: Acute (7) Chest pain: Qualifiers: Chest pain type: unspecified Qualified Code(s): R07.9 - Chest pain, unspecified Code(s): R07.9 - Chest pain, unspecified Status: Acute (8) Acute exacerbation of CHF (congestive heart failure): Qualifiers: Heart failure type: diastolic Qualified Code(s): I50.33 - Acute on chronic diastolic (congestive) heart failure Code(s): I50.9 - Heart failure, unspecified Status: Acute (9) Congestive heart failure: Qualifiers: Heart failure chronicity: acute Heart failure type: unspecified Qualified Code(s): I50.9 - Heart failure, unspecified Code(s): I50.9 - Heart failure, unspecified Status: Acute (10) COPD with asthma: Code(s): J44.9 - Chronic obstructive pulmonary disease, unspecified Status: Acute DS: Summary Hospital Course Hospital Course: 42-YEAR-OLD WITH HISTORY OF HYPERTENSION AND CONGESTIVE HEART FAILURE DIASTOLIC COPD/ASTHMA BIPOLAR DISORDER HYPERLIPIDEMIA OBSTRUCTIVE SLEEP APNEA HISTORY OF PE ON ANTICOAGULATION WITH XARELTO PRESENTED WITH ELEVATED BLOOD PRESSURE.? HE ALSO REPORTED CHEST PAIN.? INITIAL BLOOD PRESSURE IN 200 SYSTOLIC MILDLY ELEVATED WBC COUNT CHEST X-RAY WITH MILD INTERSTITIAL EDEMA.? HE WAS ALSO NOTED TO HAVE ELEVATED LIPASE.? CT ABDOMEN WAS NEGATIVE LFTS WAS NORMAL RIGHT UPPER QUADRANT ULTRASOUND DONE EARLIER WAS NEGATIVE.? HE WAS DIURESED WITH LAISX AND RESTARTED HIS HOME MEDICATIONS. RQUIRED PRN HYDRLAZINE. HE HAS BEEN OUT OF HIS CLONIDINE WHICH LIKELY IS THE REASON FOR HIS ACCELERATED HYPERTENSION.? TROPONIN WAS NEGATIVE AND SERIAL TROPONIN WAS DONE WHICH REMAINED NEGATIVE.? REPEAT LIPASE IS IMPROVED BUT STILL ELEVATED. HE REPORTED NO ABDOMINAL PAIN, NAUSEA, VOMITING. HE HAS THE REPORTED HISTORY OF ALCOHOL USE LIKELY ETIOLOGY FOR HIS PANCREATITIS.? WILL NEED TO CONTINUE TO MONITOR HIS LIPASE LEVEL.? HYDRALAZINE IV P.R.N. FOR BLOOD PRESSURE CONTROL. DVT PROPHYLAXIS XARELTO TYPE 2 DIABETES ON METFORMIN AT HOME SSI HIS BP DID IMPROVE DURING THE HOSPITAL COURSE, AND ALSO FELT BETTER. HE NEEDED TO BE FURTHER MONITORED DUE TO HIS LIPASEMIA AND ADJUSTMENT OF HIS BP MEDIATIONS, HOWEVER [facility] DECIDED TO NOT STAY AND LEFT AGAINST MEDICAL ADVICE. Time Spent with Patient Time attestation: Total time spent providing and/or coordinating discharge services:5 MINS FOR THE DISCHARGE SUMMARY Exam Narrative: GENERAL: The patient is well developed, not in acute distress HEENT: Nonicteric sclerae, PERRLA, EOMI. Oropharynx clear. Moist mucous membranes. Conjunctivae appear well perfused. CHEST: Chest wall is nontender. HEART: Regular rate and rhythm without murmur, rubs, or gallops LUNGS: Clear to auscultation bilaterally. no respiratory distress ABDOMEN: Soft, positive bowel sounds, non-tender, no organomegaly. SKIN: No rash, no excessive bruising, petechiae, or purpura. NEUROLOGIC
== END 2023-04-09 15:23 | disposition left against medical advice (07) ==
LOC: ANHED 04-09 02:43 → ANHIMU 04-09 04:01
PROVIDERS: Internal Medicine; Admitting Provider Internal Medicine; Emergency Provider Emergency Medicine; PCP Internal Medicine; Visit Provider Internal Medicine
DX: I16.1 Hypertensive emergency (principal); R74.8 Abnormal levels of other serum enzymes; R77.8 Other specified abnormalities of plasma proteins; E87.6 Hypokalemia; E11.9 Type 2 diabetes mellitus without complications; I11.0 Hypertensive heart disease with heart failure; I50.9 Heart failure, unspecified; J44.9 Chronic obstructive pulmonary disease, unspecified; R07.89 Other chest pain; F31.9 Bipolar disorder, unspecified; E78.2 Mixed hyperlipidemia; F79 Unspecified intellectual disabilities; G47.33 Obstructive sleep apnea (adult) (pediatric); Z86.711 Personal history of pulmonary embolism; F43.10 Post-traumatic stress disorder, unspecified; J84.9 Interstitial pulmonary disease, unspecified; R94.31 Abnormal electrocardiogram [ECG] [EKG]; Z87.891 Personal history of nicotine dependence; F12.90 Cannabis use, unspecified, uncomplicated; F10.21 Alcohol dependence, in remission; Z79.01 Long term (current) use of anticoagulants; Z79.84 Long term (current) use of oral hypoglycemic drugs; Z79.51 Long term (current) use of inhaled steroids; Z79.899 Other long term (current) drug therapy; Z83.3 Family history of diabetes mellitus; Z82.49 Family history of ischemic heart disease and other diseases of the circulatory system; Z82.79 Family history of other congenital malformations, deformations and chromosomal abnormalities; Z82.5 Family history of asthma and other chronic lower respiratory diseases
CPT/HCPCS: 36415; 71046; 74176; 76705; 80053; 82948; 83690; 83880; 84484; 85025; 85610; 85730; 93005; 94640; 96374; 96375; 96376; 99285; A9270; C9113; G0378; J0360; J1940; J2270

== ENCOUNTER 2023-05-14 22:42 | Emergency (ER) | payer MEDICARE, MEDICAID, SELFPAY ==
--- NOTE | ~2023-05-14 | XR_ITS ---
XR chest 1V portable 05/15/2023 00:13 Indication: Chest pain Procedure: AP portable chest Comparison: Comparison to multiple prior studies sequentially, with oldest reviewed study dated 02/2023. Findings: Heart size normal for technique. Bilateral perihilar interstitial infiltrates. No pleural e ffusion or pneumothorax. No acute osseous abnormality. Impression: 1: Mild bilateral perihilar interstitial infiltrates with peribronchial thickening which may reflect mild edema or pneumonia. Reviewed, dictated and finalized at location A. Impression: 1: Mild bilateral perihilar interstitial infiltrates with peribronchial thicken ing which may reflect mild edema or pneumonia.
[2023-05-14 22:57] VITALS: BP 151/87; PULSE 110; RESP 16; TEMP 36.6; O2SAT 93
[2023-05-14 23:08] VITALS: BP 159/91; PULSE 104; RESP 16; TEMP 37.1; O2SAT 98
--- NOTE | 2023-05-14 23:30 | ECG_ITS ---
Measurements Intervals [place] Rate: 97 P: 15 ND: 179 QRS: 30 QRSD: 90 T: 142 QT: 350 QTc: 447 Interpretive Statements SINUS RHYTHM DELAYED PRECORDIAL R/S TRANSITION ST-T WAVE ABNORMALITY IN HIGH LATERAL LEADS- CONSIDER ISCHEMIA ABNORMAL ECG COMPARED TO ECG 04/08/2023 21:07:[address]M NOW PRESENT [address]-T WAVE ABNORMALITY NOW PRESENT Electronically Signed On 05-15-2023 7:18:21 CDT by Saurabh Torres D.O.
[2023-05-14] MEDS: SODIUM CHLORIDE 0.9% IV 1,000 ML 999 ML IV CONT (23:38)
--- NOTE | 2023-05-14 23:43 | PC.NURSE ---
pt sts I need a cab ride home to [place]. charge notified. Per charge there is no cabs on weekends
[2023-05-15 00:34] VITALS: PULSE 88; RESP 25
[2023-05-15 00:46] VITALS: PULSE 89; RESP 16
[2023-05-15 00:57] LABS: Basophils Absolute Auto 0.1 K/mm3 (0.0-0.1); Basophils Percent Auto 0.8 % (0.2-1.2); Eosinophils Absolute Auto 0.1 K/mm3 (0-0.3); Eosinophils Percent Auto 1.2 % (0-4.4); Hemoglobin 13.6 g/dL (14.0-18.0); Immature Granulocyte Absolute 0.07 K/mm3 (0.00-0.031); Immature Granulocyte Percent A 0.6 % (0-0.5); Lymphocytes Absolute Auto 1.89 K/mm3 (0.9-3.2); Mean Corpuscular HGB Conc 33.2 g/dl (32-36); Mean Corpuscular Volume 87.4 fl (80-100); Mean Platelet Volume 11.5 fl (7.4-10.4); Monocytes Absolute Auto 0.7 K/mm3 (0.1-0.6); Monocytes Percent Auto 6.2 % (2.6-8.5); Neutrophils Absolute Auto 8.9 K/mm3 (1.3-6.7); Neutrophils Percent Auto 75.2 % (45.5-73.1); Platelet Count Result 239 k/mm3 (150-375); Red Blood Count 4.69 M/mm3 (4.6-6.20); Red Cell Distribution Width 15.9 % (11.5-14.5); White Blood Count 11.8 K/mm3 (4.5-10.0)
--- NOTE | 2023-05-15 00:58 | ED.GENADULT ---
HPI - General Adult General Chief complaint: Unspecified Stated complaint: chest [ain Time Seen by Provider: 05/14/23 23:20 History of Present Illness HPI narrative: Patient is a 42-year-old gentleman who presents emerged part with chief complaint of chest discomfort. Patient reports that his blood pressure was elevated this evening able to tightness in his chest by the time he arrives emerged department his blood pressure had come back down and reports that he is currently not having any chest pain. Related Data Home Medications Medication Instructions Recorded Confirmed lisinopril 40 mg tablet 40 mg PO DAILY 03/14/23 04/09/23 albuterol sulfate 90 mcg/actuation 2 puff inhalation QID PRN 04/09/23 04/09/23 aerosol inhaler Shortness Of Breath Or Wheezing metoprolol succinate 100 mg 100 mg PO DAILY 04/09/23 04/09/23 tablet,extended release 24 hr Allergies Allergy/AdvReac Type Severity Reaction Status Date / Time iodine Allergy Unknown Unknown Verified 05/14/23 23:23 Contrast Media Allergy Unknown Unknown Uncoded 05/14/23 23:23 Review of Systems Review of Systems: A 10 system review of systems was completed on the patient and is negative except for what is stated in the HPI. Nursing and ancillary documentation was reviewed. 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 Type 2 diabetes mellitus Surgical History Surgical History H/O right inguinal hernia repair Status post open reduction with internal fixation of fracture Right ankle Family History Family History Father Diabetes mellitus Acute myocardial infarction Congestive heart failure Hypertension Colon cancer Sibling Diabetes mellitus Congestive heart failure Hypertension Sibling History of blood clots Diabetes mellitus Sibling History of blood clots Diabetes mellitus Mother Diabetes mellitus Chronic obstructive pulmonary disease Sibling Diabetes mellitus Sibling Diabetes mellitus Sibling Diabetes mellitus Sibling Diabetes mellitus Sibling Diabetes mellitus Social History Social History Social History: He lives in a mobile home that does not have an hot water heater. He lives with his fiancee and her 13-year-old nephew. He he is on disability due to his intellectual disability. He has smoked as much as 2 packs cigarettes per day but has cut back to 1-2 cigarettes per day since October 2022. He used to be an alcoholic in drink a case of beer a day but stopped drinking alcohol in 2019. He used to smoke marijuana but has not done so since he was diagnosed with heart failure. He denies any other illicit substance use. He used to also cut and has associated scars on his forearms. They have 3 dogs and 3 cats. Code status: Full code Surrogate decision maker: Fred Marshall (significant other) Smoking packs per day: 0.5 Smoking cigarettes per day: 10.0 Years smoked: 31 Smoking pack-years: 15.50 Smoking status: Current every day smoker Tobacco type: cigarettes Second hand tobacco smoke exposure: Yes Additional smoking assessment comments: 2 packs/day previously, cut down to 1-2 cigarettes/day and has quit 03/13/23 Alcohol intake: former Drinks per week: 0 Substance use: never Substance use type: marijuana Lack of Transportation: No Lack of Food: Never True Daniel
[2023-05-15 01:00] VITALS: BP 98/64; PULSE 84; RESP 23
[2023-05-15 01:09] LABS: Prothrombin Time 14.1 Seconds (11.1-14.7)
[2023-05-15 01:10] LABS: Partial Thromboplastin Time 35.7 SECONDS (22.3-36.8)
[2023-05-15 01:12] LABS: Alanine Aminotransferase 31 U/L (6-50); Albumin Level 4.7 g/dL (3.5-5.1); Alkaline Phosphatase 74 U/L (38-126); Anion Gap 12 mmol/L (8-16); Aspartate Amino Transferase 21 U/L (17-59); Bilirubin,Total 0.5 mg/dL (0.2-1.3); Blood Urea Nitrogen 15 mg/dL (9-20); Calcium 9.2 mg/dL (8.4-10.2); Carbon Dioxide 22 mmol/L (22-30); Chloride 106 mmol/L (98-107); Estimated CRCL calculation 89 ml/min; Estimated Glomerular Filt Rate > 60; Glucose 107 mg/dL (65-110); Lipase 547 U/L (23-300); Potassium 3.5 mmol/L (3.4-5.0); Sodium 140 mmol/L (137-145)
[2023-05-15 01:15] VITALS: PULSE 78; RESP 26
[2023-05-15 01:17] LABS: Appearance Urine Clear (Clear); Bacteria Urine None Seen /hpf; Bilirubin Urine Negative (Negative); Blood Urine Negative (Negative); Color Urine Yellow (Yellow); Glucose Urine UA Negative (Negative); Ketones Urine Negative (Negative); Leukocyte Esterase Ur Negative LEU/UL (Negative); Need Manual Microscopic Reviewed; Nitrate Urine Negative (Negative); Protein Urine 2+ mg/dL (Negative); RBC Urine 0-2 /hpf (0-2); Squamous Epithelial Cell Urine None seen /hpf (Few); WBC Urine 0-5 /hpf
[2023-05-15 01:24] LABS: NT Pro B Type Natriuretic Pept 2030 pg/mL (19.9-100); Troponin I < 0.012 ng/mL (0.000-0.034)
[2023-05-15 01:26] LABS: Add Urine Microscopic? YES
[2023-05-15 01:29] LABS: Amphetamine Screen Urine Negative (Negative); Barbiturate Screen Urine Negative (Negative); Benzodiazepines Screen Urine Negative (Negative); Cannabinoid Screen Urine Negative (Negative); Cocaine Screen Urine Negative (Negative); Methadone Screen Urine Negative (Negative); Opiate Screen Urine Negative (Negative); Phencyclidine Screen Urine Negative (Negative)
[2023-05-15 01:31] VITALS: PULSE 80; RESP 28
[2023-05-15 01:52] VITALS: BP 145/78; PULSE 81; RESP 20
--- NOTE | 2023-05-31 09:49 | PC.NURSE ---
LATE ENTRY This note is being entered to document information to the patient's record. The following information was omitted on [05/14/23], by [Kala Arellano RN]. NS stop time 0030.
== END 2023-05-15 02:15 | disposition home or self-care (01) ==
PROVIDERS: Emergency Provider Emergency Medicine; PCP Internal Medicine
DX: R07.89 Other chest pain (principal); I50.9 Heart failure, unspecified; I11.0 Hypertensive heart disease with heart failure; J44.9 Chronic obstructive pulmonary disease, unspecified; E11.9 Type 2 diabetes mellitus without complications; E78.2 Mixed hyperlipidemia; G47.33 Obstructive sleep apnea (adult) (pediatric); F79 Unspecified intellectual disabilities; F10.21 Alcohol dependence, in remission; Z86.711 Personal history of pulmonary embolism; Z85.828 Personal history of other malignant neoplasm of skin; Z87.891 Personal history of nicotine dependence; Z79.01 Long term (current) use of anticoagulants; Z79.84 Long term (current) use of oral hypoglycemic drugs; Z79.899 Other long term (current) drug therapy; R94.31 Abnormal electrocardiogram [ECG] [EKG]
CPT/HCPCS: 36415; 71045; 80053; 80307; 81001; 83690; 83880; 84484; 85025; 85610; 85730; 93005; 96360; 99284; J7030

== ENCOUNTER 2024-01-23 19:18 | Emergency (ER) | payer MEDICARE, MEDICAID, SELFPAY ==
--- NOTE | 2024-01-23 | ECG_ITS ---
Measurements Intervals [place] Rate: 80 P: 11 MT: 180 QRS: 20 QRSD: 84 T: 167 QT: 354 QTc: 410 Interpretive Statements SINUS RHYTHM ST DEVIATION AND MODERATE T-WAVE ABNORMALITY, CONSIDER LATERAL ISCHEMIA [-0.1+ mV T WAVE IN I/aVL/V5/V6] ABNORMAL ECG COMPARED TO ECG 01/23/2024 20:03:00 NO SIGNIFICANT CHANGES Electronically Signed On 01-24-2024 12:58:38 CDT by Yasmani Olmedo M.D.
--- NOTE | ~2024-01-23 | XR_ITS ---
EXAMINATION: XR chest 1V portable DATE: 01/23/2024 20:23 INDICATION: Chest pain. TECHNIQUE: A single frontal view of the chest was obtained. COMPARISON: Chest single view 05/14/2023 FINDINGS: There is no pneumonia, pleural effusion, or pneumothorax. The heart size is normal. IMPRESSION: 1. No acute cardiopulmonary disease. Reviewed, dictated and finalized at location E.
--- NOTE | 2024-01-23 19:50 | ECG_ITS ---
Measurements Intervals [place] Rate: 97 P: 34 CT: 169 QRS: 53 QRSD: 84 T: 158 QT: 340 QTc: 432 Interpretive Statements SINUS RHYTHM ST-T WAVE ABNORMALITY IN HIGH LATERAL LEADS- CONSIDER ISCHEMIA BASELINE ARTIFACT- III, AVF ABNORMAL ECG COMPARED TO ECG 05/14/2023 23:17:40 NO SIGNIFICANT CHANGES Electronically Signed On 01-23-2024 20:06:29 CDT by Saurabh Torres D.O.
[2024-01-23 20:01] VITALS: BP 187/99; PULSE 93; RESP 15; TEMP 36.6; O2SAT 97
--- NOTE | 2024-01-23 20:01 | ECG_ITS ---
Measurements Intervals [place] Rate: 92 P: [place]: 0 QRS: 54 QRSD: 85 T: 152 QT: 339 QTc: 420 Interpretive Statements SINUS RHYTHM INCOMPLETE RIGHT BUNDLE BRANCH BLOCK ST-T WAVE ABNORMALITY IN HIGH LATERAL LEADS- CONSIDER ISCHEMIA ABNORMAL ECG COMPARED TO ECG 01/23/2024 19:52:54 NO SIGNIFICANT CHANGES Electronically Signed On 01-23-2024 20:08:58 CDT by Saurabh Torres D.O.
[2024-01-23] MEDS: ASPIRIN 81 MG CHEWABLE TABLET 324 MG PO (20:04)
[2024-01-23 20:12] LABS: Basophils Absolute Auto 0.2 K/mm3 (0.0-0.1); Basophils Percent Auto 1.2 % (0.2-1.2); Eosinophils Absolute Auto 0.6 K/mm3 (0-0.3); Eosinophils Percent Auto 4.4 % (0-4.4); Hemoglobin 13.9 g/dL (14.0-18.0); Immature Granulocyte Absolute 0.08 K/mm3 (0.00-0.031); Immature Granulocyte Percent A 0.6 % (0-0.5); Lymphocytes Absolute Auto 2.25 K/mm3 (0.9-3.2); Lymphocytes Percent Auto 18.1 % (18.3-44.2); Mean Corpuscular HGB Conc 33.1 g/dl (32-36); Mean Corpuscular Hemoglobin 29.6 pg (26-34); Mean Corpuscular Volume 89.4 fl (80-100); Monocytes Absolute Auto 0.8 K/mm3 (0.1-0.6); Monocytes Percent Auto 6.2 % (2.6-8.5); Neutrophils Absolute Auto 8.6 K/mm3 (1.3-6.7); Neutrophils Percent Auto 69.5 % (45.5-73.1); Platelet Count Result 240 k/mm3 (150-375); Red Cell Distribution Width 15.4 % (11.5-14.5); White Blood Count 12.4 K/mm3 (4.5-10.0)
[2024-01-23 20:22] LABS: Alanine Aminotransferase 62 U/L (6-50); Albumin Level 4.5 g/dL (3.5-5.1); Alkaline Phosphatase 67 U/L (38-126); Anion Gap 10 mmol/L (4-12); Aspartate Amino Transferase 44 U/L (17-59); Bilirubin,Total 0.3 mg/dL (0.2-1.3); Blood Urea Nitrogen 19 mg/dL (9-20); Calcium 9.9 mg/dL (8.4-10.2); Carbon Dioxide 24 mmol/L (22-30); Chloride 105 mmol/L (98-107); Estimated CRCL calculation 83 ml/min; Estimated Glomerular Filt Rate > 60; Glucose 131 mg/dL (65-110); Lipase 385 U/L (23-300); Potassium 4.2 mmol/L (3.4-5.0); Sodium 139 mmol/L (137-145)
[2024-01-23 20:26] LABS: INR 1.8; Prothrombin Time 22.1 Seconds (11.1-14.7)
[2024-01-23 20:27] LABS: Partial Thromboplastin Time 45.7 Seconds (22.3-36.8)
[2024-01-23 20:33] LABS: Troponin I < 0.012 ng/mL (0.000-0.034)
[2024-01-23 20:46] VITALS: PULSE 92; RESP 21; O2SAT 98
[2024-01-23] MEDS: IPRATROPIUM 0.5 MG/ALBUTEROL SULFATE 2.5 MG AMPUL.NEB 3 ML 12 ML INHALATION (21:02)
[2024-01-23] MEDS: MAGNESIUM SULF 2 GM/WATER 50ML 2 GM/50 ML BAG IVPB (21:12)
[2024-01-23] MEDS: dexAMETHasone SOD PHOS INJ 10 MG/ML 1 ML VIAL IV PUSH (21:13)
[2024-01-23] MEDS: ACETAMINOPHEN 500 MG TABLET 1000 MG PO (21:13)
[2024-01-23 21:15] VITALS: PULSE 91; RESP 22; O2SAT 100
[2024-01-23 21:16] VITALS: BP 197/119; PULSE 94; RESP 20; O2SAT 100
[2024-01-23 21:29] VITALS: RESP 21
[2024-01-23 23:31] LABS: Troponin I < 0.012 ng/mL (0.000-0.034)
[2024-01-24 00:42] LABS: Amphetamine Screen Urine Negative (Negative); Barbiturate Screen Urine Negative (Negative); Benzodiazepines Screen Urine Negative (Negative); Cannabinoid Screen Urine Negative (Negative); Cocaine Screen Urine Negative (Negative); Methadone Screen Urine Negative (Negative); Opiate Screen Urine Negative (Negative); Phencyclidine Screen Urine Negative (Negative)
--- NOTE | 2024-01-24 00:43 | ED.GENADULT ---
HPI - General Adult General Chief complaint: Chest Pain Stated complaint: chest pain Time Seen by Provider: 01/23/24 20:12 History of Present Illness HPI narrative: This is a 43-year-old male presenting ED with a chief complaint of chest pain. Patient states the chest pain started at 7:00 p.m. last night is a sharp stabbing pain in the left side of his chest. Nonradiating 8 out 10 intensity and constant. He has had pain like this multiple times in the past. No exacerbating alleviating factors. Associated with some shortness of breath. He denies fevers nausea vomiting diaphoresis exertional component or cough. Related Data Home Medications Medication Instructions Recorded Confirmed lisinopril 40 mg tablet 40 mg PO DAILY 03/14/23 04/09/23 albuterol sulfate 90 mcg/actuation 2 puff inhalation QID PRN 04/09/23 04/09/23 aerosol inhaler Shortness Of Breath Or Wheezing metoprolol succinate 100 mg 100 mg PO DAILY 04/09/23 04/09/23 tablet,extended release 24 hr Allergies Allergy/AdvReac Type Severity Reaction Status Date / Time iodine Allergy Unknown Unknown Verified 01/23/24 19:19 Contrast Media Allergy Unknown Unknown Uncoded 05/14/23 23:23 [facility] Past Medical History Medical History Alcoholism in recovery Benign essential hypertension Bipolar 1 disorder, depressed COPD with asthma Hypertensive emergency Malignant tumor, spindle cell type Mixed hyperlipidemia Nicotine abuse Obstructive sleep apnea Personal history of pulmonary embolism PTSD (post-traumatic stress disorder) 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 Type 2 diabetes mellitus Surgical History Surgical History H/O right inguinal hernia repair Status post open reduction with internal fixation of fracture Right ankle Family History Family History Father Diabetes mellitus Acute myocardial infarction Congestive heart failure Hypertension Colon cancer Sibling Diabetes mellitus Congestive heart failure Hypertension Sibling History of blood clots Diabetes mellitus Sibling History of blood clots Diabetes mellitus Mother Diabetes mellitus Chronic obstructive pulmonary disease Sibling Diabetes mellitus Sibling Diabetes mellitus Sibling Diabetes mellitus Sibling Diabetes mellitus Sibling Diabetes mellitus Social History Social History Social History: He lives in a mobile home that does not have an hot water heater. He lives with his fileodane and her 13-year-old nephew. He he is on disability due to his intellectual disability. He has smoked as much as 2 packs cigarettes per day but has cut back to 1-2 cigarettes per day since October 2022. He used to be an alcoholic in drink a case of beer a day but stopped drinking alcohol in 2019. He used to smoke marijuana but has not done so since he was diagnosed with heart failure. He denies any other illicit substance use. He used to also cut and has associated scars on his forearms. They have 3 dogs and 3 cats. Code status: Full code Surrogate decision maker: Fred Marshall (significant other) Smoking packs per day: 0.5 Smoking cigarettes per day: 10.0 Years smoked: 31 Smoking pack-years: 15.50 Smoking status: Current every day smoker Tobacco type: cigarettes Second hand tobacco smoke exposure: Yes Additional smoking assessment comments: 2 packs/day previously, cut down to 1-2 cigarettes/day and has quit 03/13/23 Alcohol intake: former Drinks per week: 0 Substance use: never Substance use type: marijuana Lack of Transportation: No Lack of Food: Never True Current Housing: I Have Housing Concerned About Future Housing: No Difficulty Paying Gas/Electric Bills: No Difficulty Paying for M
[2024-01-24 01:26] VITALS: BP 186/108; PULSE 86; RESP 17; O2SAT 98
== END 2024-01-24 01:35 | disposition home or self-care (01) ==
PROVIDERS: Emergency Provider Emergency Medicine; PCP Internal Medicine
DX: J44.9 Chronic obstructive pulmonary disease, unspecified (principal); I10 Essential (primary) hypertension; F31.9 Bipolar disorder, unspecified; E78.5 Hyperlipidemia, unspecified; G47.33 Obstructive sleep apnea (adult) (pediatric); Z86.711 Personal history of pulmonary embolism; E11.9 Type 2 diabetes mellitus without complications; F17.210 Nicotine dependence, cigarettes, uncomplicated
CPT/HCPCS: 36415; 71045; 80053; 80307; 83690; 84484; 85025; 85610; 85730; 93005; 94640; 96365; 96375; 99284; A9270; J1100; J3475

== ENCOUNTER 2024-02-14 14:48 | Emergency (ER) | payer MEDICARE, MEDICAID, SELFPAY ==
[2024-02-14] VITALS (7 sets, daily range): BP systolic 161–184; BP diastolic 89–115; PULSE 87–94; RESP 16–23; TEMP 36.5; O2SAT 98–100
--- NOTE | ~2024-02-14 | XR_ITS ---
EXAMINATION: XR chest 2V Exam Date/Time: 02/14/2024 15:24 CDT HISTORY: CP Comparison: 06/24/2024. RESULT: Lines, tubes, and devices: None. Lungs and pleura: Clear. Cardiomediastinal silhouette: Stable. Other: No acute osseous or upper abdominal finding. IMPRESSION: No acute cardiopulmonary process. Reviewed, dictated and finalized at location K.
--- NOTE | 2024-02-14 14:50 | ECG_ITS ---
SEE SCANNED COPY FOR CONFIRMED REPORT MTDD
[2024-02-14 15:15] LABS: Basophils Absolute Auto 0.1 K/mm3 (0.0-0.1); Basophils Percent Auto 0.6 % (0.2-1.2); Eosinophils Absolute Auto 0.3 K/mm3 (0-0.3); Eosinophils Percent Auto 2.5 % (0-4.4); Hematocrit 43.8 % (42.0-52.0); Hemoglobin 14.6 g/dL (14.0-18.0); Immature Granulocyte Absolute 0.06 K/mm3 (0.00-0.031); Immature Granulocyte Percent A 0.5 % (0-0.5); Lymphocytes Absolute Auto 2.36 K/mm3 (0.9-3.2); Lymphocytes Percent Auto 17.8 % (18.3-44.2); Mean Corpuscular HGB Conc 33.3 g/dl (32-36); Mean Corpuscular Hemoglobin 29.8 pg (26-34); Mean Corpuscular Volume 89.4 fl (80-100); Mean Platelet Volume 10.8 fl (7.4-10.4); Monocytes Absolute Auto 0.7 K/mm3 (0.1-0.6); Monocytes Percent Auto 5.6 % (2.6-8.5); Neutrophils Absolute Auto 9.7 K/mm3 (1.3-6.7); Platelet Count Result 303 k/mm3 (150-375); Red Cell Distribution Width 16.1 % (11.5-14.5); White Blood Count 13.3 K/mm3 (4.5-10.0)
[2024-02-14 15:26] LABS: Prothrombin Time 14.1 Seconds (11.1-14.7)
[2024-02-14 15:31] LABS: Alanine Aminotransferase 36 U/L (6-50); Alkaline Phosphatase 82 U/L (38-126); Anion Gap 10 mmol/L (4-12); Aspartate Amino Transferase 22 U/L (17-59); Bilirubin,Total 0.8 mg/dL (0.2-1.3); Blood Urea Nitrogen 22 mg/dL (9-20); Calcium 9.8 mg/dL (8.4-10.2); Carbon Dioxide 22 mmol/L (22-30); Chloride 106 mmol/L (98-107); Estimated CRCL calculation 90 ml/min; Estimated Glomerular Filt Rate > 60; Glucose 103 mg/dL (65-110); Lipase 467 U/L (23-300); Sodium 138 mmol/L (137-145)
[2024-02-14 15:41] LABS: Troponin I 0.013 ng/mL (0.000-0.034)
--- NOTE | 2024-02-14 16:02 | ED.GENADULT ---
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 He presents today with reports of having chest pain that started since he left the hospital - he states he didn't want to go to [place] and wanted to come here. He states he is having SOB with exertion/ denies fever/chills. He is on Xarelto and reports he is on Metoprolol and Nifedipine for his b/p and he states he did take those today. GENERAL: Well-appearing, well-nourished, and in no acute distress. HEAD: Normocephalic, atraumatic. CHEST: Clear to auscultation. ?No respiratory distress. HEART: Regular rate and rhythm.? NEURO: ?Alert and oriented x3. Patient screened in triage and initial orders placed.? ?Additional care and disposition to be based upon?diagnostic testing and treatment. 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 He presents today with reports of having chest pain that started since he left the hospital - he states he didn't want to go to [place] and wanted to come here. He states he is having SOB with exertion/ denies fever/chills. He is on Xarelto and reports he is on Carvedilol and Losartan for his b/p and he states he did take those today. GENERAL: Well-appearing, well-nourished, and in no acute distress. HEAD: Normocephalic, atraumatic. CHEST: Clear to auscultation. ?No respiratory distress. HEART: Regular rate and rhythm.? NEURO: ?Alert and oriented x3. Patient screened in triage and initial orders placed.? ?Additional care and disposition to be based upon?diagnostic testing and treatment. <Kathleen Kenyon PA-C - Last Filed: 02/15/24 00:16> Related Data Home medications: Home Medications Medication Instructions Recorded Confirmed lisinopril 40 mg tablet 40 mg PO DAILY 03/14/23 04/09/23 albuterol sulfate 90 mcg/actuation 2 puff inhalation QID PRN 04/09/23 04/09/23 aerosol inhaler Shortness Of Breath Or Wheezing metoprolol succinate 100 mg 100 mg PO DAILY 04/09/23 04/09/23 tablet,extended release 24 hr <Gabrielle Jay February, INSTITUTIONAL COMMODITY ANALYST - Last Filed: 02/14/24 16:09> Allergies/adverse reactions: Allergies Allergy/AdvReac Type Severity Reaction Status Date / Time iodine Allergy Unknown Unknown Verified 02/14/24 15:02 Contrast Media Allergy Unknown Unknown Uncoded 02/14/24 15:02 <Gabrielle Jay February, INSTITUTIONAL COMMODITY ANALYST - Last Filed: 02/14/24 16:09> Review of Systems Review of Systems: CONSTITUTIONAL: Denies fever CARDIOVASCULAR: Reports chest pain. Denies palpitations, or edema. RESPIRATORY: Reports dyspnea. <Kathleen Kenyon PA-C - Last Filed: 02/15/24 00:16> All systems reviewed & are unremarkable except as noted in HPI and below <Kathleen Kenyon PA-C - Last Filed: 02/15/24 00:16> [facility] Past Medical History Medical History: Medical History Alcoholism in recovery Benign essential hypertension Bipolar 1 disorder, depressed COPD with asthma Hypertensive emergency Malignant tumor, spindle cell type Mixed hyperlipide
[2024-02-14 16:54] LABS: NT Pro B Type Natriuretic Pept 414 pg/mL (19.9-100)
[2024-02-14] MEDS: ASPIRIN 81 MG CHEWABLE TABLET 324 MG PO (20:11)
[2024-02-14 20:50] LABS: Troponin I 0.014 ng/mL (0.000-0.034)
[2024-02-14 21:20] LABS: Troponin I 0.013 ng/mL (0.000-0.034)
[2024-02-14] MEDS: methylPREDNISolone SOD SUCC 125 MG VIAL IV PUSH (21:23)
[2024-02-14] MEDS: ACETAMINOPHEN 500 MG TABLET 1000 MG PO (21:23)
[2024-02-14] MEDS: IPRATROPIUM 0.5 MG/ALBUTEROL SULFATE 2.5 MG AMPUL.NEB 3 ML INHALATION (21:30)
[2024-02-14] MEDS: cloNIDine HCL 0.1 MG TABLET PO (21:38)
[2024-02-15 00:40] VITALS: BP 160/87; PULSE 102; RESP 20; O2SAT 100
== END 2024-02-15 00:40 | disposition home or self-care (01) ==
PROVIDERS: Emergency Medicine; Nurse Practitioner Family; Emergency Provider Physician Assistant; PCP Internal Medicine
DX: J44.1 Chronic obstructive pulmonary disease with (acute) exacerbation (principal); R07.89 Other chest pain; I10 Essential (primary) hypertension; F17.210 Nicotine dependence, cigarettes, uncomplicated; F32.A Depression, unspecified; G47.30 Sleep apnea, unspecified; E11.9 Type 2 diabetes mellitus without complications
CPT/HCPCS: 36415; 71046; 80053; 83690; 83880; 84484; 85025; 85610; 85730; 93005; 94640; 96374; 99284; A9270; J2919